=== PATIENT | female | born 1950 | race Caucasian/White ===

== ENCOUNTER → 2023-03-08 | Outpatient (CLI) | payer MEDICARE ==
--- NOTE | 2023-03-12 18:12 | MM ---
Reason for Exam: Screening (asymptomatic). Last mammogram was performed 3 year(s) and 0 month(s) ago. Patient History: Menarche at age 14. Patient has no children. Left ovary removed at age 43. Right ovary removed at age 43. Hysterectomy at age 43. Patient used Hormonal Contraceptives for 10 years. Risk Values: Cathy 5 year model risk: 1.9%. NCI Lifetime model risk: 5.4%. Prior Study Comparison: 08/03/2017 Bilateral Screening Mammogram, [facility]. 10/17/2018 Bilateral Screening Mammogram, [facility]. Tissue Density: There are scattered fibroglandular densities. Findings: Analyzed By CAD. There is no suspicious group of microcalcifications or new suspicious mass in either breast. Overall Assessment: Negative, BI-RAD 1 Management: Screening Mammogram of both breasts in 1 year. . Patient should continue monthly self-breast exams. A clinical breast exam by your physician is recommended on an annual basis. This exam should not preclude additional follow-up of suspicious palpable abnormalities. Note on Cathy scores and lifetime risk: 1. A Cathy score greater than 3% is considered moderate risk. If this is the case, consider specialist referral to assess eligibility for a risk reducing agent. 2. If overall lifetime risk for the development of breast cancer is 20% or higher, the patient may qualify for future screening with alternating mammogram and breast MRI. Electronically signed and approved by: Cindi Mendiola M.D. Radiologist
== END | disposition home or self-care (01) ==
LOC: RADMAMWWP 14:50
PROVIDERS: ATTEND Family Medicine
DX: Z12.31 Encounter for screening mammogram for malignant neoplasm of breast (principal)
CPT/HCPCS: 77063; 77067

== ENCOUNTER 2023-04-11 08:25 | Emergency (ER) | payer MEDICARE ==
[2023-04-11 08:35] VITALS: BP 106/75; PULSE 70; RESP 18; TEMP 97.8
[2023-04-11] MEDS ORDERED: ORPHENADRINE 30 MG/ML 2 ML VIAL IM STA (08:48)
[2023-04-11] MEDS ORDERED: KETOROLAC 15 MG/ML 1 ML VIAL IM STA (08:48)
--- NOTE | 2023-04-11 08:53 | ED ---
Back Pain HPI - General Chief Complaint: Back Pain/Injury Stated Complaint: Back pain Time Seen by Provider: 04/11/23 08:37 Source: patient, RN notes reviewed, old records reviewed Limitations: no limitations - History of Present Illness Initial Comments: 72-year-old obese female presents ambulatory with complaints of low back pain that radiates down her right leg. Has a history of back pain with a L3-L4 fusion in 2009. States that she has been seeing Dr. Perea recently for her recurrent back pain that started again a couple of months ago. States that she just finished a steroid Dosepak on Wednesday. She has been going to physical therapy. Did have an MRI on Wednesday, [facility] in [place]. Denies any bowel or bladder incontinence. No fevers. She did try to take two meloxicam from 2018 with no relief last night. MD Complaint: back pain -: days(s) (3) Similar Symptoms Previously: Yes Place: home Radiation: right leg Severity scale (1-10): 10 Consistency: constant Improves With: none Worsens With: movement, walking Associated Symptoms: denies other symptoms - Related Data Previous Rx's Medication Instructions Recorded Lidocaine 5% Patch [Lidoderm] 1 patch TOPICAL DAILY 14 Days #14 04/11/23 patch Allergies Allergy/AdvReac Type Severity Reaction Status Date / Time cephalexin [From Keflex] Allergy Itching Verified 04/11/23 08:35 Review of Systems ROS Statement: Those systems with pertinent positive or pertinent negative responses have been documented in the HPI. ROS Other: All systems not noted in ROS Statement are negative. Past Medical History Past Medical History: Atrial Fibrillation, Hypertension History of Any Multi-Drug Resistant Organisms: None Reported Past Surgical History: Back Surgery, Cholecystectomy, Hysterectomy, Joint Replacement, Orthopedic Surgery Past Psychological History: No Psychological Hx Reported Smoking Status: Never smoker Past Alcohol Use History: Occasional Past Drug Use History: None Reported General Exam Limitations: no limitations General appearance: alert, in no apparent distress Head exam: Present: atraumatic Eye exam: Present: normal appearance. Absent: scleral icterus, conjunctival injection, periorbital swelling Neck exam: Present: full ROM. Absent: tenderness, meningismus Respiratory exam: Absent: respiratory distress, accessory muscle use Cardiovascular Exam: Present: regular rate GI/Abdominal exam: Present: soft Extremities exam: Present: normal capillary refill. Absent: pedal edema Right Knee exam: Present: tenderness, full knee extension Neurovascular tendon exam: Present: no vascular compromise. Absent: abnormal cap refill, extremity cold to touch Back exam: Present: tenderness (LS spine), vertebral tenderness (LS spine). Absent: CVA tenderness (R), CVA tenderness (L), paraspinal tenderness, rash noted Neurological exam: Present: alert, oriented X3, normal gait Psychiatric exam: Present: normal affect, normal mood Skin exam: Present: warm, dry, normal color. Absent: cyanosis, diaphoretic, petechiae, pallor Course Vital Signs 04/11/23 08:31 Temperature 97.8 F Pulse Rate 70 Respiratory 18 Rate Blood Pressure 106/75 O2 Sat by Pulse 100 Oximetry Medical Decision Making - Medical Decision Making Was pt. sent in by a medical professional or institution ([facility] He, FUEL YARD OPERATOR, urgent care, hospital, or fci...) When possible be specific @ -No Did you speak to anyone other than the patient for history (EMS, parent, family, police, friend...)? What history was obtained from this source @ -No Did you review nursing and triage notes (agree or disagree)? Why? @ -I reviewed and agree with nursing and triage notes Were old charts reviewed (outside hosp., previous admission, EMS record, old EKG, old radiological studies, urgent care reports/EKG's, fci records)? Report findings @ -No old charts were reviewed Differential Diagnosis (chest pain, altered mental status, abdominal pain women, abdominal pain men, vaginal bleeding, weakness, fever, dyspnea, syncope, headache, dizziness, GI bleed, back pain, seizure, CVA, palpatations, mental health, musculoskeletal)? @ -Differential Back Pain: Strain, zoster, cauda equina syndrome, epidural abscess, vertebral osteomyelitis, discitis, fracture, subluxation, disc herniation, DJD, spinal stenosis, dissection, AAA, pancreatitis, peptic ulcer disease, pyelonephritis, kidney stone, this is not meant to be an all-inclusive list. EKG interpreted by me (3pts min.). @ -n/a X-rays interpreted by me (1pt min.). @ -yes X-ray interpreted by me shows evidence of lumbar fusion with hardware. Hardware intact. No acute fractures noted. CT interpreted by me (1pt min.). @ -None done U/S interpreted by me (1pt. min.). @ -None done What testing was considered but not performed or refused? (CT, X-rays, U/S, labs)? Why? @ -None What meds were considered but not given or refused? Why? @ -I did consider steroids however patient finished a Medrol Dosepak yesterday with no relief Did you discuss the management of the patient with other professionals (professionals i.e. DrJess, PA, FUEL YARD OPERATOR, lab, RT, psych nurse, medical social worker, open cut examiner, teacher, title officer, case specialist)? Give summary @ -No Was smoking cessation discussed for >3mins.? @ -No Was critical care preformed (if so, how long)? @ -No Were there social determinants of health that impacted care today? How? (Homel essness, low income, unemployed, alcoholism, drug addiction, transportation, low edu. Level, literacy, decrease access to med. care, fdc, rehab)? @ -No Was there de-escalation of care discussed even if they declined (Discuss DNR or withdrawal of care, Hospice)? DNR status @ -No What co-morbidities impacted this encounter? (DM, HTN, Smoking, COPD, CAD, Cancer, CVA, ARF, Chemo, Hep., AIDS, mental health diagnosis, sleep apnea, morbid obesity)? @ -Obesity, chronic back pain, hypertension Was patient admitted / discharged? Hospital course, mention meds given and route, prescriptions, significant lab abnormalities, going to OR and other pertinent info. @ -Discharged 72-year-old obese female presents ambulatory with complaints of low back pain that radiates down her right leg. Has a history of back pain with a L3-L4 fusion in 2009. States that she has been seeing Dr. Perea recently for her recurrent back pain that started again a couple of months ago. States that she just finished a steroid Dosepak on Wednesday. She has been going to physical therapy. Did have an MRI on Wednesday, at [facility] in [place]. She did take two meloxicam from 2019 prescriptions with no relief last night. Patient was observed ambulating with a steady gait. Denies any history of cancer. Denies any bowel or bladder incontinence, no fevers. No saddle anesthesia. Denies any trauma. No evidence of swelling bruising or abrasions to the lumbar spine. Patient states pain is relieved when leaning forward or sitting, worsened at night having difficulty laying flat and getting comfortable. Patient states in physical therapy last appointment was . Pain started Wednesday while in the shower. We did discuss the possibility that this may be pain exacerbated by physical therapy. Radiologist interpretation no acute fracture. Fixation changes with hardware intact. Mild multilevel disc degeneration. Patient was given Toradol, Norflex and Lidoderm patch with some relief. Patient been given IM morphine. She is agreeable to discharge following up with Dr. Hazel solitario this week. States since she has been in the ER she should be able to get in sooner. She was given a prescription for Lidoderm patches. Also given a take-home pack of Tylenol 3 to use at night to help with pain. Directed to follow up with Dr. Perea this week. Case discussed with Dr. Falcon Undiagnosed new problem with uncertain prognosis? @ -No Drug Therapy requiring intensive monitoring for toxicity (Heparin, Nitro, Insulin, Cardizem)? @ -No Were any procedures done? @ -No Diagnosis/symptom? @ -Chronic low back pain Acute, or Chronic, or Acute on Chronic? @ -Acute on chronic Uncomplicated (without systemic symptoms) or Complicated (systemic symptoms)? @ -Uncomplicated Side effects of treatment? @ -No Exacerbation, Progression, or Severe Exacerbation? @ -No Poses a threat to life or bodily function? How? (Chest pain, [place], [place], pneumonia, PE, COPD, DKA, ARF, appy, cholecystitis, CVA, Diverticulitis, Homicidal, Suicidal, threat to staff... and all critical care pts) @ -No Disposition Clinical Impression: Chronic low back pain Disposition: HOME SELF-CARE Condition: Good Instructions (If sedation given, give patient instructions): Chronic Back Pain (DC), Lower Back Exercises (ED) Additional Instructions: Follow-up with Dr. Perea this week. Use Lidoderm patches in addition to Tylenol and Motrin for pain. You can take the Tylenol 3 as provided at night to help with pain as needed. Return to the emergency room with any new or concerning symptoms including fever, bowel or bladder incontinence or inability to ambulate. Prescriptions: Lidocaine 5% Patch [Lidoderm] 1 patch TOPICAL DAILY 14 Days #14 patch Is patient prescribed a controlled substance at d/c from ED?: No Referrals: Reilly Langston DO [Primary Care Provider] - 1-2 days Time of Disposition: 09:34
[2023-04-11] MEDS ORDERED: LIDOCAINE 5% PATCH TOPICAL SCH (09:00)
--- NOTE | 2023-04-11 09:31 | XR ---
EXAMINATION TYPE: XR lumbosacral spine min 4V DATE OF EXAM: 04/11/2023 9:19 AM INDICATION: Patient age:Female; 72 years old; Reason for study: pain; COMPARISON: None TECHNIQUE: Frontal, lateral and coned in L5-S1 lateral views of the spine. FINDINGS: Fixation hardware in the lumbar spine at L4-L5 and S1 with discectomy at L4-L5 and L5-S1. H ardware appears intact. Multilevel degeneration changes throughout the spine with osteophyte formatio n disc space narrowing and facet joint arthropathy. There is other source of the arterial vasculature . No evidence of any acute osseous pathology. Anterior wedging of the T11 and T10 vertebral bodies pr esent. There is normal alignment of the lumbar vertebral bodies. No significant degeneration changes throughout the spine. IMPRESSION: 1. No acute fracture. 2. Fixation changes with hardware intact. 3. Mild Multilevel disc degeneration.
[2023-04-11] MEDS ORDERED: MORPHINE SULFATE 4 MG/ML SYRINGE IM STA (09:38)
[2023-04-11] MEDS ORDERED: ACET/COD 300 MG/30 MG STARTER PACK 6 TAB BTL PO STA (09:41)
== END 2023-04-11 10:02 | disposition home or self-care (01) ==
LOC: EC 08:25
DX: G89.29 Other chronic pain (principal); M54.50 Low back pain, unspecified; I48.91 Unspecified atrial fibrillation; I10 Essential (primary) hypertension; Z88.1 Allergy status to other antibiotic agents
CPT/HCPCS: 72110; 99283; 96372 ×3; J2270; J2360; J1885

== ENCOUNTER 2023-04-12 08:49 | Emergency (ER) | payer MEDICARE ==
[2023-04-12] MEDS ORDERED: ORPHENADRINE 30 MG/ML 2 ML VIAL IM STA (10:24)
[2023-04-12] MEDS ORDERED: HYDROmorphone 1 MG/ML 1 ML SYRINGE IM STA (10:25)
[2023-04-12] MEDS ORDERED: KETOROLAC 15 MG/ML 1 ML VIAL IM STA (10:26)
[2023-04-12] MEDS ORDERED: CYCLOBENZAPRINE 10 MG TAB PO STA (10:26)
--- NOTE | 2023-04-12 11:16 | ED ---
Back Pain HPI - General Chief Complaint: Back Pain/Injury Stated Complaint: Back and knee pain Time Seen by Provider: 04/12/23 10:11 Source: patient Limitations: no limitations - History of Present Illness Initial Comments: Patient is 72-year-old female who presents to the emergency department with a chief complaint of back pain. Patient has history of chronic back pain which h as been managed well until last week when she started to have increased pain. She denies injury or falls. Pain is in the lower back worse with movement. There is tingling down the right lower extremity. She denies numbness and tingling in the groin and buttock region. Denies loss of bowel and bladder function. Denies leg weakness. She recently finished a course of prednisone. She was evaluated in the emergency department yesterday for this complaint states her pain remains uncontrolled despite discharge medication. Patient has an appointment with her pre certification specialist tomorrow. - Related Data Previous Rx's Medication Instructions Recorded Lidocaine 5% Patch [Lidoderm] 1 patch TOPICAL DAILY 14 Days #14 04/11/23 patch Allergies Allergy/AdvReac Type Severity Reaction Status Date / Time cephalexin [From Keflex] Allergy Itching Verified 04/12/23 09:02 Review of Systems ROS Statement: Those systems with pertinent positive or pertinent negative responses have been documented in the HPI. ROS Other: All systems not noted in ROS Statement are negative. Past Medical History Past Medical History: Atrial Fibrillation, Hypertension History of Any Multi-Drug Resistant Organisms: None Reported Past Surgical History: Back Surgery, Cholecystectomy, Hysterectomy, Joint Replacement, Orthopedic Surgery Past Psychological History: No Psychological Hx Reported Smoking Status: Never smoker Past Alcohol Use History: Occasional Past Drug Use History: None Reported General Exam Limitations: no limitations General appearance: alert, in no apparent distress Eye exam: Present: normal appearance, PERRL, EOMI. Absent: scleral icterus, conjunctival injection, periorbital swelling Respiratory exam: Present: normal lung sounds bilaterally. Absent: respiratory distress, wheezes, rales, rhonchi, stridor Cardiovascular Exam: Present: regular rate, normal rhythm, normal heart sounds. Absent: systolic murmur, diastolic murmur, rubs, gallop, clicks Extremities exam: Present: normal inspection, full ROM, normal capillary refill Back exam: Present: normal inspection, full ROM. Absent: tenderness, CVA tenderness (R), CVA tenderness (L) Expanded Back exam: Absent: saddle anesthesia Neurological exam: Present: alert, oriented X3, CN II-XII intact Expanded Sensory exam: Upper Extremity Light Touch: Normal, Lower Extremity Light Touch: Normal Motor strength exam: RUE: 5, LUE: 5, RLE: 5, LLE: 5 Psychiatric exam: Present: normal affect, normal mood Skin exam: Present: warm, dry, intact, normal color. Absent: rash Course Vital Signs 04/12/23 04/12/23 08:53 11:49 Temperature 97.3 F L 97.5 F L Pulse Rate 65 80 Respiratory 18 16 Rate Blood Pressure 108/77 102/45 O2 Sat by Pulse 98 97 Oximetry Medical Decision Making - Medical Decision Making Was pt. sent in by a medical professional or institution ([facility] He, ASSISTANT TODDLER TEACHER, urgent care, hospital, or alf...) When possible be specific @ -No Did you speak to anyone other than the patient for history (EMS, parent, family, police, friend...)? What history was obtained from this source @ -No Did you review nursing and triage notes (agree or disagree)? Why? @ -I reviewed and agree with nursing and triage notes Were old charts reviewed (outside hosp., previous admission, EMS record, old EKG, old radiological studies, urgent care reports/EKG's, alf records)? Report findings @ -No old charts were reviewed Differential Diagnosis (chest pain, altered mental status, abdominal pain women, abdominal pain men, vaginal bleeding, weakness, fever, dyspnea, syncope, headache, dizziness, GI bleed, back pain, seizure, CVA, palpatations, mental health)? @ -Differential Back Pain: Strain, zoster, cauda equina syndrome, epidural abscess, vertebral osteomyelitis, discitis, fracture, subluxation, disc herniation, DJD, spinal stenosis, dissection, AAA, pancreatitis, peptic ulcer disease, pyelonephritis, kidney stone, this is not meant to be an all-inclusive list. EKG interpreted by me (3pts min.). @ -None X-rays interpreted by me (1pt min.). @ -None done CT interpreted by me (1pt min.). @ -None done U/S interpreted by me (1pt. min.). @ -None done What testing was considered but not performed or refused? (CT, X-rays, U/S, labs)? Why? @Considered imaging however patient does have midline tenderness. No symptoms or signs of cauda equina What meds were considered but not given or refused? Why? @ -None Did you discuss the management of the patient with other professionals (professionals i.e. , PA, ASSISTANT TODDLER TEACHER, lab, RT, psych nurse, child welfare social worker, employment advisor, teacher, chief risk officer, immigration case worker)? Give summary @ -No Was smoking cessation discussed for >3mins.? @ -No Was critical care preformed (if so, how long)? @ -No Were there social determinants of health that impacted care today? How? (Homelessness, low income, unemployed, alcoholism, drug addiction, transportation, low edu. Level, literacy, decrease access to med. care, nursing home, rehab)? @ -No Was there de-escalation of care discussed even if they declined (Discuss DNR or withdrawal of care, Hospice)? DNR status @ -No What co-morbidities impacted this encounter? (DM, HTN, Smoking, COPD, CAD, Cancer, CVA, ARF, Chemo, Hep., AIDS, mental health diagnosis, sleep apnea, morbid obesity)? @ -None Was patient admitted / discharged? Hospital course, mention meds given and route, prescriptions, significant lab abnormalities, going to OR and other pertinent info. @ - Discharged. Pain controlled no symptoms or signs of cauda equina. Patient to follow up with her pre certification specialist tomorrow Undiagnosed new problem with uncertain prognosis? @ -[No] Drug Therapy requiring intensive monitoring for toxicity (Heparin, Nitro, Insulin, Cardizem)? @ -[No] Were any procedures done? @ -[No] Diagnosis/symptom? @ -Lumbar radiculopathy Acute, or Chronic, or Acute on Chronic? @ -Acute on chronic Uncomplicated (without systemic symptoms) or Complicated (systemic symptoms)? @ -Uncomplicated Side effects of treatment? @ -[No] Exacerbation, Progression, or Severe Exacerbation? @ -[No] Poses a threat to life or bodily function? How? (Chest pain, [place], [place], pneumonia, PE, COPD, DKA, ARF, appy, cholecystitis, CVA, Diverticulitis, Homicidal, Suicidal, threat to staff... and all critical care pts) @ -[No] Dr. Denis is my attending Disposition Clinical Impression: Lumbar radiculopathy Disposition: HOME SELF-CARE Condition: Good Instructions (If sedation given, give patient instructions): Acute Low Back Pain (ED) Additional Instructions: Take medication as directed which was prescribed to yesterday. Follow-up with Dr. Perea tomorrow as planned. Return to the emergency department if you experience new, concerning, or worsening symptoms. Is patient prescribed a controlled substance at d/c from ED?: No Referrals: Reilly Langston DO [Primary Care Provider] - 1-2 days
[2023-04-12 11:52] VITALS: BP 102/45; PULSE 80; RESP 16; TEMP 97.5
== END 2023-04-12 11:55 | disposition home or self-care (01) ==
LOC: EC 08:49
DX: M54.16 Radiculopathy, lumbar region (principal); I48.91 Unspecified atrial fibrillation; I10 Essential (primary) hypertension
CPT/HCPCS: 99283; 96372 ×2; J1170; J1885

== ENCOUNTER → 2024-03-09 | Outpatient (CLI) | payer MEDICARE ==
--- NOTE | 2024-03-11 20:17 | MM ---
Reason for Exam: Screening (asymptomatic). Last screening mammogram was performed 12 month(s) ago. Patient History: Menarche at age 14. Patient has no children. Left ovary removed at age 43. Right ovary removed at age 43. Hysterectomy at age 43. Postmenopausal. Patient used Hormonal Contraceptives for 10 years. Risk Values: Cathy 5 year model risk: 2.0%. NCI Lifetime model risk: 5.1%. Prior Study Comparison: 08/03/2017 Bilateral Screening Mammogram, [facility]. 10/17/2018 Bilateral Screening Mammogram, [facility]. 03/08/2023 Bilateral MG 3D screening mammo w/cad, [facility]. Tissue Density: There are scattered areas of fibroglandular density. Findings: Analyzed By CAD. Bilateral oil cyst calcifications redemonstrated. Superior anterior asymmetric density left upper lobe view is unchanged. There is no suspicious group of microcalcifications or new suspicious mass in either breast. Overall Assessment: Benign, BI-RAD 2 Management: Screening Mammogram of both breasts in 1 year. . Patient should continue monthly self-breast exams. A clinical breast exam by your physician is recommended on an annual basis. This exam should not preclude additional follow-up of suspicious palpable abnormalities. Note on Cathy scores and lifetime risk: 1. A Cathy score greater than 3% is considered moderate risk. If this is the case, consider specialist referral to assess eligibility for a risk reducing agent. 2. If overall lifetime risk for the development of breast cancer is 20% or higher, the patient may qualify for future screening with alternating mammogram and breast MRI. Electronically signed and approved by: Cindi Mendiola M.D. Radiologist
== END | disposition home or self-care (01) ==
LOC: RADMAMWWP 09:10
PROVIDERS: ATTEND Family Medicine
DX: Z12.31 Encounter for screening mammogram for malignant neoplasm of breast (principal); Z78.0 Asymptomatic menopausal state
CPT/HCPCS: 77063; 77067

== ENCOUNTER 2024-07-27 10:43 | Emergency (ER) | payer MEDICARE ==
--- NOTE | 2024-07-27 11:09 | ED ---
General Adult HPI - General Chief complaint: Nausea/Vomiting/Diarrhea Stated complaint: NV Time Seen by Provider: 07/27/24 10:55 Source: patient, EMS, RN notes reviewed, old records reviewed Mode of arrival: EMS Limitations: no limitations - History of Present Illness Initial comments: This is a 73-year-old female presents to the emergency department stating that she has been vomiting and nauseous and having diarrhea since Wednesday. Patient states to her family members also had this earlier in the week and she thinks she got it from them and they were all moving together. Patient denies any fever chills. Patient states she has been having some abdominal discomfort for the last few weeks it is unchanged today. Patient states she has an appointment on August 02 with a shipping agent. Patient denies any chest pain difficulty breathing shortness of breath patient is any abdominal pain. Patient has any dysuria hematuria urinary frequency. Patient [place] any back pain. Patient states she just cannot keep any liquids or food down and she is having copious amounts of diarrhea. - Related Data Previous Rx's Medication Instructions Recorded Lidocaine 5% Patch [Lidoderm] 1 patch TOPICAL DAILY 14 Days #14 04/11/23 patch Allergies Allergy/AdvReac Type Severity Reaction Status Date / Time cephalexin [From Keflex] Allergy Itching Verified 07/27/24 10:47 Review of Systems ROS Statement: Those systems with pertinent positive or pertinent negative responses have been documented in the HPI. ROS Other: All systems not noted in ROS Statement are negative. Past Medical History Past Medical History: Atrial Fibrillation, Hypertension History of Any Multi-Drug Resistant Organisms: None Reported Past Surgical History: Back Surgery, Cholecystectomy, Hysterectomy, Joint Replacement, Orthopedic Surgery Past Psychological History: No Psychological Hx Reported Smoking Status: Never smoker Past Alcohol Use History: Occasional Past Drug Use History: None Reported General Exam - General Exam Comments Initial Comments: GENERAL: Patient is well-developed and well-nourished. Patient is nontoxic and well- hydrated and is in mild distress. ENT: Neck is soft and supple. No significant lymphadenopathy is noted. Oropharynx is clear. Moist mucous membranes. Neck has full range of motion without eliciting any pain. EYES: The sclera were anicteric and conjunctiva were pink and moist. Extraocular movements were intact and pupils were equal round and reactive to light. Eyelids were unremarkable. PULMONARY: Unlabored respirations. Good breath sounds bilaterally. No audible rales rhonchi or wheezing was noted. CARDIOVASCULAR: There is a regular rate and rhythm without any murmurs gallops or rubs. ABDOMEN: Soft and nontender with normal bowel sounds. SKIN: Skin is clear with no lesions or rashes and otherwise unremarkable. NEUROLOGIC: Patient is alert and oriented x3. Cranial nerves II through XII are grossly intact. Motor and sensory are also intact. Normal speech, volume and content. Symmetrical smile. MUSCULOSKELETAL: Normal extremities with adequate strength and full range of motion. LYMPHATICS: No significant lymphadenopathy is noted PSYCHIATRIC: Normal psychiatric evaluation. Limitations: no limitations Course Vital Signs 07/27/24 07/27/24 10:44 12:16 Temperature 97.9 F Pulse Rate 73 Respiratory 18 16 Rate Blood Pressure 140/62 157/62 O2 Sat by Pulse 98 Oximetry Medical Decision Making - Medical Decision Making Was pt. sent in by a medical professional or institution ([facility] He, TRANSIT OPERATOR, urgent care, hospital, or intermediate...) When possible be specific @ -No Did you speak to anyone other than the patient for history (EMS, parent, family, police, friend...)? What history was obtained from this source @ -No Did you review nursing and triage notes (agree or disagree)? Why? @ -I reviewed and agree with nursing and triage notes Were old charts reviewed (outside hosp., previous admission, EMS record, old EKG, old radiological studies, urgent care reports/EKG's, intermediate records)? Report findings @ -No old charts were reviewed Differential Diagnosis? @ -Differential Abdominal Pain Women: Appendicitis, Cholecystitis, diverticulosis, ischemic bowel, pancreatitis, hepatitis, UTI, gastroenteritis, AAA, incarcerated hernia, bowel obstruction, constipation, inflammatory bowel, hepatitis, peptic ulcer disease, splenic infa rction, perforated viscus, vulvitis, ovarian torsion, PID, kidney stone, placenta abruption, this is not meant to be an all-inclusive list EKG interpreted by me (3pts min.). @ -As above X-rays interpreted by me (1pt min.). @ -None done CT interpreted by me (1pt min.). @ -None done U/S interpreted by me (1pt. min.). @ -None done What testing was considered but not performed or refused? (CT, X-rays, U/S, labs)? Why? @ -None What meds were considered but not given or refused? Why? @ -None Did you discuss the management of the patient with other professionals (professionals i.e. , PA, TRANSIT OPERATOR, lab, RT, psych nurse, social media coordinator, drafter topographical, teacher, corporate banking officer, watch case polisher)? Give summary @ -No Was smoking cessation discussed for >3mins.? @ -No Was critical care preformed (if so, how long)? @ -No Were there social determinants of health that impacted care today? How? (Homelessness, low income, unemployed, alcoholism, drug addiction, transportation, low edu. Level, literacy, decrease access to med. care, correction, rehab)? @ -No Was there de-escalation of care discussed even if they declined (Discuss DNR or withdrawal of care, Hospice)? DNR status @ -No What co-morbidities impacted this encounter? (DM, HTN, Smoking, COPD, CAD, Cancer, CVA, ARF, Chemo, Hep., AIDS, mental health diagnosis, sleep apnea, morbid obesity)? @ -None Was patient admitted / discharged? Hospital course, mention meds given and route, prescriptions, significant lab abnormalities, going to OR and other pertinent info. @ -Patient received 2 L of IV fluids. Patient received Zofran and Lomotil. Patient also was low on magnesium so 1 g of magnesium sulfate was given to her. Patient was reevaluated by myself after all the lab work came back and she stated that she was feeling considerably better she denied any abdominal pain at this time and states she would have already has an appointment to follow-up with previous abdominal problems with a shipping agent Undiagnosed new problem with uncertain prognosis? @ -No Drug Therapy requiring intensive monitoring for toxicity (Heparin, Nitro, Insulin, Cardizem)? @ -No Were any procedures done? @ -No Diagnosis/symptom? @ -Gastroenteritis Acute, or Chronic, or Acute on Chronic? @ -Acute Uncomplicated (without systemic symptoms) or Complicated (systemic symptoms)? @ -Complicated Side effects of treatment? @ -No Exacerbation, Progression, or Severe Exacerbation? @ -No Poses a threat to life or bodily function? How? (Chest pain, [place], [place], pneumonia, PE, COPD, DKA, ARF, appy, cholecystitis, CVA, Diverticulitis, Homicidal, Suicidal, threat to staff... and all critical care pts) @ -No Diagnosis/symptom? @ -Hypomagnesemia Acute, or Chronic, or Acute on Chronic? @ -Acute Uncomplicated (without systemic symptoms) or Complicated (systemic symptoms)? @ -Uncomplicated Side effects of treatment? @ -No Exacerbation, Progression, or Severe Exacerbation? @ -No Poses a threat to life or bodily function? How? (Chest pain, [place], [place], pneumonia, PE, COPD, DKA, ARF, appy, cholecystitis, CVA, Diverticulitis, Homicidal, Suicidal, threat to staff... and all critical care pts) @ -No - Lab Data Result diagrams: 07/27/24 11:14 07/27/24 11:14 Lab Results 07/27/24 07/27/24 07/27/24 Range/Units 11:14 11:14 13:23 WBC 16.3 H (3.8-10.6) k/uL RBC 3.96 (3.80-5.40) m/uL Hgb 10.4 L (11.4-16.0) gm/dL Hct 32.6 L (34.0-46.0) % MCV 82.3 (80.0-100.0) fL MCH 26.3 (25.0-35.0) pg MCHC 31.9 (31.0-37.0) g/dL RDW 15.5 (11.5-15.5) % Plt Count 440 (150-450) k/uL MPV 8.0 Neutrophils % 85 % Lymphocytes % 9 % Monocytes % 5 % Eosinophils % 1 % Basophils % 0 % Neutrophils # 13.8 H (1.3-7.7) k/uL Lymphocytes # 1.5 (1.0-4.8) k/uL Monocytes # 0.7 (0-1.0) k/uL Eosinophils # 0.2 (0-0.7) k/uL Basophils # 0.0 (0-0.2) k/uL Hypochromasia Slight Sodium 136 L (137-145) mmol/L Potassium 3.6 (3.5-5.1) mmol/L Chloride 103 (98-107) mmol/L Carbon Dioxide 25 (22-30) mmol/L Anion Gap 8 mmol/L BUN 17 (7-17) mg/dL Creatinine 1.53 H (0.52-1.04) mg/dL Est GFR (CKD-EPI)AfAm 39 (>60 ml/min/1.73 sqM) Est GFR (CKD-EPI)NonAf 34 (>60 ml/min/1.73 sqM) Glucose 232 H (74-99) mg/dL Calcium 8.7 (8.4-10.2) mg/dL Magnesium 1.3 L (1.6-2.3) mg/dL Total Bilirubin 0.7 (0.2-1.3) mg/dL AST 44 H (14-36) U/L ALT 32 (4-34) U/L Alkaline Phosphatase 135 H (38-126) U/L Total Protein 6.3 (6.3-8.2) g/dL Albumin 3.3 L (3.5-5.0) g/dL Urine Color Colorless Urine Appearance Clear (Clear) Urine pH 5.5 (5.0-8.0) Ur Specific [place] 1.006 (1.001-1.035) Urine Protein Negative (Negative) Urine Glucose (UA) Negative (Negative) Urine Ketones Negative (Negative) Urine Blood Negative (Negative) Urine Nitrite Negative (Negative) Urine Bilirubin Negative (Negative) Urine Urobilinogen <2.0 (<2.0) mg/dL Ur Leukocyte Esterase Negative (Negative) Disposition Clinical Impression: Gastroenteritis, Hypomagnesemia Disposition: HOME SELF-CARE Condition: Good Instructions (If sedation given, give patient instructions): Gastroenteritis (ED) Additional Instructions: Patient should take Zofran and Lomotil as prescribed Is patient prescribed a controlled substance at d/c from ED?: No Referrals: Reilly Langston DO [Primary Care Provider] - 1-2 days Time of Disposition: 13:55
[2024-07-27 11:19] LABS: Basophils % (A) 0 %; Eosinophils # (A) 0.2 k/uL (0-0.7); Eosinophils % (A) 1 %; HCT 32.6 % (34.0-46.0); HGB 10.4 gm/dL (11.4-16.0); Hypochromasia Slight; Lymphocytes # (A) 1.5 k/uL (1.0-4.8); Lymphocytes % (A) 9 %; MCH 26.3 pg (25.0-35.0); MCHC 31.9 g/dL (31.0-37.0); MCV 82.3 fL (80.0-100.0); Monocytes # (A) 0.7 k/uL (0-1.0); Monocytes % (A) 5 %; Neutrophils # (A) 13.8 k/uL (1.3-7.7); Neutrophils % (A) 85 %; Platelet Count 440 k/uL (150-450); RBC 3.96 m/uL (3.80-5.40); RDW 15.5 % (11.5-15.5); WBC 16.3 k/uL (3.8-10.6)
[2024-07-27] MEDS: SODIUM CHLORIDE 0.9% 2,000 ML IV ONE (11:23)
[2024-07-27] MEDS: DIPHENOX-ATROP 2.5-0.025 MG 1 EACH TAB PO STA (11:23)
[2024-07-27 11:40] LABS: ALT 32 U/L (4-34); African American GFR (CKD) 39 (>60 ml/min/1.73 sqM); Albumin 3.3 g/dL (3.5-5.0); Anion Gap 8 mmol/L; Blood Urea Nitrogen 17 mg/dL (7-17); Calcium 8.7 mg/dL (8.4-10.2); Carbon Dioxide 25 mmol/L (22-30); Chloride 103 mmol/L (98-107); Glucose 232 mg/dL (74-99); Non-African American GFR(CKD) 34 (>60 ml/min/1.73 sqM); Sodium 136 mmol/L (137-145); Total Bilirubin 0.7 mg/dL (0.2-1.3); Total Protein 6.3 g/dL (6.3-8.2)
[2024-07-27 11:41] LABS: AST 44 U/L (14-36); Alkaline Phosphatase 135 U/L (38-126); Magnesium 1.3 mg/dL (1.6-2.3); Potassium 3.6 mmol/L (3.5-5.1)
[2024-07-27 12:17] VITALS: RESP 16
[2024-07-27 13:38] LABS: Appearance,Urine Clear (Clear); Bilirubin,Urine Negative (Negative); Blood,Urine Negative (Negative); Color,Urine Colorless; Glucose,Urine (UA) Negative (Negative); Ketones,Urine Negative (Negative); Leukocyte Esterase,Urine Negative (Negative); Nitrite,Urine Negative (Negative); PH, Urine 5.5 (5.0-8.0); Protein,Urine Negative (Negative); Specific Gravity,Urine 1.006 (1.001-1.035); Urobilinogen,Urine <2.0 mg/dL (<2.0)
[2024-07-27] MEDS: MAGNESIUM SULFATE-D5W PMX 1 GM in DEXTROSE/WATER 1 100ML.BAG IVPB ONE (13:50)
[2024-07-27] MEDS: ONDANSETRON 4 MG/2 ML VIAL IVP STA (13:55)
[2024-07-27] MEDS: DIPHENOX-ATROP STARTER PACK 8 TAB BTL PO STA (15:17)
[2024-07-27] MEDS: ONDANSETRON 4 MG ODT STARTER PACK 2 TAB BTL PO STA (15:17)
[2024-07-27 15:20] VITALS: BP 114/42; PULSE 84; TEMP 98.4
--- NOTE | 2024-08-05 16:55 | US ---
EXAMINATION TYPE: US abdomen limited DATE OF EXAM: 08/05/2024 COMPARISON: NONE CLINICAL INDICATION: Female, 73 years old with history of Pain of the abdomen; Follow up to ct scan. Limited due to body habitus. TECHNIQUE: FINDINGS: Scanned left upper and lower abdominal no definite area of fluid visualized. IMPRESSION: 1. No significant fluid accumulation evident within the abdomen [facility], Workstation: [facility], 08/05/2024 4:53 PM
== END 2024-07-27 15:23 | disposition home or self-care (01) ==
LOC: EC 10:43
CPT/HCPCS: 36415; 80053; 81003; 83735; 85025; 96361; 96365; 96375; 99285

== ENCOUNTER 2024-07-30 02:50 | Inpatient (IN) | payer MEDICARE ==
--- NOTE | 2024-07-30 03:38 | ED ---
Nausea/Vomiting/Diarrhea HPI - General Chief complaint: Nausea/Vomiting/Diarrhea Stated complaint: N/V Time Seen by Provider: 07/30/24 02:55 Source: EMS Mode of arrival: EMS - History of Present Illness Initial comments: 73-year-old female with past medical history of A-fib, hypertension presents emergency department with nausea, vomiting and left sided abdominal pain. Patient was seen 3 days ago for same complaint. She was evaluated in the emergency department and discharged home with a Zofran starter pack. States that the Zofran did not assist her. She continues to have several episodes of nausea and vomiting per day. She cannot hold down any food. She is also had upwards of 6 episodes of loose watery diarrhea per day. No sick contacts with similar symptoms. Has left-sided abdominal pain. Continues to make urine. Black or bloody stools. No other alleviating, precipitating or modifying factors - Related Data Home Medications Medication Instructions Recorded Confirmed Atorvastatin [Lipitor] 20 mg PO DAILY 07/30/24 07/30/24 Calcium Carbonate/Vitamin D3 1 tab PO DAILY 07/30/24 07/30/24 [Calcium 600 mg-Vit D3 5 mcg (200 unit)] Cetirizine HCl [Zyrtec] 10 mg PO DAILY 07/30/24 07/30/24 Dofetilide [Tikosyn] 500 mcg PO BID 07/30/24 07/30/24 Multivitamins, Thera [Multivitamin 1 tab PO DAILY 07/30/24 07/30/24 (formulary)] Potassium Chloride ER [K-Dur 20] 20 meq PO BID 07/30/24 07/30/24 Rivaroxaban [Xarelto] 20 mg PO DAILY 07/30/24 07/30/24 Sucralfate [Carafate] 1 gm PO QID 07/30/24 07/30/24 dilTIAZem HCL [Tiazac] 360 mg PO DAILY 07/30/24 07/30/24 metFORMIN HCL [Glucophage] 500 mg PO BID 07/30/24 07/30/24 Previous Rx's Medication Instructions Recorded Cholestyramine (with Sugar) 4 gm PO BID@1000,1800 3 Days #6 08/07/24 [Questran Packet] packet Hydrocortisone Pr Cream 1 applic RECTAL BID 3 Days #1 each 08/07/24 [Proctosol-Hc 2.5%] Losartan [Cozaar] 100 mg PO DAILY #60 tab 08/07/24 Magnesium Oxide [Mag-Ox] 400 mg PO BID 7 Days #14 tablet 08/07/24 Pantoprazole Sodium [Protonix] 40 mg PO BID #60 tab 08/07/24 Potassium Chloride ER [K-Dur 20] 20 meq PO BID 7 Days #14 tab 08/07/24 Sodium Bicarbonate Tab 650 mg PO BID #60 tab 08/07/24 carvediloL [Coreg] 25 mg PO BID #60 tablet 08/07/24 hydrALAZINE HCL [Apresoline] 100 mg PO TID #180 tab 08/07/24 Allergies Allergy/AdvReac Type Severity Reaction Status Date / Time cephalexin [From Keflex] Allergy Itching Verified 07/30/24 10:15 Review of Systems ROS Statement: Those systems with pertinent positive or pertinent negative responses have been documented in the HPI. ROS Other: All systems not noted in ROS Statement are negative. Past Medical History Past Medical History: Atrial Fibrillation, Hypertension History of Any Multi-Drug Resistant Organisms: None Reported Past Surgical History: Ablation, Back Surgery, Cholecystectomy, Hysterectomy, Joint Replacement, Orthopedic Surgery Past Psychological History: No Psychological Hx Reported Smoking Status: Never smoker Past Alcohol Use History: Occasional Past Drug Use History: None Reported General Exam General appearance: alert, in no apparent distress Head exam: Present: atraumatic, normocephalic, normal inspection Eye exam: Present: normal appearance, PERRL, EOMI. Absent: scleral icterus, conjunctival injection, periorbital swelling ENT exam: Present: normal exam, mucous membranes moist Neck exam: Present: normal inspection. Absent: tenderness, meningismus, lymphadenopathy Respiratory exam: Present: normal lung sounds bilaterally. Absent: respiratory distress, wheezes, rales, rhonchi, stridor Cardiovascular Exam: Present: regular rate, normal rhythm, normal heart sounds. Absent: systolic murmur, diastolic murmur, rubs, gallop, clicks GI/Abdominal exam: Present: tenderness, normal bowel sounds. Absent: distended, guarding, rebound, rigid Extremities exam: Present: normal inspection, full ROM, normal capillary refill. Absent: tenderness, pedal edema, joint swelling, calf tenderness Back exam: Present: normal inspection Neurological exam: Present: alert, oriented X3, CN II-XII intact Psychiatric exam: Present: normal affect, normal mood Skin exam: Present: warm, dry, intact, normal color. Absent: rash Course Vital Signs 07/30/24 07/30/24 07/30/24 02:52 04:22 05:08 Temperature 98.1 F Pulse Rate 71 66 64 Respiratory 18 18 16 Rate Blood Pressure 137/68 122/63 127/60 O2 Sat by Pulse 98 95 95 Oximetry 07/30/24 07/30/24 07/30/24 06:47 12:54 16:41 Temperature Pulse Rate 62 78 80 Respiratory 18 18 18 Rate Blood Pressure 123/62 133/61 128/68 O2 Sat by Pulse 96 98 98 Oximetry Medical Decision Making - Medical Decision Making Was pt. sent in by a medical professional or institution ([facility], COMBUSTION ENGINEER, urgent care, hospital, or jail...) When possible be specific @ -No Did you speak to anyone other than the patient for history (EMS, parent, family, police, friend...)? What history was obtained from this source @ -Spoke with for history Did you review nursing and triage notes (agree or disagree)? Why? @ -I reviewed and agree with nursing and triage notes Were old charts reviewed (outside hosp., previous admission, EMS record, old EKG, old radiological studies, urgent care reports/EKG's, jail records)? Report findings @ -I reviewed the ED visit report from 3 days ago where patient was seen for same complaint Differential Diagnosis (chest pain, altered mental status, abdominal pain women, abdominal pain men, vaginal bleeding, weakness, fever, dyspnea, syncope, headache, dizziness, GI bleed, back pain, seizure, CVA, palpatations, mental health, musculoskeletal)? @ -Differential Abdominal Pain Women: Appendicitis, Cholecystitis, diverticulosis, ischemic bowel, pancreatitis, hepatitis, UTI, gastroenteritis, AAA, incarcerated hernia, bowel obstruction, constipation, inflammatory bowel, hepatitis, peptic ulcer disease, splenic infarction, perforated viscus, vulvitis, ovarian torsion, PID, kidney stone, placenta abruption, this is not meant to be an all-inclusive list EKG interpreted by me (3pts min.). @ -Yes and demonstrates sinus rhythm with rate of 67. ME interval 193. QRS 87. QTc of 288. No acute ST segment elevations or depressions X-rays interpreted by me (1pt min.). @ -None done CT interpreted by me (1pt min.). @ -Yes and demonstrates a flank hematoma U/S interpreted by me (1pt. min.). @ -None done What testing was considered but not performed or refused? (CT, X-rays, U/S, labs)? Why? @ -CT with contrast was considered however patient has poor kidney function What meds were considered but not given or refused? Why? @ -None Did you discuss the management of the patient with other professionals (professionals i.e. , PA, COMBUSTION ENGINEER, lab, RT, psych nurse, social worker school, sterilization technician, teacher, credit risk review officer, foster care case manager)? Give summary @ -Spoke with dr weeks for admission Was smoking cessation discussed for >3mins.? @ -No Was critical care preformed (if so, how long)? @ -No Were there social determinants of health that impacted care today? How? (Homelessness, low income, unemployed, alcoholism, drug addiction, trans portation, low edu. Level, literacy, decrease access to med. care, correction, rehab)? @ -No Was there de-escalation of care discussed even if they declined (Discuss DNR or withdrawal of care, Hospice)? DNR status @ -No What co-morbidities impacted this encounter? (DM, HTN, Smoking, COPD, CAD, Cancer, CVA, ARF, Chemo, Hep., AIDS, mental health diagnosis, sleep apnea, morbid obesity)? @ -None Was patient admitted / discharged? Hospital course, mention meds given and route, prescriptions, significant lab abnormalities, going to OR and other pertinent info. @ -Upon arrival patient seen and evaluated in room 24. Thorough history and physical exam was performed. IV access was established. Laboratory studies were conducted. Patient is given IV fluids and replacement potassium. CT was performed as patient was here with same complaints and is getting worse. CT does not demonstrate any intra-abdominal process however this is done without contrast as patient has kidney failure at this time. Due to the kidney failure I did recommend admission. Patient was agreeable. Spoke with Dr. Weeks for the admission Undiagnosed new problem with uncertain prognosis? @ -No Drug Therapy requiring intensive monitoring for toxicity (Heparin, Nitro, Insulin, Cardizem)? @ -No Were any procedures done? @ -No Diagnosis/symptom? @ -Acute abdominal pain, acute nausea vomiting, acute kidney injury, acute hypokalemia Acute, or Chronic, or Acute on Chronic? @ -acute Uncomplicated (without systemic symptoms) or Complicated (systemic symptoms)? @ -Complicated Side effects of treatment? @ -No Exacerbation, Progression, or Severe Exacerbation? @ -No Poses a threat to life or bodily function? How? (Chest pain, [place], [place], pneumonia, PE, COPD, DKA, ARF, appy, cholecystitis, CVA, Diverticulitis, Homicidal, Suicidal, threat to staff... and all critical care pts) @ -No - Lab Data Result diagrams: 08/06/24 06:45 08/07/24 10:26 Lab Results 07/30/24 07/30/24 07/30/24 Range/Units 04:00 04:00 04:00 WBC (3.8-10.6) k/uL RBC (3.80-5.40) m/uL Hgb (11.4-16.0) gm/dL Hct (34.0-46.0) % MCV (80.0-100.0) fL MCH (25.0-35.0) pg MCHC (31.0-37.0) g/dL RDW (11.5-15.5) % Plt Count (150-450) k/uL MPV Neutrophils % % Lymphocytes % % Monocytes % % Eosinophils % % Basophils % % Neutrophils # (1.3-7.7) k/uL Lymphocytes # (1.0-4.8) k/uL Monocytes # (0-1.0) k/uL Eosinophils # (0-0.7) k/uL Basophils # (0-0.2) k/uL Hypochromasia Sodium 136 L (137-145) mmol/L Potassium 2.9 L (3.5-5.1) mmol/L Chloride 104 (98-107) mmol/L Carbon Dioxide 25 (22-30) mmol/L Anion Gap 7 mmol/L BUN 28 H (7-17) mg/dL Creatinine 2.63 H (0.52-1.04) mg/dL Est GFR (CKD-EPI)AfAm 20 (>60 ml/min/1.73 sqM) Est GFR (CKD-EPI)NonAf 18 (>60 ml/min/1.73 sqM) Glucose 185 H (74-99) mg/dL Plasma Lactic Acid Emiliano 1.2 (0.7-2.0) mmol/L Calcium 8.3 L (8.4-10.2) mg/dL Magnesium 1.6 (1.6-2.3) mg/dL Total Bilirubin 0.4 (0.2-1.3) mg/dL AST 26 (14-36) U/L ALT 25 (4-34) U/L Alkaline Phosphatase 136 H (38-126) U/L Total Protein 5.5 L (6.3-8.2) g/dL Albumin 2.9 L (3.5-5.0) g/dL Lipase 100 (23-300) U/L Urine Color Urine Appearance (Clear) Urine pH (5.0-8.0) Ur Specific [place] (1.001-1.035) Urine Protein (Negative) Urine Glucose (UA) (Negative) Urine Ketones (Negative) Urine Blood (Negative) Urine Nitrite (Negative) Urine Bilirubin (Negative) Urine Urobilinogen (<2.0) mg/dL Ur Leukocyte Esterase (Negative) Urine RBC (0-5) /hpf Urine WBC (0-5) /hpf Ur Squamous Epith Cells (0-4) /hpf Urine Bacteria (None) /hpf Urine Mucus (None) /hpf SARS-CoV-2 (PCR) (Not Detectd) 07/30/24 07/30/24 07/30/24 Range/Units 04:22 04:29 06:59 WBC 12.2 H (3.8-10.6) k/uL RBC 3.60 L (3.80-5.40) m/uL Hgb 9.4 L (11.4-16.0) gm/dL Hct 29.6 L (34.0-46.0) % MCV 82.4 (80.0-100.0) fL MCH 26.1 (25.0-35.0) pg MCHC 31.7 (31.0-37.0) g/dL RDW 15.7 H (11.5-15.5) % Plt Count 434 (150-450) k/uL MPV 8.0 Neutrophils % 79 % Lymphocytes % 14 % Monocytes % 6 % Eosinophils % 0 % Basophils % 0 % Neutrophils # 9.6 H (1.3-7.7) k/uL Lymphocytes # 1.6 (1.0-4.8) k/uL Monocytes # 0.7 (0-1.0) k/uL Eosinophils # 0.0 (0-0.7) k/uL Basophils # 0.0 (0-0.2) k/uL Hypochromasia Slight Sodium (137-145) mmol/L Potassium (3.5-5.1) mmol/L Chloride (98-107) mmol/L Carbon Dioxide (22-30) mmol/L Anion Gap mmol/L BUN (7-17) mg/dL Creatinine (0.52-1.04) mg/dL Est GFR (CKD-EPI)AfAm (>60 ml/min/1.73 sqM) Est GFR (CKD-EPI)NonAf (>60 ml/min/1.73 sqM) Glucose (74-99) mg/dL Plasma Lactic Acid Emiliano (0.7-2.0) mmol/L Calcium (8.4-10.2) mg/dL Magnesium (1.6-2.3) mg/dL Total Bilirubin (0.2-1.3) mg/dL AST (14-36) U/L ALT (4-34) U/L Alkaline Phosphatase (38-126) U/L Total Protein (6.3-8.2) g/dL Albumin (3.5-5.0) g/dL Lipase (23-300) U/L Urine Color Light Yellow Urine Appearance Cloudy H (Clear) Urine pH 5.5 (5.0-8.0) Ur Specific [place] 1.014 (1.001-1.035) Urine Protein Trace H (Negative) Urine Glucose (UA) Negative (Negative) Urine Ketones Negative (Negative) Urine Blood Negative (Negative) Urine Nitrite Negative (Negative) Urine Bilirubin Negative (Negative) Urine Urobilinogen <2.0 (<2.0) mg/dL Ur Leukocyte Esterase Negative (Negative) Urine RBC 1 (0-5) /hpf Urine WBC 5 (0-5) /hpf Ur Squamous Epith Cells 5 H (0-4) /hpf Urine Bacteria Rare H (None) /hpf Urine Mucus Rare H (None) /hpf SARS-CoV-2 (PCR) Not Detected (Not Detectd) Disposition Clinical Impression: Nausea and vomiting, SABIHA (acute kidney injury), Hypokalemia, Abdominal pain Disposition: ADMITTED IP TO THIS HOSP Condition: Stable Is patient prescribed a controlled substance at d/c from ED?: No Time of Disposition: 08:18 Decision to Admit Reason: Admit from EC Decision Date: 07/30/24 Decision Time: 08:18
[2024-07-30] MEDS: METOCLOPRAMIDE 5 MG/ML 2 ML VIAL IVP STA (04:03)
[2024-07-30] MEDS: diphenhydrAMINE 50 MG/ML 1 ML VIAL IVP STA (04:05)
[2024-07-30] MEDS: MORPHINE SULFATE 4 MG/ML SYRINGE IVP STA ×2 (04:05→08:44)
[2024-07-30] MEDS: PANTOPRAZOLE 40 MG/10 ML VIAL IVP STA (04:06)
[2024-07-30] MEDS: SODIUM CHLORIDE 0.9% 1,000 ML IV STA (04:13)
[2024-07-30 04:44] LABS: Basophils % (A) 0 %; Eosinophils % (A) 0 %; HCT 29.6 % (34.0-46.0); HGB 9.4 gm/dL (11.4-16.0); Hypochromasia Slight; Lymphocytes # (A) 1.6 k/uL (1.0-4.8); Lymphocytes % (A) 14 %; MCH 26.1 pg (25.0-35.0); MCHC 31.7 g/dL (31.0-37.0); MCV 82.4 fL (80.0-100.0); Monocytes # (A) 0.7 k/uL (0-1.0); Monocytes % (A) 6 %; Neutrophils # (A) 9.6 k/uL (1.3-7.7); Neutrophils % (A) 79 %; Platelet Count 434 k/uL (150-450); RDW 15.7 % (11.5-15.5); WBC 12.2 k/uL (3.8-10.6)
[2024-07-30 05:10] LABS: ALT 25 U/L (4-34); AST 26 U/L (14-36); African American GFR (CKD) 20 (>60 ml/min/1.73 sqM); Albumin 2.9 g/dL (3.5-5.0); Alkaline Phosphatase 136 U/L (38-126); Anion Gap 7 mmol/L; Blood Urea Nitrogen 28 mg/dL (7-17); Calcium 8.3 mg/dL (8.4-10.2); Carbon Dioxide 25 mmol/L (22-30); Chloride 104 mmol/L (98-107); Glucose 185 mg/dL (74-99); Lipase 100 U/L (23-300); Non-African American GFR(CKD) 18 (>60 ml/min/1.73 sqM); Potassium 2.9 mmol/L (3.5-5.1); Sodium 136 mmol/L (137-145); Total Bilirubin 0.4 mg/dL (0.2-1.3); Total Protein 5.5 g/dL (6.3-8.2)
[2024-07-30 07:45] LABS: Appearance,Urine Cloudy (Clear); Bacteria,Urine Rare /hpf; Bilirubin,Urine Negative (Negative); Blood,Urine Negative (Negative); Color,Urine Light Yellow; Glucose,Urine (UA) Negative (Negative); Ketones,Urine Negative (Negative); Leukocyte Esterase,Urine Negative (Negative); Mucus,Urine Rare /hpf; Nitrite,Urine Negative (Negative); PH, Urine 5.5 (5.0-8.0); Protein,Urine Trace (Negative); RBC,Urine 1 /hpf (0-5); Specific Gravity,Urine 1.014 (1.001-1.035); Squamous Epithelial Cell,Urine 5 /hpf (0-4); Urobilinogen,Urine <2.0 mg/dL (<2.0); WBC,Urine 5 /hpf (0-5)
--- NOTE | 2024-07-30 07:55 | CT ---
EXAMINATION TYPE: CT abdomen pelvis wo con DATE OF EXAM: 07/30/2024 COMPARISON: None INDICATION: Abdominal pain, nausea and vomiting DLP: 1461.4 mGycm, Automated exposure control for dose reduction was used. CONTRAST: 0 mL of Isovue 300. Study performed without Oral Contrast TECHNIQUE: Axial images were obtained from above the diaphragm to the pubic rami in the axial plane a t 5 mm thick sections. Reconstructed images are reviewed on the computer in the coronal plane. FINDINGS: Limited CT sections are obtained the lung bases. The lung bases are clear. CT ABDOMEN: Beam hardening artifact artifact from lumbar spine fixation is present in some limitation . Liver: There is moderately intense fatty infiltration of the liver. Some mild peripheral scarring may be present near the inferior borders. Hepatomegaly is present measuring 21.9 cm in craniocaudal dim ension. Spleen: Normal Pancreas: Normal Adrenal glands: The adrenal glands are normal. Gallbladder: Normal Kidneys: No masses are evident. No hydronephrosis is present. No cysts are present. Delayed images were obtained through the kidneys, which remain unremarkable. Aorta: Vascular calcification is within the aorta. Inferior vena cava: Normal. CT PELVIS: Subcutaneous collection in the left flank is present measuring 2.2 x 4.5 cm. Series 201 an d 48. Consider hematoma among other etiologies. Loops of bowel within the abdomen and pelvis are normal. This study is without oral contrast limi ting evaluation. Postsurgical changes are within the sigmoid colon. Appendix: Normal as visualized. Urinary bladder: Normal. Genitourinary structures: Uterus and ovaries are not identified. Osseous structures: No suspicious lytic or sclerotic lesions. IMPRESSION: 1. Marked fatty infiltration through the enlarged liver. 2. No suspicious changes suggest bowel abnormality. 3. Left flank subcutaneous collection. Consider hematoma within the differential. [facility], Workstation: [facility], 07/30/2024 7:53 AM
[2024-07-30] MEDS ORDERED: NALOXONE 0.4 MG/ML 1 ML VIAL IV PRN (08:18)
[2024-07-30] MEDS ORDERED: ONDANSETRON 4 MG/2 ML VIAL IVP PRN (08:18)
[2024-07-30] MEDS ORDERED: MORPHINE SULFATE 4 MG/ML SYRINGE IV PRN (08:18)
[2024-07-30] MEDS: SODIUM CHLORIDE 0.9% 1,000 ML IV SCH (08:38)
[2024-07-30] MEDS: PANTOPRAZOLE 40 MG/10 ML VIAL IV SCH (08:39)
[2024-07-30] MEDS: ONDANSETRON 4 MG/2 ML VIAL IVP STA (08:41)
[2024-07-30] MEDS: MAGNESIUM SULFATE-D5W PMX 1 GM in DEXTROSE/WATER 1 100ML.BAG IVPB ONE (08:46)
[2024-07-30] MEDS: POTASSIUM CHLORIDE ER 20 MEQ TAB.ER PO STA (08:46)
[2024-07-30] MEDS: POTASSIUM CHLORIDE 20 MEQ in WATER FOR INJECTION 1 100ML.BAG IVPB STA (09:40)
[2024-07-30] MEDS ORDERED: HYDROmorphone 0.5 MG/0.5 ML SYRINGE IVP PRN (14:52)
--- NOTE | 2024-07-30 15:45 | XR ---
EXAMINATION TYPE: XR chest 1V portable DATE OF EXAM: 07/30/2024 3:33 PM CLINICAL INDICATION: Female, 73 years old with history of chf; COMPARISON: Chest radiographs from none TECHNIQUE: XR chest 1V portable Frontal view of the chest. FINDINGS: Lungs/Pleura: There is no evidence of pleural effusion, focal consolidation, or pneumothorax. Pulmonary vascularity: Unremarkable. Heart/mediastinum: Cardiomediastinal silhouette is enlarged. Musculoskeletal: No acute osseous pathology. Right rotator cuff anchor noted. IMPRESSION: Low lung volumes with a generalized hazy appearance which could represent atelectasis versus pulmonar y edema correlate with serum BNP. [facility], , 07/30/2024 3:43 PM
[2024-07-30 16:17] LABS: C Reactive Protein 5.5 mg/dL (<1.0); Digoxin 2.1 ng/mL
[2024-07-30] MEDS: SUCRALFATE 1 GM TAB PO SCH (18:01)
[2024-07-30] MEDS: hydrALAZINE HCL 50 MG TAB PO SCH (20:48)
[2024-07-30] MEDS: carvediloL 12.5 MG TAB PO SCH (20:48)
[2024-07-30] MEDS: metFORMIN 500 MG TAB PO SCH (20:49)
[2024-07-30] MEDS: POTASSIUM CHLORIDE ER 20 MEQ TAB.ER PO SCH (20:50)
[2024-07-30] MEDS: PANTOPRAZOLE 40 MG/10 ML VIAL IVP SCH (20:50)
[2024-07-30] MEDS: DOFETILIDE 500 MCG CAP PO SCH (20:55)
[2024-07-30] MEDS: METOPROLOL TARTRATE 50 MG TAB PO SCH (22:01)
--- NOTE | 2024-07-31 02:10 | HP ---
HISTORY AND PHYSICAL CHIEF COMPLAINT: Nausea, vomiting, diarrhea, and abdominal pain. HISTORY OF PRESENT ILLNESS: This 73-year-old woman with a past medical history of multiple medical problems including atrial fibrillation, was complaining of nausea, vomiting, diarrhea, and some left-sided abdominal pain. The patient apparently came to the ER previously with workup with Zofran. With lack of improvement, the patient came back again. The patient also reports multiple members of family also becoming sick with multiple symptomatology. The CT scan showed no acute abnormality, but left flank subcutaneous collection of hematoma suspected. There is no history of fever, rigors, or chills. PAST MEDICAL HISTORY: History of atrial fibrillation with ablation, cholecystectomy. Rest of the history and chart were also reviewed. HOME MEDICATIONS: Reviewed include Nexium. Dose and rest of medications reviewed. ALLERGIES: Cephalexin. FAMILY HISTORY: No history of heart disease or strokes in the family. SOCIAL HISTORY: No history of smoking. REVIEW OF SYSTEMS: Fourteen-point review of systems negative except as mentioned earlier. PHYSICAL EXAMINATION: VITAL SIGNS: Pulse is 78, blood pressure ntd, respirations 18. HEENT: Conjunctivae normal. NECK: No jugular venous distention. CARDIOVASCULAR: S1, S2. RESPIRATIONS: Breath sounds diminished at the bases. ABDOMEN: Soft, obese, nontender. No mass palpable. EXTREMITIES: Legs, no edema, no swelling. NERVOUS SYSTEM: No focal deficits. SKIN: n. LABORATORY DATA: Reviewed. WBC 12.2, hemoglobin 9.4. Potassium 2.9. ASSESSMENT: 1. Nausea, vomiting, diarrhea, possible acute gastroenteritis. 2. Acute on chronic renal failure. 3. Severe hypokalemia. 4. Atrial fibrillation. 5. Hypertension. 6. Multiple complex medical issues. RECOMMENDATIONS AND DISCUSSION: This 73-year-old woman presented with multiple complex medical issues, we will monitor the patient closely. I recommend baseline chest x-ray. Cautious IV hydration. Avoid nephrotoxic medications and Cardiology, Nephrology consultations. Evaluation of the stool including C diff, symptomatic treatment. Prognosis extremely guarded because of multiple complex medical issues. Further recommendations to follow. I would recommend a stool for C diff also. See orders for details. MMODL / IJN: [id number] / MTDD
[2024-07-31] MEDS: RIVAROXABAN 15 MG TAB PO SCH (07:58)
[2024-07-31] MEDS: LOSARTAN 50 MG TAB PO SCH ×2 (07:58→10:18)
[2024-07-31] MEDS: ATORVASTATIN 20 MG TAB PO SCH (07:58)
[2024-07-31] MEDS: DIGOXIN 125 MCG TAB PO SCH (07:58)
[2024-07-31] MEDS: MULTIVITAMINS, THERA 1 EACH TAB PO SCH (07:58)
[2024-07-31] MEDS: DILTIAZEM CD 180 MG CAP.ER.24H PO SCH (07:58)
[2024-07-31 08:41] LABS: Basophils # (A) 0.05 X 10*3/uL (0.00-0.10); Basophils % (A) 0.4 %; Eosinophils # (A) 0.12 X 10*3/uL (0.04-0.35); Eosinophils % (A) 0.9 %; HCT 32.7 % (37.2-46.3); HGB 9.9 g/dL (12.0-15.0); Lymphocytes # (A) 3.22 X 10*3/uL (0.90-5.00); Lymphocytes % (A) 23.8 %; MCH 25.8 pg (27.0-32.0); MCHC 30.3 g/dL (32.0-37.0); MCV 85.2 FL (80.0-97.0); Mean Platelet Volume 10.3 FL (9.5-12.2); Monocytes # (A) 0.93 X 10*3/uL (0.20-1.00); Monocytes % (A) 6.9 %; NRBC Per 100 WBC 0 X 10*3/uL (0.00-0.01); Neutrophils # (A) 9.12 X 10*3/uL (1.80-7.70); Neutrophils % (A) 67.4 %; Platelet Count 474 X 10*3/uL (140-440); RBC 3.84 X 10*6/uL (4.10-5.20); RDW 15.7 % (11.5-14.5); WBC 13.52 X 10*3/uL (4.50-10.00)
[2024-07-31 08:56] LABS: BUN/Creat Ratio 9.18 Ratio (12.00-20.00); Blood Urea Nitrogen 20.2 mg/dL (9.0-27.0); Calcium 8.2 mg/dL (8.7-10.3); Chloride 107 mmol/L (96-109); Glucose 155 mg/dL (70-110); Potassium 4.1 mmol/L (3.5-5.5); Sodium 141 mmol/L (135-145)
[2024-07-31] MEDS: HYDROcodone/APAP 5-325MG 1 EACH TAB PO PRN (09:40)
[2024-07-31] MEDS: carvediloL 12.5 MG TAB PO SCH (10:19)
[2024-07-31] MEDS: carvediloL 12.5 MG TAB PO STA (10:37)
--- NOTE | 2024-07-31 10:38 | P.CRDCN ---
History of Present Illness History of present illness: HISTORY OF PRESENT ILLNESS: This is a 73-year-old female with a past medical history significant for paroxysmal atrial fibrillation, recent A-fib ablation, hypertension, and bowel obstruction with previous bowel resection. Patient follows with a skip pit worker and dairy department manager at [facility]. We have been asked to see the patient in consultation for atrial fibrillation. Patient examined at the bedside. Patient states she initially came to the ER on 07/27/2024 due to generalized weakness, and diarrhea. She states she was given IV fluids and discharged home. She states that over the next couple days her symptoms worsened. She reports continued nausea, vomiting, and diarrhea. This prompted her to come back to the hospital for further evaluation. The patient currently denies any chest pain or pressure. She denies any shortness of breath. She is maintaining sinus m echanism at the time of examination. She reports that she underwent A-fib ablation on July 20, 2024 at [facility]. She states that she was initially diagnosed with A-fib about 5 or 6 years ago. She states that sometimes she does not have palpitations and is unsure when she is actually in atrial fibrillation. She denies having a recent stress test or echocardiogram. 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 Patient states that she was scheduled to see a GI physician tomorrow secondary to her ongoing symptoms. She does report having a colonoscopy a few months ago and an endoscopy last year. Patient was found to have acute kidney injury on admission with creatinine of 2.63. Repeat today is 2.2. DIAGNOSTICS: - EKG reveals sinus mechanism with nonspecific ST-T wave changes. No signs of acute ischemia. - Chest xray low lung volumes with generalized hazy appearance which could represent atelectasis versus pulmonary edema - Laboratory data: WBC 13.52. Hemoglobin 9.9. Platelet count 474. Sodium 141. Potassium 4.1. BUN 20. Creatinine 2.2. - Current home cardiac medications include digoxin 125 mcg daily, losartan 150 mg daily, metoprolol tartrate 100 mg twice a day, Xarelto 20 mg daily REVIEW OF SYSTEMS: At the time of my exam: CONSTITUTIONAL: Denies fever or chills. HEENT: Denies blurred vision, vision changes, or eye pain. Denies hemoptysis CARDIOVASCULAR: Denies chest pain. Denies orthopnea. Denies PND. Denies palpitations RESPIRATORY: Denies shortness of breath. GASTROINTESTINAL: Denies abdominal pain. Denies nausea or vomiting. HEMATOLOGIC: Denies bleeding disorders. GENITOURINARY: Denies any blood in urine. SKIN: Denies pruitis. Denies rash. PHYSICAL EXAM: VITAL SIGNS: Reviewed. GENERAL: Well-developed in no acute distress. HEENT: Head is normocephalic. Pupils are equal, round. Sclerae anicteric. Mucous membranes of the mouth are moist. Neck supple. No JVD or thyromegaly LUNGS: Respirations even and unlabored. Lungs essentially clear to auscultation bilaterally. HEART: Regular rate and rhythm. S1 and S2 heard. ABDOMEN: Soft. Nondistended. Nontender. EXTREMITIES: Normal range of motion. No clubbing or cyanosis. Peripheral pulses intact. No lower extremity edema NEUROLOGIC: Awake and alert. Oriented x 3. ASSESSMENT: Nausea, Vomiting, diarrhea, x 2 weeks, etiology unclear Paroxysmal atrial fibrillation Recent A-fib ablation, 07/20/2024 at [facility] Acute kidney injury Hypertension History of bowel obstruction with previous bowel resection Obesity: BMI 41.8 PLAN: Patient states she has not had a recent echocardiogram performed. We will obtain 2D echo to assess cardiac structure and function Discontinue metoprolol. Continue carvedilol. Increase dosage to 25 mg twice a day Decrease losartan to 100 mg daily Discontinue digoxin Continue to monitor kidney function. Patient's kidney function is improving this morning. However if patient's kidney function remains abnormal, will need to decrease dose of dofetilide. Continue anticoagulation with Xarelto Obtain records from [facility] Further recommendations pending patient course Nurse practitioner note has been reviewed by physician. Signing provider agrees with the documented findings, assessment, and plan of care documented by CABLE TOWER OPERATOR as a scribe. Past Medical History Past Medical History: Atrial Fibrillation, Hypertension History of Any Multi-Drug Resistant Organisms: None Reported Past Surgical History: Ablation, Back Surgery, Cholecystectomy, Hysterectomy, Joint Replacement, Orthopedic Surgery Past Psychological History: No Psychological Hx Reported Smoking Status: Never smoker Past Alcohol Use History: Occasional Past Drug Use History: None Reported Medications and Allergies Home Medications Medication Instructions Recorded Confirmed Type Atorvastatin [Lipitor] 20 mg PO DAILY 07/30/24 07/30/24 History Calcium Carbonate/Vitamin D3 1 tab PO DAILY 07/30/24 07/30/24 History [Calcium 600 mg-Vit D3 5 mcg (200 unit)] Cetirizine HCl [Zyrtec] 10 mg PO DAILY 07/30/24 07/30/24 History Digoxin [Digitek] 125 mcg PO DAILY 07/30/24 07/30/24 History Dofetilide [Tikosyn] 500 mcg PO BID 07/30/24 07/30/24 History Esomeprazole Magnesium [NexIUM] 40 mg PO BID 07/30/24 07/30/24 History Furosemide [Lasix] 40 mg PO DAILY 07/30/24 07/30/24 History Losartan Potassium [Cozaar] 150 mg PO DAILY 07/30/24 07/30/24 History Metoprolol Tartrate [Lopressor] 100 mg PO BID 07/30/24 07/30/24 History Multivitamins, Thera [Multivitamin 1 tab PO DAILY 07/30/24 07/30/24 History (formulary)] Potassium Chloride ER [K-Dur 20] 20 meq PO BID 07/30/24 07/30/24 History Rivaroxaban [Xarelto] 20 mg PO DAILY 07/30/24 07/30/24 History Sucralfate [Carafate] 1 gm PO QID 07/30/24 07/30/24 History carvediloL [Coreg] 12.5 mg PO BID 07/30/24 07/30/24 History dilTIAZem HCL [Tiazac] 360 mg PO DAILY 07/30/24 07/30/24 History hydrALAZINE HCL [Apresoline] 50 mg PO BID 07/30/24 07/30/24 History metFORMIN HCL [Glucophage] 500 mg PO BID 07/30/24 07/30/24 History Allergies Allergy/AdvReac Type Severity Reaction Status Date / Time cephalexin [From Keflex] Allergy Itching Verified 07/30/24 10:15 citric acid Allergy Rash/Hives Verified 07/31/24 08:09 Physical Exam Vitals: Vital Signs Temp Pulse Pulse Resp BP BP Pulse Ox 07/31/24 00:20 98.4 F 75 17 150/72 94 L 07/30/24 19:01 97.9 F 77 18 155/70 97 07/30/24 17:30 98 F 73 18 158/81 97 07/30/24 16:41 80 18 128/68 98 07/30/24 12:54 78 18 133/61 98 Intake and Output 07/30/24 07/31/24 07/31/24 22:59 06:59 14:59 Intake Total 1680 Balance 1680 Intake: Intake, IV Titration 1560 Amount Sodium Chloride 0.9% 1, 1560 000 ml @ 130 mls/hr IV . Q7H42M MARIE Rx#:[id number] Oral 120 Other: # Voids 3 # Bowel Movements 1 Results 07/31/24 05:44 07/31/24 05:44 Current Medications Generic Name Dose Route Start Last Admin Trade Name Freq PRN Reason Stop Dose Admin Hydrocodone Bitart/Acetaminophen 1 each 07/30/24 14:52 Hydrocodone/Apap 5-325mg 1 Each Tab PO Q6HR PRN Pain Atorvastatin Calcium 20 mg 07/31/24 09:00 07/31/24 07:58 Atorvastatin 20 Mg Tab PO 20 mg DAILY MARIE Administration Carvedilol 12.5 mg 07/30/24 21:00 07/31/24 07:57 Carvedilol 12.5 Mg Tab PO 12.5 mg BID MARIE Administration Digoxin 125 mcg 07/31/24 09:00 07/31/24 07:58 Digoxin 125 Mcg Tab PO 125 mcg DAILY MARIE Administration Diltiazem HCl 360 mg 07/31/24 09:00 07/31/24 07:58 Diltiazem Cd 180 Mg Cap.Er.24h PO 360 mg DAILY MARIE Administration Dofetilide 500 mcg 07/30/24 21:00 07/31/24 07:57 Dofetilide 500 Mcg Cap PO 500 mcg BID MARIE Administration Hydralazine HCl 50 mg 07/30/24 21:00 07/31/24 07:57 Hydralazine Hcl 50 Mg Tab PO 50 mg BID MARIE Administration Hydromorphone HCl 0.5 mg 07/30/24 14:52 Hydromorphone 0.5 Mg/0.5 Ml Syringe IVP Q4HR PRN Severe Pain (Scale 7 to 10) Sodium Chloride 1,000 mls @ 130 mls/hr 07/30/24 08:30 07/31/24 07:57 Saline 0.9% IV 130 mls/hr .Q7H42M MARIE Administration Losartan Potassium 150 mg 10/07/24 09:00 07/31/24 07:58 Losartan 50 Mg Tab PO 150 mg DAILY MARIE Administration Metformin HCl 500 mg 07/30/24 21:00 07/31/24 07:57 Metformin 500 Mg Tab PO 500 mg BID MARIE Administration Metoprolol Tartrate 100 mg 07/30/24 21:00 07/30/24 22:01 Metoprolol Tartrate 50 Mg Tab PO Not Given BID MARIE Multivitamins 1 each 07/31/24 09:00 07/31/24 07:58 Multivitamins, Thera 1 Each Tab PO 1 each DAILY MARIE Administration Naloxone HCl 0.2 mg 07/30/24 08:18 Naloxone 0.4 Mg/Ml 1 Ml Vial IV Q2M PRN Opioid Reversal Ondansetron HCl 4 mg 07/30/24 08:18 Ondansetron 4 Mg/2 Ml Vial IVP Q8HR PRN Nausea And Vomiting Pantoprazole Sodium 40 mg 07/30/24 21:00 07/31/24 07:57 Pantoprazole 40 Mg/10 Ml Vial IVP 40 mg BID MARIE Administration Potassium Chloride 20 meq 07/30/24 21:00 07/31/24 07:58 Potassium Chloride Er 20 Meq Tab.Er PO 20 meq BID MARIE Administration Rivaroxaban 15 mg 07/31/24 09:00 07/31/24 07:58 Rivaroxaban 15 Mg Tab PO 15 mg DAILY MARIE Administration Protocol Sucralfate 1 gm 07/30/24 18:00 07/31/24 07:57 Sucralfate 1 Gm Tab PO 1 gm QID MARIE Administration Intake and Output 07/30/24 07/31/24 07/31/24 22:59 06:59 14:59 Intake Total 1680 Balance 1680 Intake: Intake, IV Titration 1560 Amount Sodium Chloride 0.9% 1, 1560 000 ml @ 130 mls/hr IV . Q7H42M [facility] Rx#:[id number] Oral 120 Other: # Voids 3 # Bowel Movements 1 07/30/24 04:29 07/30/24 04:00
[2024-07-31 12:47] LABS: Cryptosporidium Antigen Negative (Negative)
[2024-07-31 13:29] VITALS: BMI 41.8
[2024-07-31] MEDS: CHOLESTYRAMINE (WITH SUGAR) 4 GM PACKET PO SCH (14:03)
[2024-07-31] MEDS: HYDROCORTISONE 2.5% RECTAL CREAM 30 GM TUBE RECTAL SCH (14:44)
[2024-07-31] MEDS: LEVOFLOXACIN 500MG-D5W PMX 500 MG in DEXTROSE/WATER 1 100ML.BAG IVPB SCH (15:04)
[2024-07-31] MEDS: LOPERAMIDE 2 MG CAP PO STA (15:18)
[2024-07-31] MEDS: metroNIDAZOLE-NS PMX 500 MG in SALINE 1 100ML.BAG IVPB SCH (16:58)
--- NOTE | 2024-07-31 17:50 | CA ---
Transthoracic Echo Report Name: Zayra Casiano Age: 73 Gender: F : 1950 Exam Date: 07/31/2024 14:08 Exam Location: [place] [facility] Ht (in): 68 Wt (lb): 275 Ordering Physician: Savita Domínguez Attending/Referring Phys: [id number], Catrachita Order Checker Packer Processer Krissy Steinberg RDCS Procedure CPT: Indications: LV function, hx of AF, recent ablation Cardiac Hx: Technical Quality: Good Contrast 1: Total Dose (mL): Contrast 2: Total Dose (mL): MEASUREMENTS (Male / Female) Normal Values 2D ECHO LV Diastolic Diameter PLAX 4.3 cm 4.2 - 5.9 / 3.9 - 5.3 cm LV Systolic Diameter PLAX 2.9 cm IVS Diastolic Thickness 1.4 cm 0.6 - 1.0 / 0.6 - 0.9 cm LVPW Diastolic Thickness 1.3 cm 0.6 - 1.0 / 0.6 - 0.9 cm LV Relative Wall Thickness 0.6 RV Internal Dim ED PLAX 3.6 cm LA Systolic Diameter LX 4.5 cm 3.0 - 4.0 / 2.7 - 3.8 cm LV Diastolic Volume MOD 4C 157.6 cm??? LV Systolic Volume MOD 4C 62.8 cm??? LV Ejection Fraction MOD 4C 60.2 % LV Cardiac Index MOD 4C 2610.7 cm???/min???m??? LV Diastolic Length 4C 8.1 cm LV Systolic Length 4C 6.4 cm LV Diastolic Volume MOD 2C 74.3 cm??? LV Systolic Volume MOD 2C 28.6 cm??? LV Ejection Fraction MOD 2C 61.5 % LV Cardiac Index MOD 2C 1256.7 cm???/min???m??? LV Diastolic Length 2C 7.5 cm LV Systolic Length 2C 6.0 cm LA Volume 105.2 cm??? 18 - 58 / 22 - 52 cm??? LA Volume Index 42.0 cm???/m??? 16 - 28 cm???/m??? M-MODE Aortic Root Diameter MM 3.4 cm AV Cusp Separation MM 2.3 cm DOPPLER AV Peak Velocity 205.2 cm/s AV Peak Gradient 16.8 mmHg MV Area PHT 2.8 cm??? Mitral E Point Velocity 123.0 cm/s Mitral A Point Velocity 96.0 cm/s Mitral E to A Ratio 1.3 MV Deceleration Time 266.6 ms TR Peak Velocity 283.3 cm/s TR Peak Gradient 32.1 mmHg Right Ventricular Systolic Press 36.0 mmHg FINDINGS Left Ventricle Left ventricular ejection fraction is estimated at 55-60 %. Left ventricular cavity size normal. Normal left ventricular systolic function with no obvious regional wall motion abnormalities. Mildly increased left ventricular wall thickness. Right Ventricle Mild right ventricular dilatation. Mild pulmonary hypertension. Right Atrium Normal right atrial size. No right atrial thrombus or mass seen. Left Atrium Moderately increased left atrial diameter. Severely increased left atrial volume. Moderately increased left atrial area. No left atrial thrombus or mass present. Mitral Valve Structurally normal mitral valve. No mitral stenosis, regurgitation or prolapse.mitral annular calcification. Aortic Valve Trileaflet aortic valve. No aortic valve stenosis or regurgitation. Tricuspid Valve Structurally normal tricuspid valve. Mild tricuspid regurgitation. Pulmonic Valve Structurally normal pulmonic valve. Trace pulmonic regurgitation. Pericardium No pericardial or pleural effusion. Aorta Normal size aortic root and proximal ascending aorta. CONCLUSIONS 1. Normal left ventricular size and systolic function 2. Mild tricuspid regurgitation with mild pulmonary hypertension Previewed by: Dr. Tamara Krause MD (Electronically Signed) Final Date: 31 July 2024 17:49
--- NOTE | 2024-07-31 23:34 | PN ---
PROGRESS NOTE DATE OF SERVICE: 07/31/2024 SUBJECTIVE: This is a 73-year-old woman who was admitted with abdominal symptoms and complaining of continuous diarrhea, abdominal distention, and the patient is continuously dehydrated. The patient also had a suspicious lesion in the CT scan for possible hematoma. Multiple consultants are following the patient closely. PAST MEDICAL HISTORY: Reviewed. REVIEW OF SYSTEMS: Fourteen-point review is negative except as mentioned earlier. CURRENT MEDICATIONS: Reviewed. PHYSICAL EXAMINATION: VITAL SIGNS: Pulse is 82, blood pressure 152/89, respirations 16. HEENT: Conjunctivae normal. CARDIOVASCULAR: S1, S2. RESPIRATIONS: Breath sounds diminished at the bases. A few scattered rhonchi. ABDOMEN: Soft. Mild diffuse discomfort. LEGS: No edema. NERVOUS SYSTEM: Nonfocal. LABORATORY DATA: WBC 13.5, hemoglobin 9.9, ESR is 59, creatinine is 2.2. CRP is 5.5. Stool lactoferrin is positive. C diff is negative. EKG showed atrial fibrillation with controlled ventricular rate. ASSESSMENT: 1. Nausea, vomiting, diarrhea, possible infectious gastroenteritis. 2. Acute on chronic renal failure. 3. Severe hypokalemia, present on admission. 4. Atrial fibrillation, status post ablation. 5. Hypertension. 6. Multiple complex medical issues. RECOMMENDATIONS: Recommend to continue current management and continue symptomatic treatment. Continue with symptomatic treatment for the diarrhea. Obtain stool cultures. Infectious Disease evaluation. The white count is elevated. I would also recommend empiric antibiotics at this time. Guarded prognosis. Further recommendations to follow. See orders for further details. MMODL / IJN: [id number] /
--- NOTE | 2024-08-01 08:32 | P.CONS ---
History of Present Illness - Reason for Consult Consult date: 07/31/24 Acute gastroenteritis Requesting physician: Maryam Leon - Chief Complaint Nausea vomiting and diarrhea x 1 week - History of Present Illness Patient is a 73-year-old female with a past medical history significant for hypertension atrial fibrillation, presenting to the hospital for evaluation of nausea vomiting left abdominal pain and diarrhea in this patient s ymptom has been going on for more than a week previously evaluated in this ER last week and has been started home on Zofran without any improvement patient has been complaining of multiple episodes of vomiting throughout the day denies any hematemesis patient also complaining of lower abdominal pain describing it to be sharp to colicky moderate intensity without radiation and did have about 6-7 episodes of loose stools per day with some mucus in the stool but no blood denies having any high-grade fever or any chills and did not recall any recent antibiotic exposure patient on presentation to the hospital was afebrile and no fever have been called subsequently patient was not tachycardic hypotensive or hypoxic patient did have elevated white count of 12.2 which is up to 13.52 with a left shift BUN and creatinine has been mildly elevated liver enzymes are normal CRP was elevated urine has been negative stool lactoferrin was positive stool for C. difficile negative COVID testing was negative patient did have a abdominal pelvis CT fat infiltration throughout the enlarged liver no suspicious changes suggestive of an abnormality patient has been treated with Levaquin and Flagyl infectious disease was consulted for further management Review of Systems Positive point and negatives has been mentioned in the HPI, complete review of systems was performed and all other systems are negative Past Medical History Past Medical History: Atrial Fibrillation, Hypertension History of Any Multi-Drug Resistant Organisms: None Reported Past Surgical History: Ablation, Back Surgery, Cholecystectomy, Hysterectomy, Joint Replacement, Orthopedic Surgery Past Psychological History: No Psychological Hx Reported Smoking Status: Never smoker Past Alcohol Use History: Occasional Past Drug Use History: None Reported Medications and Allergies Home Medications Medication Instructions Recorded Confirmed Type Atorvastatin [Lipitor] 20 mg PO DAILY 07/30/24 07/30/24 History Calcium Carbonate/Vitamin D3 1 tab PO DAILY 07/30/24 07/30/24 History [Calcium 600 mg-Vit D3 5 mcg (200 unit)] Cetirizine HCl [Zyrtec] 10 mg PO DAILY 07/30/24 07/30/24 History Digoxin [Digitek] 125 mcg PO DAILY 07/30/24 07/30/24 History Dofetilide [Tikosyn] 500 mcg PO BID 07/30/24 07/30/24 History Esomeprazole Magnesium [NexIUM] 40 mg PO BID 07/30/24 07/30/24 History Furosemide [Lasix] 40 mg PO DAILY 07/30/24 07/30/24 History Losartan Potassium [Cozaar] 150 mg PO DAILY 07/30/24 07/30/24 History Metoprolol Tartrate [Lopressor] 100 mg PO BID 07/30/24 07/30/24 History Multivitamins, Thera [Multivitamin 1 tab PO DAILY 07/30/24 07/30/24 History (formulary)] Potassium Chloride ER [K-Dur 20] 20 meq PO BID 07/30/24 07/30/24 History Rivaroxaban [Xarelto] 20 mg PO DAILY 07/30/24 07/30/24 History Sucralfate [Carafate] 1 gm PO QID 07/30/24 07/30/24 History carvediloL [Coreg] 12.5 mg PO BID 07/30/24 07/30/24 History dilTIAZem HCL [Tiazac] 360 mg PO DAILY 07/30/24 07/30/24 History hydrALAZINE HCL [Apresoline] 50 mg PO BID 07/30/24 07/30/24 History metFORMIN HCL [Glucophage] 500 mg PO BID 07/30/24 07/30/24 History Allergies Allergy/AdvReac Type Severity Reaction Status Date / Time cephalexin [From Keflex] Allergy Itching Verified 07/30/24 10:15 Physical Exam Vitals: Vital Signs Temp Pulse Pulse Resp BP BP Pulse Ox 07/31/24 13:08 97.9 F 76 16 123/67 95 07/31/24 08:00 97.6 F 82 16 155/89 97 07/31/24 00:20 98.4 F 75 17 150/72 94 L 07/30/24 19:01 97.9 F 77 18 155/70 97 07/30/24 17:30 98 F 73 18 158/81 97 07/30/24 16:41 80 18 128/68 98 Intake and Output 07/31/24 07/31/24 07/31/24 06:59 14:59 22:59 Intake Total 1680 1120 240 Balance 1680 1120 240 Intake: Intake, IV Titration 1560 Amount Sodium Chloride 0.9% 1, 1560 000 ml @ 130 mls/hr IV . Q7H42M [facility] Rx#:[id number] Oral 120 1120 240 Other: # Voids 3 Weight 124.738 kg GENERAL DESCRIPTION: Elderly female lying in bed, no distress. No tachypnea or accessory muscle of respiration use. HEENT: Shows Pallor , no scleral icterus. Oral mucous membrane is dry. No pharyngeal erythema or thrush NECK: Trachea central, no thyromegaly. LUNGS: Unlabored breathing. Clear to auscultation anteriorly. No wheeze or crac kle. HEART: S1, S2, regular rate and rhythm. No loud murmur ABDOMEN: Soft, mild lower abdominal tenderness EXTREMITIES: No edema of feet. SKIN: No rash, no masses palpable. NEUROLOGICAL: The patient is awake, alert, oriented x3, mood and affect normal. Results CBC & Chem 7: 07/31/24 05:44 07/31/24 05:44 Labs: Abnormal Lab Results - Last 24 Hours (Table) 07/30/24 07/30/24 07/30/24 Range/Units 15:32 15:32 18:30 WBC (4.50-10.00) X 10*3/uL RBC (4.10-5.20) X 10*6/uL Hgb (12.0-15.0) g/dL Hct (37.2-46.3) % MCH (27.0-32.0) pg MCHC (32.0-37.0) g/dL RDW (11.5-14.5) % Plt Count (140-440) X 10*3/uL Immature Gran # (0.00-0.04) X 10*3/uL Neutrophils # (1.80-7.70) X 10*3/uL ESR 59 H (0-30) mm/Hr Carbon Dioxide (21.6-31.8) mmol/L Anion Gap (4.00-12.00) mmol/L Creatinine (0.6-1.5) mg/dL Est GFR (CKD-EPI) (>=60) BUN/Creatinine Ratio (12.00-20.00) Ratio Glucose (70-110) mg/dL Calcium (8.7-10.3) mg/dL C-Reactive Protein 5.5 H (<1.0) mg/dL Stool Lactoferrin Positive A (Negative) 07/31/24 07/31/24 Range/Units 05:44 05:44 WBC 13.52 H (4.50-10.00) X 10*3/uL RBC 3.84 L (4.10-5.20) X 10*6/uL Hgb 9.9 L (12.0-15.0) g/dL Hct 32.7 L (37.2-46.3) % MCH 25.8 L (27.0-32.0) pg MCHC 30.3 L (32.0-37.0) g/dL RDW 15.7 H (11.5-14.5) % Plt Count 474 H (140-440) X 10*3/uL Immature Gran # 0.08 H (0.00-0.04) X 10*3/uL Neutrophils # 9.12 H (1.80-7.70) X 10*3/uL ESR (0-30) mm/Hr Carbon Dioxide 21.0 L (21.6-31.8) mmol/L Anion Gap 13.00 H (4.00-12.00) mmol/L Creatinine 2.2 H (0.6-1.5) mg/dL Est GFR (CKD-EPI) 23 L (>=60) BUN/Creatinine Ratio 9.18 L (12.00-20.00) Ratio Glucose 155 H (70-110) mg/dL Calcium 8.2 L (8.7-10.3) mg/dL C-Reactive Protein (<1.0) mg/dL Stool Lactoferrin (Negative) Assessment and Plan (1) Leukocytosis Current Visit: Yes Status: Acute Code(s): D72.829 - ELEVATED WHITE BLOOD CELL COUNT, UNSPECIFIED SNOMED Code(s): 634352486 (2) Allergy to cephalosporin Current Visit: Yes Status: Acute Code(s): Z88.1 - ALLERGY STATUS TO OTHER ANTIBIOTIC AGENTS SNOMED Code(s): 252756012 (3) Gastroenteritis Current Visit: No Status: Acute Code(s): K52.9 - NONINFECTIVE GASTROENTERITIS AND COLITIS, UNSPECIFIED SNOMED Code(s): 53424619 Plan: 1patient presented to hospital with nausea vomiting and diarrhea that has been going on for almost a week and this patient did have elevated white count but no fever with a question of infectious versus noninfectious etiology patient did not have any antibiotic exposure and stool for C. difficile negative however stool lactoferrin came back positive. 2we will wait for the stool culture to be finalized. 3-cephalexin allergy that will limit the number of antibiotic safe to use 4continue with the Levaquin and Flagyl while waiting for the workup to be completed We will follow on clinical condition and cultures to further adjust medication if needed Thank you for this consultation we will follow the patient along with you Dictation was produced using [employer] dictation software. please excuse any grammatical, word or spelling errors. Time with Patient: Greater than 30
[2024-08-01 08:41] LABS: BUN/Creat Ratio 9.76 Ratio (12.00-20.00); Blood Urea Nitrogen 16.6 mg/dL (9.0-27.0); Carbon Dioxide 20.4 mmol/L (21.6-31.8); Chloride 111 mmol/L (96-109); Glucose 158 mg/dL (70-110); Potassium 3.6 mmol/L (3.5-5.5); Sodium 141 mmol/L (135-145)
--- NOTE | 2024-08-01 09:38 | P.NPCON ---
History of Present Illness - Reason for Consult acute renal failure - History of Present Illness Reason for consultation: Acute kidney injury History of present illness: Patient is a 73-year-old female seen in renal consultation for acute kidney injury. Patient came to the hospital due to abdominal pain as well as nausea vomiting and diarrhea going on for over a week. Patient states she initially came to the hospital and was discharged and was told to hydrate herself. Symptoms worsened and she came back to the hospital. Patient states she was having multiple episodes of vomiting as well as loose bowel movements. Diarrhea is now improved and so has vomiting. Creatinine was 2.63 on admission and is 1.7 today. Unknown baseline renal function. She denies personal history of kidney disease. She denies chest pain or shortness of breath. No gross hematuria or dysuria. She was on Lasix outpatient which is currently held. She denies use of nonsteroidals. Patient states she has prediabetes. Denies history of coronary artery disease. Denies family history of renal disease. No fever or chills. Vital signs are stable. General: No acute distress. HEENT: Head exam is unremarkable. LUNGS: No audible rhonchi or wheezes. HEART: Rate and Rhythm are regular. ABDOMEN: Nontender. EXTREMITITES: No edema. Past Medical History Past Medical History: Atrial Fibrillation, Hypertension History of Any Multi-Drug Resistant Organisms: None Reported Past Surgical History: Ablation, Back Surgery, Cholecystectomy, Hysterectomy, Joint Replacement, Orthopedic Surgery Past Psychological History: No Psychological Hx Reported Smoking Status: Never smoker Past Alcohol Use History: Occasional Past Drug Use History: None Reported Medications and Allergies Home Medications Medication Instructions Recorded Confirmed Type Atorvastatin [Lipitor] 20 mg PO DAILY 07/30/24 07/30/24 History Calcium Carbonate/Vitamin D3 1 tab PO DAILY 07/30/24 07/30/24 History [Calcium 600 mg-Vit D3 5 mcg (200 unit)] Cetirizine HCl [Zyrtec] 10 mg PO DAILY 07/30/24 07/30/24 History Digoxin [Digitek] 125 mcg PO DAILY 07/30/24 07/30/24 History Dofetilide [Tikosyn] 500 mcg PO BID 07/30/24 07/30/24 History Esomeprazole Magnesium [NexIUM] 40 mg PO BID 07/30/24 07/30/24 History Furosemide [Lasix] 40 mg PO DAILY 07/30/24 07/30/24 History Losartan Potassium [Cozaar] 150 mg PO DAILY 07/30/24 07/30/24 History Metoprolol Tartrate [Lopressor] 100 mg PO BID 07/30/24 07/30/24 History Multivitamins, Thera [Multivitamin 1 tab PO DAILY 07/30/24 07/30/24 History (formulary)] Potassium Chloride ER [K-Dur 20] 20 meq PO BID 07/30/24 07/30/24 History Rivaroxaban [Xarelto] 20 mg PO DAILY 07/30/24 07/30/24 History Sucralfate [Carafate] 1 gm PO QID 07/30/24 07/30/24 History carvediloL [Coreg] 12.5 mg PO BID 07/30/24 07/30/24 History dilTIAZem HCL [Tiazac] 360 mg PO DAILY 07/30/24 07/30/24 History hydrALAZINE HCL [Apresoline] 50 mg PO BID 07/30/24 07/30/24 History metFORMIN HCL [Glucophage] 500 mg PO BID 07/30/24 07/30/24 History Allergies Allergy/AdvReac Type Severity Reaction Status Date / Time cephalexin [From Keflex] Allergy Itching Verified 07/30/24 10:15 Physical Exam Vitals: Vital Signs Temp Pulse Resp BP Pulse Ox 08/01/24 07:56 97.9 F 77 18 181/77 98 08/01/24 01:10 98.3 F 65 18 145/77 99 07/31/24 22:00 147/69 07/31/24 19:18 98.2 F 66 18 125/67 98 07/31/24 13:08 97.9 F 76 16 123/67 95 Intake and Output 07/31/24 08/01/24 08/01/24 22:59 06:59 14:59 Intake Total 1879 Balance 1879 Intake: Oral 1879 Other: Voiding Method Toilet # Voids 2 # Bowel Movements 3 Results - Lab Results Most recent lab results Calcium 8.0 mg/dL (8.7-10.3) L 08/01/24 05:26 Magnesium 1.6 mg/dL (1.6-2.3) 07/30/24 04:00 07/31/24 05:44 08/01/24 05:26 Assessment and Plan Plan: Assessment: 1. Acute kidney injury secondary to ATN secondary to hypovolemia and further worsen with the use of Lasix. Creatinine 2.63 on admission and is 1.7 today. Unknown baseline renal function. Creatinine noted to be 1.53 dated July 27, 2024. No hydronephrosis noted on kidney ultrasound. UA fairly benign. 2. Metabolic acidosis secondary to acute kidney injury and IV fluids. 3. Benign hypertension. 4. History of A-fib status post ablation. 5. Nausea vomiting and diarrhea. Possibly gastroenteritis. Symptoms seem to have improved. Plan: Maintain IV fluids. Continue to hold diuretics. Avoid nephrotoxins. Add oral bicarb. Continue to monitor renal function and urine output. Thank you for the consultation. I will continue to follow the patient with you during her hospital stay.
[2024-08-01] MEDS: hydrALAZINE HCL 50 MG TAB PO SCH (09:43)
[2024-08-01] MEDS: POTASSIUM CHLORIDE ER 20 MEQ TAB.ER PO STA (09:56)
[2024-08-01] MEDS: SODIUM BICARBONATE TAB 650 MG TAB PO SCH (09:56)
--- NOTE | 2024-08-01 10:08 | P.PN ---
Subjective HISTORY OF PRESENT ILLNESS: This is a 73-year-old female with a past medical history significant for paroxysmal atrial fibrillation, recent A-fib ablation, hypertension, and bowel obstruction with previous bowel resection. Patient follows with a sinter machine operator and director of neurology at [facility]. We have been asked to see the patient in consultation for atrial fibrillation. Patient examined at the bedside. Patient states she initially came to the ER on 07/27/2024 due to generalized weakness, and diarrhea. She states she was given IV fluids and discharged home. She states that over the next couple days her symptoms worsened. She reports continued nausea, vomiting, and diarrhea. This prompted her to come back to the hospital for further evaluation. The patient currently denies any chest pain or pressure. She denies any shortness of breath. She is maintaining sinus mechanism at the time of examination. She reports that she underwent A-fib ablation on July 20, 2024 at [facility]. She states that she was initially diagnosed with A-fib about 5 or 6 years ago. She states that sometimes she does not have palpitations and is unsure when she is actually in atrial fibrillation. She denies having a recent stress test or echocardiogram. 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 Patient states that she was scheduled to see a GI physician tomorrow secondary to her ongoing symptoms. She does report having a colonoscopy a few months ago and an endoscopy last year. Patient was found to have acute kidney injury on admission with creatinine of 2.63. Repeat today is 2.2. DIAGNOSTICS: - EKG reveals sinus mechanism with nonspecific ST-T wave changes. No signs of acute ischemia. - Chest xray low lung volumes with generalized hazy appearance which could represent atelectasis versus pulmonary edema - Laboratory data: WBC 13.52. Hemoglobin 9.9. Platelet count 474. Sodium 141. Potassium 4.1. BUN 20. Creatinine 2.2. - Current home cardiac medications include digoxin 125 mcg daily, losartan 150 mg daily, metoprolol tartrate 100 mg twice a day, Xarelto 20 mg daily 08/01/2024 Patient examined this morning at the bedside. Patient denies chest pain or pressure. Denies SOB. She reports improvement in her diarrhea. Patient states all of her symptoms have been present for about 1 month and denies having any new symptoms after her ablation. General surgery has been consulted due to CT findings revealing subcutaneous collection in the left flank measuring 2.2 x 4.5 cm. General surgery discontinued patient's Xarelto. Patient's blood pressures elevated this morning at 181/77. Echocardiogram completed revealing ejection fraction 55 to 60%, mild pulmonary hypertension, and mild tricuspid regurgitation. PHYSICAL EXAM: VITAL SIGNS: Reviewed. GENERAL: Well-developed in no acute distress. HEENT: Head is normocephalic. Pupils are equal, round. Sclerae anicteric. Mucous membranes of the mouth are moist. Neck supple. No JVD or thyromegaly LUNGS: Respirations even and unlabored. Lungs essentially clear to auscultation bilaterally. HEART: Regular rate and rhythm. S1 and S2 heard. ABDOMEN: Soft. Nondistended. Nontender. EXTREMITIES: Normal range of motion. No clubbing or cyanosis. Peripheral pulses intact. No lower extremity edema NEUROLOGIC: Awake and alert. Oriented x 3. ASSESSMENT: Nausea, Vomiting, diarrhea, x 2 weeks, etiology unclear Paroxysmal atrial fibrillation Recent A-fib ablation, 07/20/2024 at [facility] Acute kidney injury Hypertension History of bowel obstruction with previous bowel resection Obesity: BMI 41.8 Possible left flank hematoma measuring 2.2 x 4[address], Xarelto discontinued per general surgery PLAN: Losartan decreased yesterday to 100 mg daily Digoxin discontinued yesterday Increase hydralazine to 75 mg twice a day for optimal blood pressure control General Surgery has been consulted. Patient's Xarelto has been placed on hold. Case discussed with general surgery this morning. Recommend resuming anticoagulation when cleared by general surgery Continue to monitor kidney function. Patient's kidney function continues to improve this morning. However if patient's kidney function remains abnormal, will need to decrease dose of dofetilide. Continue with 500 mcg at this time. Awaiting records from [facility] of discharge summary with final med list after her ablation Further recommendations pending patient course Nurse practitioner note has been reviewed by physician. Signing provider agrees with the documented findings, assessment, and plan of care documented by LEATHER PATCHER as a scribe. Objective - Vital Signs Vital signs: Vital Signs Temp 97.9 F 08/01/24 07:56 Pulse 77 08/01/24 07:56 Resp 18 08/01/24 07:56 BP 181/77 08/01/24 07:56 Pulse Ox 98 08/01/24 07:56 FiO2 Intake & Output 07/31/24 08/01/24 08/01/24 18:59 06:59 18:59 Intake Total 3000 Balance 3000 Weight 124.738 kg Intake: Oral 3000 Other: Voiding Method Toilet Toilet # Voids 2 # Bowel Movements 3 - Labs CBC & Chem 7: 07/31/24 05:44 08/01/24 05:26 Labs: Abnormal Lab Results - Last 24 Hours (Table) 07/30/24 08/01/24 Range/Units 18:30 05:26 Chloride 111 H (96-109) mmol/L Carbon Dioxide 20.4 L (21.6-31.8) mmol/L Creatinine 1.7 H (0.6-1.5) mg/dL Est GFR (CKD-EPI) 32 L (>=60) BUN/Creatinine Ratio 9.76 L (12.00-20.00) Ratio Glucose 158 H (70-110) mg/dL Calcium 8.0 L (8.7-10.3) mg/dL Stool Lactoferrin Positive A (Negative)
--- NOTE | 2024-08-01 12:58 | P.GSCN ---
History of Present Illness Consult date: 08/01/24 History of present illness: CHIEF COMPLAINT: Abdominal pain with nausea and vomiting HISTORY OF PRESENT ILLNESS: This is a 73-year-old female who presented the hospital with complaints of abdominal pain on the left side of the abdomen as well as across the upper abdomen. She did have nausea and vomiting over the last 2 weeks. The vomiting has stopped. She also was having diarrhea again this has improved. Patient did report a flu few specks of blood in the stool from her hemorrhoids not resolved. Patient did have a CT scan abdomen and pelvis which reported a left flank subcutaneous collection. Consider hematoma within the differential. Patient does take Xarelto at home for atrial fibrillation. Prior surgical history does include lap band, cholecystectomy and hysterectomy. Patient denies any injury to the abdomen. She does have some mild bruising noted on the left side. Patient had a recent cardiac ablation on 07/20. PAST MEDICAL HISTORY: Atrial fibrillation, hypertension PAST SURGICAL HISTORY: See below MEDICATIONS: See below ALLERGIES: See below SOCIAL HISTORY: No illicit drug use. REVIEW OF SYSTEMS: CONSTITUTIONAL: Denies fever or chills. HEENT: Denies blurred vision, vision changes, or eye pain. Denies hemoptysis CARDIOVASCULAR: Denies chest pain or pressure. RESPIRATORY: No shortness of breath. GASTROINTESTINAL: See HPI for pertinent findings HEMATOLOGIC: Denies bleeding disorders. GENITOURINARY: Denies any blood in urine or increased urinary frequency. SKIN: Denies pruitis. Denies rash. PHYSICAL EXAM: VITAL SIGNS: Reviewed GENERAL: Well-developed in no acute distress. ABDOMEN: Soft. Obese. Nondistended. Tenderness with palpation across the upper abdomen and left flank. There are 2 areas of small bruising noted on the left side of the abdomen. NEUROLOGIC: Alert and oriented. Cranial nerves II through XII grossly intact. LABORATORY DATA: wbc 12.2 to 13.52 hgb 9.9 plt 474 Sodium 141 potassium 3.6 creatinine 1.7 Stool for lactoferrin positive. C. difficile negative. IMAGING: CT scan abdomen pelvis reports marked fatty infiltration through the enlarged liver. No suspicious changes to suggest bowel abnormality. Left flank subcutaneous collection consider hematoma. 2.2 x 4.5 cm ASSESSMENT: 1. Left flank subcutaneous collection. Consider hematoma noted on CT scan 2. Nausea, vomiting and diarrhea x 2 weeks. Possible gastroenteritis. Now improved. 3. Abdominal pain 3. Recent A-fib ablation at [facility] on 07/20/2024 PLAN: -No surgical intervention planned -Continue to monitor -Continue to monitor hemoglobin -Okay to resume Xarelto -Case discussed with cardiology nurse practitioner Physician Press Reader note has been reviewed by physician. Signing provider agrees with the documented findings, assessment, and plan of care. I have personally seen and examined the patient, reviewed the COMMERCIAL RELATIONSHIP MANAGER /PAs history, exam and MDM and agree with the assessment and plan as written. Based on total visit time, I have performed more than 50% of the visit. As above: Patient with various GI complaints. Abdominal pain location varies she says. Mainly came in because of the intermittent vomiting and diarrhea. Apparently follows with GI outside of town. Had a colonoscopy a few months ago and an EGD a year ago. No recent changes in medications she states. White blood cell count mildly elevated. Patient denies any localized pain to the left side of her flank. No recent trauma. CAT scan shows a subcutaneous area of inflammatory change. There is some mild bruising on the left flank on exam. Could be related to some mild trauma that she was unaware of. No plans for end oscopy at this time. Resume regular diet. Follow stool cultures. If symptoms persist could consider GI consult here. Otherwise hopefully can resume regular diet plan for discharge with follow-up by her own parker. Will reassess tomorrow. Past Medical History Past Medical History: Atrial Fibrillation, Hypertension History of Any Multi-Drug Resistant Organisms: None Reported Past Surgical History: Ablation, Back Surgery, Cholecystectomy, Hysterectomy, Joint Replacement, Orthopedic Surgery Past Psychological History: No Psychological Hx Reported Smoking Status: Never smoker Past Alcohol Use History: Occasional Past Drug Use History: None Reported Medications and Allergies Home Medications Medication Instructions Recorded Confirmed Type Atorvastatin [Lipitor] 20 mg PO DAILY 07/30/24 07/30/24 History Calcium Carbonate/Vitamin D3 1 tab PO DAILY 07/30/24 07/30/24 History [Calcium 600 mg-Vit D3 5 mcg (200 unit)] Cetirizine HCl [Zyrtec] 10 mg PO DAILY 07/30/24 07/30/24 History Digoxin [Digitek] 125 mcg PO DAILY 07/30/24 07/30/24 History Dofetilide [Tikosyn] 500 mcg PO BID 07/30/24 07/30/24 History Esomeprazole Magnesium [NexIUM] 40 mg PO BID 07/30/24 07/30/24 History Furosemide [Lasix] 40 mg PO DAILY 07/30/24 07/30/24 History Losartan Potassium [Cozaar] 150 mg PO DAILY 07/30/24 07/30/24 History Metoprolol Tartrate [Lopressor] 100 mg PO BID 07/30/24 07/30/24 History Multivitamins, Thera [Multivitamin 1 tab PO DAILY 07/30/24 07/30/24 History (formulary)] Potassium Chloride ER [K-Dur 20] 20 meq PO BID 07/30/24 07/30/24 History Rivaroxaban [Xarelto] 20 mg PO DAILY 07/30/24 07/30/24 History Sucralfate [Carafate] 1 gm PO QID 07/30/24 07/30/24 History carvediloL [Coreg] 12.5 mg PO BID 07/30/24 07/30/24 History dilTIAZem HCL [Tiazac] 360 mg PO DAILY 07/30/24 07/30/24 History hydrALAZINE HCL [Apresoline] 50 mg PO BID 07/30/24 07/30/24 History metFORMIN HCL [Glucophage] 500 mg PO BID 07/30/24 07/30/24 History Allergies Allergy/AdvReac Type Severity Reaction Status Date / Time cephalexin [From Keflex] Allergy Itching Verified 07/30/24 10:15 Surgical - Exam Vital Signs Temp Pulse Resp BP Pulse Ox 98.1 F 71 18 137/68 98 07/30/24 02:52 07/30/24 02:52 07/30/24 02:52 07/30/24 02:52 07/30/24 02:52 Results - Labs 07/31/24 05:44 08/01/24 05:26 Abnormal Lab Results - Last 24 Hours (Table) 07/30/24 08/01/24 Range/Units 18:30 05:26 Chloride 111 H (96-109) mmol/L Carbon Dioxide 20.4 L (21.6-31.8) mmol/L Creatinine 1.7 H (0.6-1.5) mg/dL Est GFR (CKD-EPI) 32 L (>=60) BUN/Creatinine Ratio 9.76 L (12.00-20.00) Ratio Glucose 158 H (70-110) mg/dL Calcium 8.0 L (8.7-10.3) mg/dL Stool Lactoferrin Positive A (Negative) Diabetes panel 08/01/24 Range/Units 05:26 Sodium 141 (135-145) mmol/L Potassium 3.6 (3.5-5.5) mmol/L Chloride 111 H (96-109) mmol/L Carbon Dioxide 20.4 L (21.6-31.8) mmol/L BUN 16.6 (9.0-27.0) mg/dL Creatinine 1.7 H (0.6-1.5) mg/dL Glucose 158 H (70-110) mg/dL Calcium 8.0 L (8.7-10.3) mg/dL Calcium panel 08/01/24 Range/Units 05:26 Calcium 8.0 L (8.7-10.3) mg/dL Pituitary panel 08/01/24 Range/Units 05:26 Sodium 141 (135-145) mmol/L Potassium 3.6 (3.5-5.5) mmol/L Chloride 111 H (96-109) mmol/L Carbon Dioxide 20.4 L (21.6-31.8) mmol/L BUN 16.6 (9.0-27.0) mg/dL Creatinine 1.7 H (0.6-1.5) mg/dL Glucose 158 H (70-110) mg/dL Calcium 8.0 L (8.7-10.3) mg/dL Adrenal panel 08/01/24 Range/Units 05:26 Sodium 141 (135-145) mmol/L Potassium 3.6 (3.5-5.5) mmol/L Chloride 111 H (96-109) mmol/L Carbon Dioxide 20.4 L (21.6-31.8) mmol/L BUN 16.6 (9.0-27.0) mg/dL Creatinine 1.7 H (0.6-1.5) mg/dL Glucose 158 H (70-110) mg/dL Calcium 8.0 L (8.7-10.3) mg/dL
--- NOTE | 2024-08-01 14:20 | P.PN ---
Subjective Progress Note Date: 08/01/24 Principal diagnosis: Reason for follow-up is acute gastroenteritis/infection Patient is a 73-year-old female with a past medical history significant for hypertension atrial fibrillation, presenting to the hospital for evaluation of nausea vomiting left abdominal pain and diarrhea patient did have a CT head did not show any colitis concerning for left flank subcutaneous collection possible hematoma seen by surgery no drainage. On today's evaluation that is 08/01/2024, the patient continues to be afebrile, the patient is on room air and breathing comfortably, the Pt denies having any chest pain or cough, the patient still complaining of nausea vomiting and diarrhea though frequency is slightly decreased. No CBC was done today creatinine is 1.7 stool cultures are pending Objective - Vital Signs Vital signs: Vital Signs Temp 98.1 F 08/01/24 13:39 Pulse 68 08/01/24 13:39 Resp 16 08/01/24 13:39 BP 158/69 08/01/24 13:39 Pulse Ox 97 08/01/24 13:39 FiO2 Intake & Output 07/31/24 08/01/24 08/01/24 18:59 06:59 18:59 Intake Total 3000 Balance 3000 Weight 124.738 kg Intake: Oral 3000 Other: Voiding Method Toilet Toilet Toilet # Voids 2 # Bowel Movements 3 - Exam GENERAL DESCRIPTION: An elderly female lying in bed in no distress RESPIRATORY SYSTEM: Unlabored breathing , decreased breath sounds at bases HEART: S1 S2 regular rate and rhythm , ABDOMEN: Soft , no tenderness EXTREMITIES: No edema feet - Labs CBC & Chem 7: 07/31/24 05:44 08/01/24 05:26 Labs: Abnormal Lab Results - Last 24 Hours (Table) 08/01/24 Range/Units 05:26 Chloride 111 H (96-109) mmol/L Carbon Dioxide 20.4 L (21.6-31.8) mmol/L Creatinine 1.7 H (0.6-1.5) mg/dL Est GFR (CKD-EPI) 32 L (>=60) BUN/Creatinine Ratio 9.76 L (12.00-20.00) Ratio Glucose 158 H (70-110) mg/dL Calcium 8.0 L (8.7-10.3) mg/dL Microbiology - Last 24 Hours (Table) 10/06/24 08:30 Stool Culture - Preliminary Stool Assessment and Plan (1) Leukocytosis Current Visit: Yes Status: Acute Code(s): D72.829 - ELEVATED WHITE BLOOD CELL COUNT, UNSPECIFIED SNOMED Code(s): 095821440 (2) Allergy to cephalosporin Current Visit: Yes Status: Acute Code(s): Z88.1 - ALLERGY STATUS TO OTHER ANTIBIOTIC AGENTS SNOMED Code(s): 527049206 (3) Gastroenteritis Current Visit: No Status: Acute Code(s): K52.9 - NONINFECTIVE GASTROENTERITIS AND COLITIS, UNSPECIFIED SNOMED Code(s): 36343323 Plan: 1patient presented to hospital with nausea vomiting and diarrhea that has been going on for almost a week and this patient did have elevated white count but no fever with a question of infectious versus noninfectious etiology patient did not have any antibiotic exposure and stool for C. difficile negative however stool lactoferrin came back positive. 2we will wait for the stool culture to be finalized. 3-cephalexin allergy that will limit the number of antibiotic safe to use 4continue with the Levaquin and Flagyl while waiting for the culture to finalize we will add Questran for symptomatic relief Dictation was produced using Sequence dictation software. please excuse any grammatical, word or spelling errors. Time with Patient: Less than 30
[2024-08-01] MEDS: RIVAROXABAN 15 MG TAB PO SCH (17:42)
--- NOTE | 2024-08-01 23:53 | PN ---
PROGRESS NOTE DATE OF SERVICE: 08/01/2024 SUBJECTIVE: This is a 73-year-old woman, who was admitted with nausea, vomiting, possibly infectious gastroenteritis, is being closely monitored. No chest pain. No palpitation. C difficile is negative. OBJECTIVE: VITAL SIGNS: Pulse is 68, blood pressure 158/69, respirations 16. CHEST: Clear. CARDIOVASCULAR: S1, S2. ABDOMEN: Soft. No guarding. No rigidity. Bowel sounds present. LABORATORY DATA: Noted. ASSESSMENT: 1. Severe nausea, vomiting, diarrhea, possibly acute infectious gastroenteritis. 2. Acute on chronic renal failure. 3. Severe hypokalemia, present on admission, improved. 4. Atrial fibrillation, status post ablation. 5. Hypertension. 6. Multiple complex medical issues. RECOMMENDATIONS: Recommend to continue current management and continue symptomatic treatment. Otherwise, at this time, I would recommend empiric antibiotics. Closely follow with Gastroenterology. Guarded prognosis. Further recommendations to follow. MMODL / IJN: [id number] /
[2024-08-02 07:27] LABS: Cryptosporidium Antigen Negative (Negative)
[2024-08-02] MEDS: hydrALAZINE HCL 50 MG TAB PO SCH (09:26)
--- NOTE | 2024-08-02 10:10 | P.PN ---
Subjective HISTORY OF PRESENT ILLNESS: This is a 73-year-old female with a past medical history significant for paroxysmal atrial fibrillation, recent A-fib ablation, hypertension, and bowel obstruction with previous bowel resection. Patient follows with a information analyst and forms builder at [facility]. We have been asked to see the patient in consultation for atrial fibrillation. Patient examined at the bedside. Patient states she initially came to the ER on 07/27/2024 due to generalized weakness, and diarrhea. She states she was given IV fluids and discharged home. She states that over the next couple days her symptoms worsened. She reports continued nausea, vomiting, and diarrhea. This prompted her to come back to the hospital for further evaluation. The patient currently denies any chest pain or pressure. She denies any shortness of breath. She is maintaining sinus mechanism at the time of examination. She reports that she underwent A-fib ablation on July 20, 2024 at [facility]. She states that she was initially diagnosed with A-fib about 5 or 6 years ago. She states that sometimes she does not have palpitations and is unsure when she is actually in atrial fibrillation. She denies having a recent stress test or echocardiogram. 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 Patient states that she was scheduled to see a GI physician tomorrow secondary to her ongoing symptoms. She does report having a colonoscopy a few months ago and an endoscopy last year. Patient was found to have acute kidney injury on admission with creatinine of 2.63. Repeat today is 2.2. DIAGNOSTICS: - EKG reveals sinus mechanism with nonspecific ST-T wave changes. No signs of acute ischemia. - Chest xray low lung volumes with generalized hazy appearance which could represent atelectasis versus pulmonary edema - Laboratory data: WBC 13.52. Hemoglobin 9.9. Platelet count 474. Sodium 141. Potassium 4.1. BUN 20. Creatinine 2.2. - Current home cardiac medications include digoxin 125 mcg daily, losartan 150 mg daily, metoprolol tartrate 100 mg twice a day, Xarelto 20 mg daily 08/01/2024 Patient examined this morning at the bedside. Patient denies chest pain or pressure. Denies SOB. She reports improvement in her diarrhea. Patient states all of her symptoms have been present for about 1 month and denies having any new symptoms after her ablation. General surgery has been consulted due to CT findings revealing subcutaneous collection in the left flank measuring 2.2 x 4.5 cm. General surgery discontinued patient's Xarelto. Patient's blood pressures elevated this morning at 181/77. Echocardiogram completed revealing ejection fraction 55 to 60%, mild pulmonary hypertension, and mild tricuspid regurgitation. 08/02/2024 Patient examined this morning at the bedside. Patient currently denies chest pain or pressure. She denies shortness of breath. She continues to report some abdominal discomfort with diarrhea although overall improved. She is also reporting sinus congestion this morning. Blood pressure remains elevated with a systolic in the 160s. PHYSICAL EXAM: VITAL SIGNS: Reviewed. GENERAL: Well-developed in no acute distress. HEENT: Head is normocephalic. Pupils are equal, round. Sclerae anicteric. Mucous membranes of the mouth are moist. Neck supple. No JVD or thyromegaly LUNGS: Respirations even and unlabored. Lungs essentially clear to auscultation bilaterally. HEART: Regular rate and rhythm. S1 and S2 heard. ABDOMEN: Soft. Nondistended. Nontender. EXTREMITIES: Normal range of motion. No clubbing or cyanosis. Peripheral pulses intact. No lower extremity edema NEUROLOGIC: Awake and alert. Oriented x 3. ASSESSMENT: Nausea, Vomiting, diarrhea, x 2 weeks, etiology unclear Paroxysmal atrial fibrillation Recent A-fib ablation, 07/20/2024 at [facility] Acute kidney injury Hypertension History of bowel obstruction with previous bowel resection Obesity: BMI 41.8 Possible left flank hematoma measuring 2.2 x 4.[address], Xarelto discontinued per general surgery PLAN: Increase hydralazine to 75 mg TID for optimal blood pressure control Patient has been resumed on Xarelto per general surgery Patient's kidney function continues to improve. Awaiting labs from this cuca ramos Will continue on current cardiac medications at this time Typically, Tikosyn is discontinued after cardiac ablation. However patient believes she is still taking this. Awaiting updated medication list from patient's primary information analyst. Patient to discuss this medication with her primary information analyst at her follow-up appointment. Patient is stable from a cardiac perspective Further recommendations pending patient course Nurse practitioner note has been reviewed by physician. Signing provider agrees with the documented findings, assessment, and plan of care documented by HEALTH PROMOTER as a scribe. Objective - Vital Signs Vital signs: Vital Signs Temp 97.8 F 08/02/24 07:40 Pulse 72 08/02/24 07:40 Resp 16 08/02/24 07:40 BP 163/72 08/02/24 07:40 Pulse Ox 96 08/02/24 07:40 FiO2 Intake & Output 08/01/24 08/02/24 08/02/24 18:59 06:59 18:59 Intake Total 1860 240 Balance 1860 240 Intake: Oral 1860 240 Other: Voiding Method Toilet # Voids 3 # Bowel Movements 3 - Labs CBC & Chem 7: 07/31/24 05:44 08/01/24 05:26 Labs: Microbiology - Last 24 Hours (Table) 07/30/24 08:30 Stool Culture - Preliminary Stool 07/31/24 15:25 Blood Culture - Preliminary Blood
[2024-08-02 10:47] LABS: Basophils # (A) 0.03 X 10*3/uL (0.00-0.10); Basophils % (A) 0.3 %; Eosinophils # (A) 0.19 X 10*3/uL (0.04-0.35); Eosinophils % (A) 1.7 %; HCT 27.3 % (37.2-46.3); HGB 8.3 g/dL (12.0-15.0); Lymphocytes # (A) 2.27 X 10*3/uL (0.90-5.00); Lymphocytes % (A) 20.7 %; MCH 25.9 pg (27.0-32.0); MCHC 30.4 g/dL (32.0-37.0); MCV 85.3 FL (80.0-97.0); Mean Platelet Volume 10.5 FL (9.5-12.2); Monocytes # (A) 0.79 X 10*3/uL (0.20-1.00); Monocytes % (A) 7.2 %; NRBC Per 100 WBC 0 X 10*3/uL (0.00-0.01); Neutrophils # (A) 7.64 X 10*3/uL (1.80-7.70); Neutrophils % (A) 69.6 %; Platelet Count 353 X 10*3/uL (140-440); RDW 15.9 % (11.5-14.5); WBC 10.97 X 10*3/uL (4.50-10.00)
--- NOTE | 2024-08-02 10:48 | P.PN ---
Subjective Patient is seen in follow-up for acute kidney injury. Creatinine 1.7 yesterday. Denies chest pain or shortness of breath. On IV fluids. Has been voiding. Tolerating regular diet. Vital signs are stable. General: No acute distress. HEENT: Head exam is unremarkable. LUNGS: No audible rhonchi or wheezes. HEART: Rate and Rhythm are regular. ABDOMEN: Nontender, obese. EXTREMITITES: No edema. Objective - Vital Signs Vital signs: Vital Signs Temp 97.8 F 08/02/24 07:40 Pulse 72 08/02/24 07:40 Resp 16 08/02/24 07:40 BP 163/72 08/02/24 07:40 Pulse Ox 96 08/02/24 07:40 FiO2 Intake & Output 08/01/24 08/02/24 08/02/24 18:59 06:59 18:59 Intake Total 1860 240 Balance 1860 240 Intake: Oral 1860 240 Other: Voiding Method Toilet # Voids 3 # Bowel Movements 3 - Labs CBC & Chem 7: 07/31/24 05:44 08/01/24 05:26 Labs: Microbiology - Last 24 Hours (Table) 07/30/24 08:30 Stool Culture - Preliminary Stool 07/31/24 15:25 Blood Culture - Preliminary Blood Assessment and Plan Plan: Assessment: 1. Acute kidney injury secondary to ATN secondary to hypovolemia and further worsen with the use of Lasix. Creatinine 2.63 on admission and improved to 1.7 yesterday. Unknown baseline renal function. Creatinine noted to be 1.53 dated July 27, 2024. No hydronephrosis noted on kidney ultrasound. UA fairly benign. 2. Metabolic acidosis secondary to acute kidney injury and IV fluids. On oral bicarb. 3. Benign hypertension. 4. History of A-fib status post ablation. 5. Nausea vomiting and diarrhea. Possibly gastroenteritis. Symptoms seem to have improved. Plan: Maintain IV fluids - will decrease rate. Encouraged oral intake. Continue to hold diuretics. Avoid nephrotoxins. Continue to monitor renal function and urine output. Hydralazine frequency increased to 3 times daily by cardiology today. Morning labs pending.
[2024-08-02 11:01] LABS: BUN/Creat Ratio 7.82 Ratio (12.00-20.00); Blood Urea Nitrogen 13.3 mg/dL (9.0-27.0); Calcium 8.1 mg/dL (8.7-10.3); Carbon Dioxide 19.2 mmol/L (21.6-31.8); Chloride 112 mmol/L (96-109); Glucose 185 mg/dL (70-110); Magnesium 1.5 mg/dL (1.5-2.4); Potassium 3.5 mmol/L (3.5-5.5); Sodium 143 mmol/L (135-145)
--- NOTE | 2024-08-02 11:40 | XR ---
EXAMINATION TYPE: XR chest 1V portable DATE OF EXAM: 08/02/2024 COMPARISON: NONE HISTORY: Shortness of breath TECHNIQUE: Frontal and lateral views of the chest are obtained. FINDINGS: Scattered senescent parenchymal changes noted. Hyperinflation compatible with COPD. No evidence for infiltrate. No evidence for atelectasis. Heart size is stable. Mediastinal structures are stable and grossly unremarkable. No evidence for hilar prominence. Degenerative changes dorsal spine. IMPRESSION: 1. No evidence for acute pulmonary disease. [facility], , 08/02/2024 11:38 AM
--- NOTE | 2024-08-02 13:16 | P.PN ---
Subjective Progress Note Date: 08/02/24 CHIEF COMPLAINT: Nausea, vomiting and diarrhea HISTORY OF PRESENT ILLNESS: Patient did have episode of emesis this morning. She reports her bowel movements have been loose. Patient reports pain across th e upper abdomen. Initially she told me she had no left flank pain. During Dr. Dahl's exam patient did note left flank pain. Afebrile. WBC 10.97 down from 13 hemoglobin down from 9.9-8.3 platelets 353 stool studies negative so far. PHYSICAL EXAM: VITAL SIGNS: Reviewed. GENERAL: Well-developed in no acute distress. ABDOMEN: Soft. Nondistended. Mild tenderness across upper abdomen. Mild b ruising left flank NEUROLOGIC: Alert and oriented. Cranial nerves II through XII grossly intact. ASSESSMENT: 1. Left flank subcutaneous collection, possible hematoma 2. Nausea, vomiting and diarrhea 3. Abdominal pain 4. Recent A-fib ablation at [facility] on 07/20/2024 PLAN: -No surgical intervention planned -Agree with GI consult -Okay to continue Xarelto -Surgical service will sign off. Please call with any questions or concerns Physician Dean Of Education note has been reviewed by physician. Signing provider agrees with the documented findings, assessment, and plan of care. Objective - Vital Signs Vital signs: Vital Signs Temp 97.8 F 08/02/24 07:40 Pulse 72 08/02/24 07:40 Resp 16 08/02/24 07:40 BP 163/72 08/02/24 07:40 Pulse Ox 96 08/02/24 07:40 FiO2 Intake & Output 08/01/24 08/02/24 08/02/24 18:59 06:59 18:59 Intake Total 1860 240 Balance 1860 240 Intake: Oral 1860 240 Other: Voiding Method Toilet # Voids 3 # Bowel Movements 3 - Labs CBC & Chem 7: 08/02/24 05:21 08/02/24 05:21 Labs: Abnormal Lab Results - Last 24 Hours (Table) 08/02/24 08/02/24 Range/Units 05:21 05:21 WBC 10.97 H (4.50-10.00) X 10*3/uL RBC 3.20 L (4.10-5.20) X 10*6/uL Hgb 8.3 L (12.0-15.0) g/dL Hct 27.3 L (37.2-46.3) % MCH 25.9 L (27.0-32.0) pg MCHC 30.4 L (32.0-37.0) g/dL RDW 15.9 H (11.5-14.5) % Immature Gran # 0.05 H (0.00-0.04) X 10*3/uL Chloride 112 H (96-109) mmol/L Carbon Dioxide 19.2 L (21.6-31.8) mmol/L Creatinine 1.7 H (0.6-1.5) mg/dL Est GFR (CKD-EPI) 32 L (>=60) BUN/Creatinine Ratio 7.82 L (12.00-20.00) Ratio Glucose 185 H (70-110) mg/dL Calcium 8.1 L (8.7-10.3) mg/dL Microbiology - Last 24 Hours (Table) 07/30/24 08:30 Stool Culture - Preliminary Stool 07/31/24 15:25 Blood Culture - Preliminary Blood
[2024-08-02] MEDS ORDERED: HYDROmorphone 0.5 MG/0.5 ML SYRINGE IVP PRN (14:18)
--- NOTE | 2024-08-02 15:03 | P.CONS ---
History of Present Illness - Reason for Consult Consult date: 08/02/24 Abdominal pain, diarrhea Requesting physician: Maryam Leon - Chief Complaint Nausea, vomiting, abdominal pain - History of Present Illness This is a pleasant 73-year-old female with past medical history including atrial fibrillation who recently underwent cardiac ablation, hypertension, and morbid obesity who presented 3 days ago with complaints of nausea vomiting and left- sided abdominal pain. States she has had nausea vomiting and some diarrhea for about a week now. She denied any blood in her stool. No hematemesis. States diarrhea has improved nausea and vomiting is improving although she did have a emesis after breakfast this morning. Ate a small amount of lunch and states she has been able to hold it down. Abdominal pain is improved. She had a CT of the abdomen pelvis that reported a left flank subcutaneous collection consider possible hematoma. Patient is on Xarelto for atrial fibrillation. General surgery was consulted with no plans for surgical intervention believe could possibly be related to mild trauma. Patient does follow with a [facility] oenterologist out of [place] Dr. Gracia which she states she had a colonoscopy 2 months ago and an EGD within the last year. She does not recall any abnormal findings. Patient has been afebrile. Today's labs WBC 10.9 hemoglobin 8.3 platelet count 353,000 sodium 143 potassium 3.5 BUN 13 creatinine 1.7 magnesium 1.5 stool Cryptosporidium and Giardia negative C. difficile negative and stool cultures negative. Review of Systems REVIEW OF SYSTEMS: CARDIOPULMONARY: No chest pain or shortness of breath. Gastrointestinal: Abdominal pain, mostly on the left and reported as improved. Nausea and vomiting, improving. Diarrhea improved. No hematemesis, coffee-g round emesis. No rectal bleeding, or melena. GENITOURINARY: No dysuria or hematuria. MUSCULOSKELETAL: Reports normal range of motion. SKIN: No rashes. No jaundice. ENDOCRINE: No chills, fevers. No excessive weight gain or loss. No polydipsia or polyuria. PSYCHIATRIC: Unremarkable. NEUROLOGY: No change in mental status. Denies dizziness, headache. ENT: Vision unremarkable. CONSTITUTIONAL: No recent weight loss. No fever, chills, night sweats. Past Medical History Past Medical History: Atrial Fibrillation, Hypertension History of Any Multi-Drug Resistant Organisms: None Reported Past Surgical History: Ablation, Back Surgery, Cholecystectomy, Hysterectomy, Joint Replacement, Orthopedic Surgery Past Psychological History: No Psychological Hx Reported Smoking Status: Never smoker Past Alcohol Use History: Occasional Past Drug Use History: None Reported Medications and Allergies Home Medications Medication Instructions Recorded Confirmed Type Atorvastatin [Lipitor] 20 mg PO DAILY 07/30/24 07/30/24 History Calcium Carbonate/Vitamin D3 1 tab PO DAILY 07/30/24 07/30/24 History [Calcium 600 mg-Vit D3 5 mcg (200 unit)] Cetirizine HCl [Zyrtec] 10 mg PO DAILY 07/30/24 07/30/24 History Digoxin [Digitek] 125 mcg PO DAILY 07/30/24 07/30/24 History Dofetilide [Tikosyn] 500 mcg PO BID 07/30/24 07/30/24 History Esomeprazole Magnesium [NexIUM] 40 mg PO BID 07/30/24 07/30/24 History Furosemide [Lasix] 40 mg PO DAILY 07/30/24 07/30/24 History Losartan Potassium [Cozaar] 150 mg PO DAILY 07/30/24 07/30/24 History Metoprolol Tartrate [Lopressor] 100 mg PO BID 07/30/24 07/30/24 History Multivitamins, Thera [Multivitamin 1 tab PO DAILY 07/30/24 07/30/24 History (formulary)] Potassium Chloride ER [K-Dur 20] 20 meq PO BID 07/30/24 07/30/24 History Rivaroxaban [Xarelto] 20 mg PO DAILY 07/30/24 07/30/24 History Sucralfate [Carafate] 1 gm PO QID 07/30/24 07/30/24 History carvediloL [Coreg] 12.5 mg PO BID 07/30/24 07/30/24 History dilTIAZem HCL [Tiazac] 360 mg PO DAILY 07/30/24 07/30/24 History hydrALAZINE HCL [Apresoline] 50 mg PO BID 07/30/24 07/30/24 History metFORMIN HCL [Glucophage] 500 mg PO BID 07/30/24 07/30/24 History Allergies Allergy/AdvReac Type Severity Reaction Status Date / Time cephalexin [From Keflex] Allergy Itching Verified 07/30/24 10:15 Physical Exam Vitals: Vital Signs Temp Pulse Resp BP BP Pulse Ox 08/02/24 13:09 97.6 F 65 20 136/71 08/02/24 07:40 97.8 F 72 16 163/72 96 08/02/24 02:00 98.3 F 70 14 169/89 97 08/01/24 20:00 97.5 F L 70 16 163/90 98 08/01/24 13:39 98.1 F 68 16 158/69 97 Intake and Output 08/01/24 08/02/24 08/02/24 22:59 06:59 14:59 Intake Total 1080 240 Balance 1080 240 Intake: Oral 1080 240 Other: # Voids 3 # Bowel Movements 3 General appearance: The patient is alert, oriented, appears in no acute distress. HET: Head is normocephalic and atraumatic. Conjunctiva pink. Sclera anicteric. Neck: Supple without lymphadenopathy. Trachea midline. Heart: Regular. Lungs: Equal expansion, normal respiratory effort. Abdomen: Soft, left flank tenderness, otherwise nontender, nondistended. Skin: No rashes. No jaundice. Extremities: Normal skin color and turgor. No pedal edema. Neurological: No focal deficits. Alert and oriented x3. Results CBC & Chem 7: 08/02/24 05:21 08/02/24 05:21 Labs: Abnormal Lab Results - Last 24 Hours (Table) 08/02/24 08/02/24 Range/Units 05:21 05:21 WBC 10.97 H (4.50-10.00) X 10*3/uL RBC 3.20 L (4.10-5.20) X 10*6/uL Hgb 8.3 L (12.0-15.0) g/dL Hct 27.3 L (37.2-46.3) % MCH 25.9 L (27.0-32.0) pg MCHC 30.4 L (32.0-37.0) g/dL RDW 15.9 H (11.5-14.5) % Immature Gran # 0.05 H (0.00-0.04) X 10*3/uL Chloride 112 H (96-109) mmol/L Carbon Dioxide 19.2 L (21.6-31.8) mmol/L Creatinine 1.7 H (0.6-1.5) mg/dL Est GFR (CKD-EPI) 32 L (>=60) BUN/Creatinine Ratio 7.82 L (12.00-20.00) Ratio Glucose 185 H (70-110) mg/dL Calcium 8.1 L (8.7-10.3) mg/dL Microbiology - Last 24 Hours (Table) 07/30/24 08:30 Stool Culture - Preliminary Stool 07/31/24 15:25 Blood Culture - Preliminary Blood Comments: CT abdomen pelvis without contrast reports marked fatty infiltration through the enlarged liver. No suspicious changes suggest bowel abnormality. Left flank subcutaneous collection. Consider hematoma within the differential Assessment and Plan (1) Nausea and vomiting Narrative/Plan: 73-year-old female with 1 week duration nausea vomiting and diarrhea which is improving presented to the hospital. She also had left flank pain with CT e vidence of fluid collection possible hematoma/trauma which is being followed by general surgery with no plans for surgical intervention. Patient does follow with a staff analyst in [facility] and he had recent colonoscopy and EGD. She was admitted with evidence of leukocytosis, no fevers and likely dealing with viral gastroenteritis. Stool cultures all negative, C. difficile negative. No plans on endoscopic evaluation. Continue to treat symptomatically. Current Visit: Yes Status: Acute Code(s): R11.2 - NAUSEA WITH VOMITING, UNSPECIFIED SNOMED Code(s): 57335080 (2) Diarrhea Current Visit: Yes Status: Acute Code(s): R19.7 - DIARRHEA, UNSPECIFIED SNOMED Code(s): 61871117 (3) Gastroenteritis Current Visit: No Status: Acute Code(s): K52.9 - NONINFECTIVE GASTROENTERITIS AND COLITIS, UNSPECIFIED SNOMED Code(s): 29322522 (4) Hypomagnesemia Current Visit: No Status: Acute Code(s): E83.42 - HYPOMAGNESEMIA SNOMED Code(s): 675961848 Plan: 1. Continue symptomatic and supportive care 2. Diet as tolerated 3. Stool cultures, C. difficile all ordered and reviewed 4. Patient with recent upper and lower endoscopy. No plans on repeat endoscopy at this time 5. Continue supportive treatment, symptoms are improved. Likely viral enteritis. Thank you for this consultation, we will continue to follow. Dr. Damian Roger I agree with the dictator's note, documented as a scribe by Shyla Sprague.
[2024-08-02] MEDS: LEVOFLOXACIN 500MG-D5W PMX 500 MG in DEXTROSE/WATER 1 100ML.BAG IVPB SCH (17:44)
[2024-08-02] MEDS: RIVAROXABAN 20 MG TAB PO SCH (17:47)
--- NOTE | 2024-08-03 01:08 | PN ---
PROGRESS NOTE DATE OF SERVICE: 08/02/2024 SUBJECTIVE: This is a 73-year-old woman, who was admitted with nausea, vomiting, diarrhea, persistent abdominal discomfort. The most recent chest x-ray which I reviewed personally did not show acute abnormality. No chest pain. No palpitation. OBJECTIVE: VITAL SIGNS: Pulse is 70, blood pressure 169/80, respirations 14. CHEST: A few scattered rhonchi. ABDOMEN: Soft, mild diffuse discomfort. LEGS: No edema. NERVOUS SYSTEM: Nonfocal. LABORATORY DATA: WBC 10.97. Cryptosporidium and giardia are negative. ASSESSMENT: 1. Severe nausea, vomiting, diarrhea, possibly acute infectious gastroenteritis. 2. Acute on chronic renal failure. 3. Severe hypokalemia, present on admission, improved. 4. Atrial fibrillation, status post ablation. 5. Hypertension. 6. Multiple complex medical issues. RECOMMENDATIONS: Recommend to continue current management and continue symptomatic treatment. Repeat labs. Otherwise, closely follow with GI and as well as Surgery. Further recommendations to follow. MMODL / IJN: [id number] /
[2024-08-03 04:11] LABS: Basophils % (A) 0 %; Eosinophils # (A) 0.2 k/uL (0-0.7); Eosinophils % (A) 2 %; HCT 26.6 % (34.0-46.0); HGB 8.4 gm/dL (11.4-16.0); Hypochromasia Marked; Lymphocytes # (A) 1.9 k/uL (1.0-4.8); Lymphocytes % (A) 18 %; MCH 26.2 pg (25.0-35.0); MCHC 31.7 g/dL (31.0-37.0); MCV 82.7 fL (80.0-100.0); Mean Platelet Volume 7.1; Monocytes # (A) 0.6 k/uL (0-1.0); Monocytes % (A) 6 %; Neutrophils # (A) 7.6 k/uL (1.3-7.7); Neutrophils % (A) 72 %; Platelet Count 326 k/uL (150-450); RBC 3.21 m/uL (3.80-5.40); RDW 15.6 % (11.5-15.5); WBC 10.6 k/uL (3.8-10.6)
[2024-08-03 04:24] LABS: ALT 19 U/L (4-34); AST 21 U/L (14-36); African American GFR (CKD) 42 (>60 ml/min/1.73 sqM); Albumin 2.5 g/dL (3.5-5.0); Alkaline Phosphatase 113 U/L (38-126); Anion Gap 3 mmol/L; Blood Urea Nitrogen 12 mg/dL (7-17); Calcium 8.3 mg/dL (8.4-10.2); Carbon Dioxide 21 mmol/L (22-30); Chloride 116 mmol/L (98-107); Globulin 2.6 g/dL; Glucose 179 mg/dL (74-99); Magnesium 1.3 mg/dL (1.6-2.3); Non-African American GFR(CKD) 36 (>60 ml/min/1.73 sqM); Potassium 3.1 mmol/L (3.5-5.1); Sodium 140 mmol/L (137-145); Total Bilirubin 0.4 mg/dL (0.2-1.3); Total Protein 5.1 g/dL (6.3-8.2)
[2024-08-03] MEDS ORDERED: Potassium Replacement Protocol 1 EACH MISC MISCELLANE PRN (05:39)
[2024-08-03] MEDS: POTASSIUM CHLORIDE ER 20 MEQ TAB.ER PO SCH (06:16)
[2024-08-03] MEDS: MAGNESIUM OXIDE 400 MG TAB PO SCH (08:47)
--- NOTE | 2024-08-03 09:05 | P.PN ---
Subjective Progress Note Date: 08/02/24 Principal diagnosis: Reason for follow-up is acute gastroenteritis/infection Patient is a 73-year-old female with a past medical history significant for hypertension atrial fibrillation, presenting to the hospital for evaluation of nausea vomiting left abdominal pain and diarrhea patient did have a CT head did not show any colitis concerning for left flank subcutaneous collection possible hematoma seen by surgery no drainage. On today's evaluation that is 08/02/2024, Patient is afebrile patient is currently on room air and denies having any shortness of breath, the patient denies any chest pain or cough, the patient still complaining of episode of vomiting this morning after she took her pills and diarrhea however nursing staff were not able to confirm the same. Patient white count is 10.97, creatinine is 1.7 stool cultures pending blood cultures so far pending Objective - Vital Signs Vital signs: Vital Signs Temp 97.6 F 08/02/24 13:09 Pulse 65 08/02/24 13:09 Resp 20 08/02/24 13:09 BP 136/71 08/02/24 13:09 Pulse Ox 96 08/02/24 07:40 FiO2 Intake & Output 08/01/24 08/02/24 08/02/24 18:59 06:59 18:59 Intake Total 1860 240 Balance 1860 240 Intake: Oral 1860 240 Other: Voiding Method Toilet # Voids 3 # Bowel Movements 3 - Exam GENERAL DESCRIPTION: An elderly female lying in bed in no distress RESPIRATORY SYSTEM: Unlabored breathing , decreased breath sounds at bases HEART: S1 S2 regular rate and rhythm , ABDOMEN: Soft , no tenderness EXTREMITIES: No edema feet - Labs CBC & Chem 7: 08/03/24 03:46 08/03/24 03:46 Labs: Abnormal Lab Results - Last 24 Hours (Table) 08/02/24 08/02/24 Range/Units 05:21 05:21 WBC 10.97 H (4.50-10.00) X 10*3/uL RBC 3.20 L (4.10-5.20) X 10*6/uL Hgb 8.3 L (12.0-15.0) g/dL Hct 27.3 L (37.2-46.3) % MCH 25.9 L (27.0-32.0) pg MCHC 30.4 L (32.0-37.0) g/dL RDW 15.9 H (11.5-14.5) % Immature Gran # 0.05 H (0.00-0.04) X 10*3/uL Chloride 112 H (96-109) mmol/L Carbon Dioxide 19.2 L (21.6-31.8) mmol/L Creatinine 1.7 H (0.6-1.5) mg/dL Est GFR (CKD-EPI) 32 L (>=60) BUN/Creatinine Ratio 7.82 L (12.00-20.00) Ratio Glucose 185 H (70-110) mg/dL Calcium 8.1 L (8.7-10.3) mg/dL Microbiology - Last 24 Hours (Table) 07/30/24 08:30 Stool Culture - Preliminary Stool 07/31/24 15:25 Blood Culture - Preliminary Blood Assessment and Plan (1) Leukocytosis Current Visit: Yes Status: Acute Code(s): D72.829 - ELEVATED WHITE BLOOD CELL COUNT, UNSPECIFIED SNOMED Code(s): 394227081 (2) Allergy to cephalosporin Current Visit: Yes Status: Acute Code(s): Z88.1 - ALLERGY STATUS TO OTHER ANTIBIOTIC AGENTS SNOMED Code(s): 374154102 (3) Gastroenteritis Current Visit: No Status: Acute Code(s): K52.9 - NONINFECTIVE GASTROENTERITIS AND COLITIS, UNSPECIFIED SNOMED Code(s): 68355804 Plan: 1patient presented to hospital with nausea vomiting and diarrhea that has been going on for almost a week and this patient did have elevated white count but no fever with a question of infectious versus noninfectious etiology patient did not have any antibiotic exposure and stool for C. difficile negative however stool lactoferrin came back positive. 2cephalexin allergy that will limit the number of antibiotic safe to use 3Pt to continue with the Levaquin and Flagyl while waiting for the culture to finalize yesenia with Questran for symptomatic relief Dictation was produced using [employer] dictation software. please excuse any grammatical, word or spelling errors.
--- NOTE | 2024-08-03 09:52 | P.PN ---
Subjective HISTORY OF PRESENT ILLNESS: This is a 73-year-old female with a past medical history significant for paroxysmal atrial fibrillation, recent A-fib ablation, hypertension, and bowel obstruction with previous bowel resection. Patient follows with a internet site designer and scrap picker at [facility]. We have been asked to see the patient in consultation for atrial fibrillation. Patient examined at the bedside. Patient states she initially came to the ER on 07/27/2024 due to generalized weakness, and diarrhea. She states she was given IV fluids and discharged home. She states that over the next couple days her symptoms worsened. She reports continued nausea, vomiting, and diarrhea. This prompted her to come back to the hospital for further evaluation. The patient currently denies any chest pain or pressure. She denies any shortness of breath. She is maintaining sinus mechanism at the time of examination. She reports that she underwent A-fib ablation on July 20, 2024 at [facility]. She states that she was initially diagnosed with A-fib about 5 or 6 years ago. She states that sometimes she does not have palpitations and is unsure when she is actually in atrial fibrillation. She denies having a recent stress test or echocardiogram. 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 Patient states that she was scheduled to see a GI physician tomorrow secondary to her ongoing symptoms. She does report having a colonoscopy a few months ago and an endoscopy last year. Patient was found to have acute kidney injury on admission with creatinine of 2.63. Repeat today is 2.2. DIAGNOSTICS: - EKG reveals sinus mechanism with nonspecific ST-T wave changes. No signs of acute ischemia. - Chest xray low lung volumes with generalized hazy appearance which could represent atelectasis versus pulmonary edema - Laboratory data: WBC 13.52. Hemoglobin 9.9. Platelet count 474. Sodium 141. Potassium 4.1. BUN 20. Creatinine 2.2. - Current home cardiac medications include digoxin 125 mcg daily, losartan 150 mg daily, metoprolol tartrate 100 mg twice a day, Xarelto 20 mg daily 08/01/2024 Patient examined this morning at the bedside. Patient denies chest pain or pressure. Denies SOB. She reports improvement in her diarrhea. Patient states all of her symptoms have been present for about 1 month and denies having any new symptoms after her ablation. General surgery has been consulted due to CT findings revealing subcutaneous collection in the left flank measuring 2.2 x 4.5 cm. General surgery discontinued patient's Xarelto. Patient's blood pressures elevated this morning at 181/77. Echocardiogram completed revealing ejection fraction 55 to 60%, mild pulmonary hypertension, and mild tricuspid regurgitation. 08/02/2024 Patient examined this morning at the bedside. Patient currently denies chest pain or pressure. She denies shortness of breath. She continues to report some abdominal discomfort with diarrhea although overall improved. She is also reporting sinus congestion this morning. Blood pressure remains elevated with a systolic in the 160s. 08/03/2024 Patient examined this morning at the bedside. Patient continues to report an upset stomach and states that she has been throwing up a lot overnight. She denies any chest pain or pressure. She denies any shortness of breath. Telemetry reveals sinus mechanism. Blood pressure slightly elevated this morning at 163/82 which may be secondary to nausea and vomiting. Previous blood pressure readings in the 130s. Kidney function continues to improve. Creatinine today 1.45. PHYSICAL EXAM: VITAL SIGNS: Reviewed. GENERAL: Well-developed in no acute distress. HEENT: Head is normocephalic. Pupils are equal, round. Sclerae anicteric. Mucous membranes of the mouth are moist. Neck supple. No JVD or thyromegaly LUNGS: Respirations even and unlabored. Lungs essentially clear to auscultation bilaterally. HEART: Regular rate and rhythm. S1 and S2 heard. ABDOMEN: Soft. Nondistended. Nontender. EXTREMITIES: Normal range of motion. No clubbing or cyanosis. Peripheral pulses intact. No lower extremity edema NEUROLOGIC: Awake and alert. Oriented x 3. ASSESSMENT: Nausea, Vomiting, diarrhea, x 2 weeks, etiology unclear Paroxysmal atrial fibrillation Recent A-fib ablation, 07/20/2024 at [facility] Acute kidney injury, improving Hypertension History of bowel obstruction with previous bowel resection Obesity: BMI 41.8 Possible left flank hematoma measuring 2.2 x 4.[address], Xarelto discontinued per general surgery PLAN: Continue current cardiac medications Typically, Tikosyn is discontinued after cardiac ablation. However patient believes she is still taking this. Awaiting discharge records from her ablation at [facility]. Patient to discuss this medication with her primary internet site designer at her follow-up appointment. Patient is stable from a cardiac perspective Further recommendations pending patient course Nurse practitioner note has been reviewed by physician. Signing provider agrees with the documented findings, assessment, and plan of care documented by DISMANTLER as a scribe. Objective - Vital Signs Vital signs: Vital Signs Temp 98.3 F 08/03/24 07:00 Pulse 66 08/03/24 07:00 Resp 16 08/03/24 07:00 BP 163/82 08/03/24 07:00 Pulse Ox 96 08/03/24 07:00 FiO2 Intake & Output 08/02/24 08/03/24 08/03/24 18:59 06:59 18:59 Intake Total 480 118 Balance 480 118 Intake: Intake, IV Titration 480 Amount Sodium Chloride 0.9% 1, 480 000 ml @ 40 mls/hr IV . Q24H [facility] Rx#:[id number] Oral 118 Other: # Voids 3 - Labs CBC & Chem 7: 08/03/24 03:46 08/03/24 03:46 Labs: Abnormal Lab Results - Last 24 Hours (Table) 08/02/24 08/02/24 08/02/24 Range/Units 05:21 05:21 05:21 WBC 10.97 H (4.50-10.00) X 10*3/uL RBC 3.20 L (4.10-5.20) X 10*6/uL Hgb 8.3 L (12.0-15.0) g/dL Hct 27.3 L (37.2-46.3) % MCH 25.9 L (27.0-32.0) pg MCHC 30.4 L (32.0-37.0) g/dL RDW 15.9 H (11.5-14.5) % Immature Gran # 0.05 H (0.00-0.04) X 10*3/uL ESR 57 H (0-30) mm/Hr Potassium (3.5-5.1) mmol/L Chloride 112 H (96-109) mmol/L Carbon Dioxide 19.2 L (21.6-31.8) mmol/L Creatinine 1.7 H (0.6-1.5) mg/dL Est GFR (CKD-EPI) 32 L (>=60) BUN/Creatinine Ratio 7.82 L (12.00-20.00) Ratio Glucose 185 H (70-110) mg/dL Calcium 8.1 L (8.7-10.3) mg/dL Magnesium (1.6-2.3) mg/dL C-Reactive Protein (0.00-0.80) mg/dL Total Protein (6.3-8.2) g/dL Albumin (3.5-5.0) g/dL 08/02/24 08/03/24 08/03/24 Range/Units 05:21 03:46 03:46 WBC (4.50-10.00) X 10*3/uL RBC 3.21 L (4.10-5.20) X 10*6/uL Hgb 8.4 L (12.0-15.0) g/dL Hct 26.6 L (37.2-46.3) % MCH (27.0-32.0) pg MCHC (32.0-37.0) g/dL RDW 15.6 H (11.5-14.5) % Immature Gran # (0.00-0.04) X 10*3/uL ESR (0-30) mm/Hr Potassium 3.1 L (3.5-5.1) mmol/L Chloride 116 H (96-109) mmol/L Carbon Dioxide 21 L (21.6-31.8) mmol/L Creatinine 1.45 H (0.6-1.5) mg/dL Est GFR (CKD-EPI) (>=60) BUN/Creatinine Ratio (12.00-20.00) Ratio Glucose 179 H (70-110) mg/dL Calcium 8.3 L (8.7-10.3) mg/dL Magnesium 1.3 L (1.6-2.3) mg/dL C-Reactive Protein 5.70 H (0.00-0.80) mg/dL Total Protein 5.1 L (6.3-8.2) g/dL Albumin 2.5 L (3.5-5.0) g/dL Microbiology - Last 24 Hours (Table) 07/30/24 08:30 Stool Culture - Final Stool 07/31/24 15:25 Blood Culture - Preliminary Blood
--- NOTE | 2024-08-03 10:46 | P.PN ---
Subjective Patient is seen in follow-up for acute kidney injury. Renal function improving. Denies chest pain or shortness of breath. On IV fluids. Has been voiding. Tolerating regular diet. Did have an episode of vomiting this morning. Vital signs are stable. General: No acute distress. HEENT: Head exam is unremarkable. LUNGS: No audible rhonchi or wheezes. HEART: Rate and Rhythm are regular. ABDOMEN: Nontender, obese. EXTREMITITES: 1+ edema. Objective - Vital Signs Vital signs: Vital Signs Temp 98.3 F 08/03/24 07:00 Pulse 66 08/03/24 07:00 Resp 16 08/03/24 07:00 BP 163/82 08/03/24 07:00 Pulse Ox 96 08/03/24 07:00 FiO2 Intake & Output 08/02/24 08/03/24 08/03/24 18:59 06:59 18:59 Intake Total 480 118 Balance 480 118 Intake: Intake, IV Titration 480 Amount Sodium Chloride 0.9% 1, 480 000 ml @ 40 mls/hr IV . Q24H [facility] Rx#:[id number] Oral 118 Other: # Voids 3 - Labs CBC & Chem 7: 08/03/24 03:46 08/03/24 09:49 Labs: Abnormal Lab Results - Last 24 Hours (Table) 08/02/24 08/02/24 08/02/24 Range/Units 05:21 05:21 05:21 WBC 10.97 H (4.50-10.00) X 10*3/uL RBC 3.20 L (4.10-5.20) X 10*6/uL Hgb 8.3 L (12.0-15.0) g/dL Hct 27.3 L (37.2-46.3) % MCH 25.9 L (27.0-32.0) pg MCHC 30.4 L (32.0-37.0) g/dL RDW 15.9 H (11.5-14.5) % Immature Gran # 0.05 H (0.00-0.04) X 10*3/uL ESR 57 H (0-30) mm/Hr Potassium (3.5-5.1) mmol/L Chloride 112 H (96-109) mmol/L Carbon Dioxide 19.2 L (21.6-31.8) mmol/L Creatinine 1.7 H (0.6-1.5) mg/dL Est GFR (CKD-EPI) 32 L (>=60) BUN/Creatinine Ratio 7.82 L (12.00-20.00) Ratio Glucose 185 H (70-110) mg/dL Calcium 8.1 L (8.7-10.3) mg/dL Magnesium (1.6-2.3) mg/dL C-Reactive Protein (0.00-0.80) mg/dL Total Protein (6.3-8.2) g/dL Albumin (3.5-5.0) g/dL 08/02/24 08/03/24 08/03/24 Range/Units 05:21 03:46 03:46 WBC (4.50-10.00) X 10*3/uL RBC 3.21 L (4.10-5.20) X 10*6/uL Hgb 8.4 L (12.0-15.0) g/dL Hct 26.6 L (37.2-46.3) % MCH (27.0-32.0) pg MCHC (32.0-37.0) g/dL RDW 15.6 H (11.5-14.5) % Immature Gran # (0.00-0.04) X 10*3/uL ESR (0-30) mm/Hr Potassium 3.1 L (3.5-5.1) mmol/L Chloride 116 H (96-109) mmol/L Carbon Dioxide 21 L (21.6-31.8) mmol/L Creatinine 1.45 H (0.6-1.5) mg/dL Est GFR (CKD-EPI) (>=60) BUN/Creatinine Ratio (12.00-20.00) Ratio Glucose 179 H (70-110) mg/dL Calcium 8.3 L (8.7-10.3) mg/dL Magnesium 1.3 L (1.6-2.3) mg/dL C-Reactive Protein 5.70 H (0.00-0.80) mg/dL Total Protein 5.1 L (6.3-8.2) g/dL Albumin 2.5 L (3.5-5.0) g/dL Microbiology - Last 24 Hours (Table) 07/30/24 08:30 Stool Culture - Final Stool 07/31/24 15:25 Blood Culture - Preliminary Blood Assessment and Plan Plan: Assessment: 1. Acute kidney injury secondary to ATN secondary to hypovolemia and further worsen with the use of Lasix. Creatinine 2.63 on admission and improved to 1.45 today. Unknown baseline renal function. Creatinine noted to be 1.53 dated July 27, 2024. No hydronephrosis noted on kidney ultrasound. UA fairly benign. 2. Metabolic acidosis secondary to acute kidney injury and IV fluids. On oral bicarb. Better. 3. Benign hypertension. 4. History of A-fib status post ablation. 5. Nausea vomiting and diarrhea. Possibly gastroenteritis. Symptoms seem to have improved. 6. Lower extremity edema. Plan: Hep-Lock IV fluids. Lasix 40 mg IV once today. Encouraged oral intake. Avoid nephrotoxins. Continue to monitor renal function and urine output.
[2024-08-03 11:13] LABS: % Iron Saturation 6.27 (12.00-45.00); Ferritin 49.7 ng/mL (10.0-291.0)
[2024-08-03] MEDS: FUROSEMIDE 10 MG/ML 4 ML VIAL IV STA (11:15)
[2024-08-03] MEDS: POTASSIUM CHLORIDE ER 20 MEQ TAB.ER PO STA (11:15)
[2024-08-03 13:12] LABS: C Reactive Protein 4.6 mg/dL (<1.0)
--- NOTE | 2024-08-03 13:56 | P.PN ---
Subjective Progress Note Date: 08/03/24 Principal diagnosis: This is a pleasant 73-year-old female with past medical history including atrial fibrillation who recently underwent cardiac ablation, hypertension, and morbid obesity who presented 3 days ago with complaints of nausea vomiting and left- sided abdominal pain. States she has had nausea vomiting and some diarrhea for about a week now. She denied any blood in her stool. No hematemesis. States diarrhea has improved nausea and vomiting is improving although she did have a emesis after breakfast this morning. Ate a small amount of lunch and states she has been able to hold it down. Abdominal pain is improved. She had a CT of the abdomen pelvis that reported a left flank subcutaneous collection consider possible hematoma. Patient is on Xarelto for atrial fibrillation. General surgery was consulted with no plans for surgical intervention believe could possibly be related to mild trauma. Patient does follow with a outside upholsterer out of [place] Dr. Gracia which she states she had a colonoscopy 2 months ago and an EGD within the last year. She does not recall any abnormal findings. Patient has been afebrile. Today's labs WBC 10.9 hemoglobin 8.3 platelet count 353,000 sodium 143 potassium 3.5 BUN 13 creatinine 1.7 magnesium 1.5 stool Cryptosporidium and Giardia negative C. difficile negative and stool cultures negative. 08/03/2024 Patient seen and examined today as a follow-up. She states abdominal pain improved. Diarrhea improved. Still having some nausea and vomiting however she states it is mostly phlegm and sputum. States that she has seen ENT in the past and they said that she has a lot of thick mucus. Also reviewed notes from her GI doctors office Dr. Griffin which she had a recent visit on 07/06/2024 which r eported chronic epigastric pain for years, nausea with dysphagia. She underwent EGD in May 2023 with irregular Z-line's, fundal gland polyp and presbyesophagus. And reportedly in 2020 EGD with findings of SIBO. Currently symptomatically treating. Also underwent colonoscopy on 03/22/2024 with findings of moderate diverticulosis and polyps status post polypectomy. Objective - Vital Signs Vital signs: Vital Signs Temp 98.3 F 08/03/24 07:00 Pulse 66 08/03/24 07:00 Resp 16 08/03/24 07:00 BP 163/82 08/03/24 07:00 Pulse Ox 96 10/10/24 07:00 FiO2 Intake & Output 08/02/24 08/03/24 08/03/24 18:59 06:59 18:59 Intake Total 480 118 Balance 480 118 Intake: Intake, IV Titration 480 Amount Sodium Chloride 0.9% 1, 480 000 ml @ 40 mls/hr IV . Q24H [facility] Rx#:[id number] Oral 118 Other: # Voids 3 - Exam General appearance: The patient is alert, oriented, appears in no acute distress. Morbidly obese. HET: Head is normocephalic and atraumatic. Conjunctiva pink. Sclera anicteric. Neck: Supple without lymphadenopathy. Abdomen: Soft, nontender, nondistended. Extremities: Normal skin color and turgor. No pedal edema Skin: No rashes, no jaundice Neurological: No focal deficits. Alert and oriented. - Labs CBC & Chem 7: 08/03/24 03:46 08/03/24 09:49 Labs: Abnormal Lab Results - Last 24 Hours (Table) 08/02/24 08/02/24 08/02/24 Range/Units 05:21 05:21 05:21 WBC 10.97 H (4.50-10.00) X 10*3/uL RBC 3.20 L (4.10-5.20) X 10*6/uL Hgb 8.3 L (12.0-15.0) g/dL Hct 27.3 L (37.2-46.3) % MCH 25.9 L (27.0-32.0) pg MCHC 30.4 L (32.0-37.0) g/dL RDW 15.9 H (11.5-14.5) % Immature Gran # 0.05 H (0.00-0.04) X 10*3/uL ESR 57 H (0-30) mm/Hr Potassium (3.5-5.1) mmol/L Chloride 112 H (96-109) mmol/L Carbon Dioxide 19.2 L (21.6-31.8) mmol/L Creatinine 1.7 H (0.6-1.5) mg/dL Est GFR (CKD-EPI) 32 L (>=60) BUN/Creatinine Ratio 7.82 L (12.00-20.00) Ratio Glucose 185 H (70-110) mg/dL Calcium 8.1 L (8.7-10.3) mg/dL Magnesium (1.6-2.3) mg/dL C-Reactive Protein (0.00-0.80) mg/dL Total Protein (6.3-8.2) g/dL Albumin (3.5-5.0) g/dL 08/02/24 08/03/24 08/03/24 Range/Units 05:21 03:46 03:46 WBC (4.50-10.00) X 10*3/uL RBC 3.21 L (4.10-5.20) X 10*6/uL Hgb 8.4 L (12.0-15.0) g/dL Hct 26.6 L (37.2-46.3) % MCH (27.0-32.0) pg MCHC (32.0-37.0) g/dL RDW 15.6 H (11.5-14.5) % Immature Gran # (0.00-0.04) X 10*3/uL ESR (0-30) mm/Hr Potassium 3.1 L (3.5-5.1) mmol/L Chloride 116 H (96-109) mmol/L Carbon Dioxide 21 L (21.6-31.8) mmol/L Creatinine 1.45 H (0.6-1.5) mg/dL Est GFR (CKD-EPI) (>=60) BUN/Creatinine Ratio (12.00-20.00) Ratio Glucose 179 H (70-110) mg/dL Calcium 8.3 L (8.7-10.3) mg/dL Magnesium 1.3 L (1.6-2.3) mg/dL C-Reactive Protein 5.70 H (0.00-0.80) mg/dL Total Protein 5.1 L (6.3-8.2) g/dL Albumin 2.5 L (3.5-5.0) g/dL Microbiology - Last 24 Hours (Table) 07/30/24 08:30 Stool Culture - Final Stool 07/31/24 15:25 Blood Culture - Preliminary Blood Assessment and Plan (1) Nausea and vomiting Narrative/Plan: 73-year-old female with 1 week duration nausea vomiting and diarrhea which is improving presented to the hospital. She also had left flank pain with CT evidence of fluid collection possible hematoma/trauma which is being followed by general surgery with no plans for surgical intervention. Patient does follow with a outside upholsterer in [facility] and he had recent colonoscopy and EGD. She was admitted with evidence of leukocytosis, no fevers and likely dealing with viral gastroenteritis. Stool cultures all negative, C. difficile negative. After further discussion with patient sounds like most of her vomiting is actually more like sputum. This has been an ongoing chronic condition for her that she has been seeing her outside upholsterer for. However due to continued complaints of symptoms patient and primary medical team would like endoscopic evaluation. Will plan for upper endoscopy tomorrow. Hold anticoagulation. Current Visit: Yes Status: Acute Code(s): R11.2 - NAUSEA WITH VOMITING, UNSPECIFIED SNOMED Code(s): 08880825 (2) Diarrhea Current Visit: Yes Status: Acute Code(s): R19.7 - DIARRHEA, UNSPECIFIED SNOMED Code(s): 23130093 (3) Gastroenteritis Current Visit: No Status: Acute Code(s): K52.9 - NONINFECTIVE GASTROENTERITIS AND COLITIS, UNSPECIFIED SNOMED Code(s): 58014527 (4) Hypomagnesemia Current Visit: No Status: Acute Code(s): E83.42 - HYPOMAGNESEMIA SNOMED Code(s): 077566633 Plan: 1. Continue symptomatic and supportive care 2. N.p.o. after midnight 3. Stool cultures, C. difficile all ordered and reviewed 4. Hold anticoagulation 5. Will plan for upper endoscopy tomorrow afternoon 6. Continue antiemetics as needed, continue Protonix for GI prophylaxis Thank you for this consultation, we will continue to follow. Dr. Damian Roger I agree with the dictator's note, documented as a scribe by Shyla Sprague.
--- NOTE | 2024-08-03 14:53 | P.PN ---
Subjective Progress Note Date: 08/03/24 Principal diagnosis: Reason for follow-up is acute gastroenteritis/infection Patient is a 73-year-old female with a past medical history significant for hypertension atrial fibrillation, presenting to the hospital for evaluation of nausea vomiting left abdominal pain and diarrhea patient did have a CT head did not show any colitis concerning for left flank subcutaneous collection possible hematoma seen by surgery no drainage. On today's evaluation that is 08/03/2024, patient has been afebrile, patient is breathing comfortably and is currently on room air, patient denies having any significant cough no chest pain, patient still complaining of nausea did have an episode of vomiting last night abdominal pain has decreased and resolution of diarrhea. Patient white count is 10.6 creatinine is 1.45 stool for C. difficile came back negative Objective - Vital Signs Vital signs: Vital Signs Temp 98.1 F 08/03/24 12:50 Pulse 63 08/03/24 12:50 Resp 16 08/03/24 12:50 BP 141/69 08/03/24 12:50 Pulse Ox 96 08/03/24 12:50 FiO2 Intake & Output 08/02/24 08/03/24 08/03/24 18:59 06:59 18:59 Intake Total 480 358 Balance 480 358 Weight 124.738 kg Intake: Intake, IV Titration 480 Amount Sodium Chloride 0.9% 1, 480 000 ml @ 40 mls/hr IV . Q24H [facility] Rx#:[id number] Oral 358 Other: # Voids 3 - Exam GENERAL DESCRIPTION: An elderly female lying in bed in no distress RESPIRATORY SYSTEM: Unlabored breathing , decreased breath sounds at bases HEART: S1 S2 regular rate and rhythm , ABDOMEN: Soft , no tenderness EXTREMITIES: No edema feet - Labs CBC & Chem 7: 08/03/24 03:46 08/03/24 09:49 Labs: Abnormal Lab Results - Last 24 Hours (Table) 08/02/24 08/02/24 08/02/24 Range/Units 05:21 05:21 05:21 RBC (3.80-5.40) m/uL Hgb (11.4-16.0) gm/dL Hct (34.0-46.0) % RDW (11.5-15.5) % ESR 57 H (0-30) mm/Hr D-Dimer (<0.60) mg/L FEU Potassium (3.5-5.1) mmol/L Chloride (98-107) mmol/L Carbon Dioxide (22-30) mmol/L Creatinine (0.52-1.04) mg/dL Glucose (74-99) mg/dL Calcium (8.4-10.2) mg/dL Magnesium (1.6-2.3) mg/dL Iron 16 L (50-170) UG/DL % Saturation 6.27 L (12.00-45.00) Transferrin 182.0 L (204.0-354.0) mg/dL C-Reactive Protein 5.70 H (0.00-0.80) mg/dL Total Protein (6.3-8.2) g/dL Albumin (3.5-5.0) g/dL 08/03/24 08/03/24 08/03/24 Range/Units 03:46 03:46 12:42 RBC 3.21 L (3.80-5.40) m/uL Hgb 8.4 L (11.4-16.0) gm/dL Hct 26.6 L (34.0-46.0) % RDW 15.6 H (11.5-15.5) % ESR (0-30) mm/Hr D-Dimer 1.00 H (<0.60) mg/L FEU Potassium 3.1 L (3.5-5.1) mmol/L Chloride 116 H (98-107) mmol/L Carbon Dioxide 21 L (22-30) mmol/L Creatinine 1.45 H (0.52-1.04) mg/dL Glucose 179 H (74-99) mg/dL Calcium 8.3 L (8.4-10.2) mg/dL Magnesium 1.3 L (1.6-2.3) mg/dL Iron (50-170) UG/DL % Saturation (12.00-45.00) Transferrin (204.0-354.0) mg/dL C-Reactive Protein (0.00-0.80) mg/dL Total Protein 5.1 L (6.3-8.2) g/dL Albumin 2.5 L (3.5-5.0) g/dL 08/03/24 Range/Units 12:42 RBC (3.80-5.40) m/uL Hgb (11.4-16.0) gm/dL Hct (34.0-46.0) % RDW (11.5-15.5) % ESR (0-30) mm/Hr D-Dimer (<0.60) mg/L FEU Potassium (3.5-5.1) mmol/L Chloride (98-107) mmol/L Carbon Dioxide (22-30) mmol/L Creatinine (0.52-1.04) mg/dL Glucose (74-99) mg/dL Calcium (8.4-10.2) mg/dL Magnesium (1.6-2.3) mg/dL Iron (50-170) UG/DL % Saturation (12.00-45.00) Transferrin (204.0-354.0) mg/dL C-Reactive Protein 4.6 H (0.00-0.80) mg/dL Total Protein (6.3-8.2) g/dL Albumin (3.5-5.0) g/dL Microbiology - Last 24 Hours (Table) 07/30/24 08:30 Stool Culture - Final Stool 07/31/24 15:25 Blood Culture - Preliminary Blood Assessment and Plan (1) Leukocytosis Current Visit: Yes Status: Acute Code(s): D72.829 - ELEVATED WHITE BLOOD CELL COUNT, UNSPECIFIED SNOMED Code(s): 031353937 (2) Allergy to cephalosporin Current Visit: Yes Status: Acute Code(s): Z88.1 - ALLERGY STATUS TO OTHER ANTIBIOTIC AGENTS SNOMED Code(s): 836913509 (3) Gastroenteritis Current Visit: No Status: Acute Code(s): K52.9 - NONINFECTIVE GASTROENTERITIS AND COLITIS, UNSPECIFIED SNOMED Code(s): 41986393 Plan: 1patient presented to hospital with nausea vomiting and diarrhea that has been going on for almost a week and this patient did have elevated white count but no fever with a question of infectious versus noninfectious etiology patient did not have any antibiotic exposure and stool for C. difficile negative however stool lactoferrin came back positive. 2cephalexin allergy that will limit the number of antibiotic safe to use 3patient did have resolution of her diarrhea and white count has normalized still complaining of nausea did episode of vomiting may benefit from EGD discussed with admitting team and the short course of oral Levaquin and Flagyl on discharge Dictation was produced using [employer] software. please excuse any grammatical, word or spelling errors.
[2024-08-03 20:46] LABS: Rheumatoid Factor, Qnt <15 IU/mL (0-15)
[2024-08-03] MEDS: metFORMIN 500 MG TAB PO SCH (20:54)
--- NOTE | 2024-08-03 22:41 | PN ---
PROGRESS NOTE DATE OF SERVICE: 08/03/2024 SUBJECTIVE: This is a 73-year-old woman, who was admitted with multiple complex medical issues, still complaining of abdominal discomfort. The patient had a colonoscopy recently. No chest pain. No palpitation. OBJECTIVE: VITAL SIGNS: Pulse is 66, blood pressure 163/84, respirations 16. CHEST: Clear to auscultation. CARDIOVASCULAR: S1, S2. ABDOMEN: Soft, mild diffuse discomfort. LABORATORY DATA: WBC 10.6, potassium 3.5. CRP is 5.70. Rest of the labs are noted. ASSESSMENT: 1. Severe nausea, vomiting, diarrhea, possibly acute infectious gastroenteritis. 2. Elevated CRP. 3. Acute on chronic renal failure. 4. Severe hypokalemia, present on admission, improved. 5. Acute fibrillation, status post ablation. 6. Hypertension. 7. Multiple complex medical issues. RECOMMENDATIONS: Recommend to continue current medications, continue symptomatic treatment. Otherwise, the patient had elevated CRP and ESR. Recommend Infectious Disease evaluation also. Guarded prognosis. Further recommendations to follow. MMODL / IJN: [id number] /
[2024-08-04] MEDS: hydrALAZINE HCL 50 MG TAB PO SCH (08:28)
[2024-08-04] MEDS: hydrALAZINE HCL 25 MG TAB PO STA (09:02)
[2024-08-04 09:06] LABS: Blood Urea Nitrogen 12.3 mg/dL (9.0-27.0); Calcium 8.2 mg/dL (8.7-10.3); Carbon Dioxide 21.3 mmol/L (21.6-31.8); Chloride 110 mmol/L (96-109); Glucose 180 mg/dL (70-110); Magnesium 1.3 mg/dL (1.5-2.4); Potassium 3.5 mmol/L (3.5-5.5); Sodium 144 mmol/L (135-145)
--- NOTE | 2024-08-04 09:56 | P.PN ---
Subjective HISTORY OF PRESENT ILLNESS: This is a 73-year-old female with a past medical history significant for paroxysmal atrial fibrillation, recent A-fib ablation, hypertension, and bowel obstruction with previous bowel resection. Patient follows with a justice professor and court worker at [facility]. We have been asked to see the patient in consultation for atrial fibrillation. Patient examined at the bedside. Patient states she initially came to the ER on 07/27/2024 due to generalized weakness, and diarrhea. She states she was given IV fluids and discharged home. She states that over the next couple days her symptoms worsened. She reports continued nausea, vomiting, and diarrhea. This prompted her to come back to the hospital for further evaluation. The patient currently denies any chest pain or pressure. She denies any shortness of breath. She is maintaining sinus mechanism at the time of examination. She reports that she underwent A-fib ablation on July 20, 2024 at [facility]. She states that she was initially diagnosed with A-fib about 5 or 6 years ago. She states that sometimes she does not have palpitations and is unsure when she is actually in atrial fibrillation. She denies having a recent stress test or echocardiogram. 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 Patient states that she was scheduled to see a GI physician tomorrow secondary to her ongoing symptoms. She does report having a colonoscopy a few months ago and an endoscopy last year. Patient was found to have acute kidney injury on admission with creatinine of 2.63. Repeat today is 2.2. DIAGNOSTICS: - EKG reveals sinus mechanism with nonspecific ST-T wave changes. No signs of acute ischemia. - Chest xray low lung volumes with generalized hazy appearance which could represent atelectasis versus pulmonary edema - Laboratory data: WBC 13.52. Hemoglobin 9.9. Platelet count 474. Sodium 141. Potassium 4.1. BUN 20. Creatinine 2.2. - Current home cardiac medications include digoxin 125 mcg daily, losartan 150 mg daily, metoprolol tartrate 100 mg twice a day, Xarelto 20 mg daily 08/01/2024 Patient examined this morning at the bedside. Patient denies chest pain or pressure. Denies SOB. She reports improvement in her diarrhea. Patient states all of her symptoms have been present for about 1 month and denies having any new symptoms after her ablation. General surgery has been consulted due to CT findings revealing subcutaneous collection in the left flank measuring 2.2 x 4.5 cm. General surgery discontinued patient's Xarelto. Patient's blood pressures elevated this morning at 181/77. Echocardiogram completed revealing ejection fraction 55 to 60%, mild pulmonary hypertension, and mild tricuspid regurgitation. 08/02/2024 Patient examined this morning at the bedside. Patient currently denies chest pain or pressure. She denies shortness of breath. She continues to report some abdominal discomfort with diarrhea although overall improved. She is also reporting sinus congestion this morning. Blood pressure remains elevated with a systolic in the 160s. 08/03/2024 Patient examined this morning at the bedside. Patient continues to report an upset stomach and states that she has been throwing up a lot overnight. She denies any chest pain or pressure. She denies any shortness of breath. Telemetry reveals sinus mechanism. Blood pressure slightly elevated this morning at 163/82 which may be secondary to nausea and vomiting. Previous blood pressure readings in the 130s. Kidney function continues to improve. Creatinine today 1.45. 08/04/2024 Patient examined this morning the bedside. Patient currently denies any chest pain or pressure. She denies any shortness of breath. She continues to report nausea. She is scheduled to undergo endoscopy today with GI service. PHYSICAL EXAM: VITAL SIGNS: Reviewed. GENERAL: Well-developed in no acute distress. HEENT: Head is normocephalic. Pupils are equal, round. Sclerae anicteric. Mucous membranes of the mouth are moist. Neck supple. No JVD or thyromegaly LUNGS: Respirations even and unlabored. Lungs essentially clear to auscultation bilaterally. HEART: Regular rate and rhythm. S1 and S2 heard. ABDOMEN: Soft. Nondistended. Nontender. EXTREMITIES: Normal range of motion. No clubbing or cyanosis. Peripheral pulses intact. No lower extremity edema NEUROLOGIC: Awake and alert. Oriented x 3. ASSESSMENT: Nausea, Vomiting, diarrhea, x 2 weeks, etiology unclear Paroxysmal atrial fibrillation Recent A-fib ablation, 07/20/2024 at [facility] Acute kidney injury, improving Hypertension History of bowel obstruction with previous bowel resection Obesity: BMI 41.8 Possible left flank hematoma measuring 2.2 x 4.[address], Xarelto discontinued per general surgery Hypokalemia Hypomagnesemia PLAN: Continue current cardiac medications Typically, Tikosyn is discontinued after cardiac ablation. However patient believes she is still taking this. departmental secretary has tried for the past 3 days to obtain a final medication list after patient's ablation from Francia Brown and also from patient's cardiology office without success. Patient to discuss this medication with her primary justice professor at her follow-up appointment. Patient was started on oral magnesium yesterday. However patient's magnesium remains low today at 1.3. Will provide IV supplementation today. Potassium 3.5 today. Replace with 40 mEq K-Dur. Due to patient on Tikosyn, recommend potassium to be maintained at 4.0 or greater and magnesium to be maintained at 2.0 or greater. Increase hydralazine to 100 mg 3 times daily for optimal blood pressure control Patient is scheduled for endoscopy today with GI service. Resume Xarelto postprocedure. Patient is stable from a cardiac perspective We will sign off. Please reconsult if needed. Nurse practitioner note has been reviewed by physician. Signing provider agrees with the documented findings, assessment, and plan of care documented by LEAD ANDROID DEVELOPER as a scribe. Objective - Vital Signs Vital signs: Vital Signs Temp 98.3 F 08/04/24 07:30 Pulse 74 08/04/24 07:30 Resp 16 08/04/24 07:30 BP 171/84 08/04/24 07:30 Pulse Ox 96 08/04/24 07:30 FiO2 Intake & Output 08/03/24 08/04/24 08/04/24 18:59 06:59 18:59 Intake Total 1514 Output Total 500 500 10 Balance 1014 -500 -10 Weight 124.738 kg Intake: Intake, IV Titration 200 Amount Sodium Chloride 0.9% 1, 200 000 ml @ 40 mls/hr IV . Q24H [facility] Rx#:[id number] Oral 1314 Output: Drainage 10 Right Abdomen 10 Urine 500 500 - Labs CBC & Chem 7: 08/03/24 03:46 08/04/24 04:36 Labs: Abnormal Lab Results - Last 24 Hours (Table) 08/02/24 08/03/24 08/03/24 Range/Units 05:21 12:42 12:42 ESR 68 H (0-30) mm/Hr D-Dimer 1.00 H (<0.60) mg/L FEU Chloride (96-109) mmol/L Carbon Dioxide (21.6-31.8) mmol/L Anion Gap (4.00-12.00) mmol/L Est GFR (CKD-EPI) (>=60) BUN/Creatinine Ratio (12.00-20.00) Ratio Glucose (70-110) mg/dL Calcium (8.7-10.3) mg/dL Magnesium (1.5-2.4) mg/dL Iron 16 L (50-170) UG/DL % Saturation 6.27 L (12.00-45.00) Transferrin 182.0 L (204.0-354.0) mg/dL C-Reactive Protein (<1.0) mg/dL 08/03/24 08/04/24 Range/Units 12:42 04:36 ESR (0-30) mm/Hr D-Dimer (<0.60) mg/L FEU Chloride 110 H (96-109) mmol/L Carbon Dioxide 21.3 L (21.6-31.8) mmol/L Anion Gap 12.70 H (4.00-12.00) mmol/L Est GFR (CKD-EPI) 37 L (>=60) BUN/Creatinine Ratio 8.20 L (12.00-20.00) Ratio Glucose 180 H (70-110) mg/dL Calcium 8.2 L (8.7-10.3) mg/dL Magnesium 1.3 L (1.5-2.4) mg/dL Iron (50-170) UG/DL % Saturation (12.00-45.00) Transferrin (204.0-354.0) mg/dL C-Reactive Protein 4.6 H (<1.0) mg/dL Microbiology - Last 24 Hours (Table) 07/31/24 15:25 Blood Culture - Preliminary Blood 07/30/24 08:30 Stool Culture - Final Stool
[2024-08-04] MEDS: POTASSIUM CHLORIDE ER 20 MEQ TAB.ER PO STA (10:01)
[2024-08-04] MEDS: MAGNESIUM SULFATE-D5W PMX 1 GM in DEXTROSE/WATER 1 100ML.BAG IVPB SCH (10:01)
--- NOTE | 2024-08-04 10:46 | P.PN ---
Subjective Patient is seen in follow-up for acute kidney injury. Renal function stable. Status post IV Lasix yesterday. Edema improved. Denies chest pain or shortness of breath. Vital signs are stable. General: No acute distress. HEENT: Head exam is unremarkable. LUNGS: No audible rhonchi or wheezes. HEART: Rate and Rhythm are regular. ABDOMEN: Nontender, obese. EXTREMITITES: Trace edema. Objective - Vital Signs Vital signs: Vital Signs Temp 98.3 F 08/04/24 07:30 Pulse 74 08/04/24 07:30 Resp 16 08/04/24 07:30 BP 171/84 08/04/24 07:30 Pulse Ox 96 08/04/24 07:30 FiO2 Intake & Output 08/03/24 08/04/24 08/04/24 18:59 06:59 18:59 Intake Total 1514 Output Total 500 500 10 Balance 1014 -500 -10 Weight 124.738 kg Intake: Intake, IV Titration 200 Amount Sodium Chloride 0.9% 1, 200 000 ml @ 40 mls/hr IV . Q24H [facility] Rx#:[id number] Oral 1314 Output: Drainage 10 Right Abdomen 10 Urine 500 500 - Labs CBC & Chem 7: 08/03/24 03:46 08/04/24 04:36 Labs: Abnormal Lab Results - Last 24 Hours (Table) 08/02/24 08/03/24 08/03/24 Range/Units 05:21 12:42 12:42 ESR 68 H (0-30) mm/Hr D-Dimer 1.00 H (<0.60) mg/L FEU Chloride (96-109) mmol/L Carbon Dioxide (21.6-31.8) mmol/L Anion Gap (4.00-12.00) mmol/L Est GFR (CKD-EPI) (>=60) BUN/Creatinine Ratio (12.00-20.00) Ratio Glucose (70-110) mg/dL Calcium (8.7-10.3) mg/dL Magnesium (1.5-2.4) mg/dL Iron 16 L (50-170) UG/DL % Saturation 6.27 L (12.00-45.00) Transferrin 182.0 L (204.0-354.0) mg/dL C-Reactive Protein (<1.0) mg/dL 08/03/24 08/04/24 Range/Units 12:42 04:36 ESR (0-30) mm/Hr D-Dimer (<0.60) mg/L FEU Chloride 110 H (96-109) mmol/L Carbon Dioxide 21.3 L (21.6-31.8) mmol/L Anion Gap 12.70 H (4.00-12.00) mmol/L Est GFR (CKD-EPI) 37 L (>=60) BUN/Creatinine Ratio 8.20 L (12.00-20.00) Ratio Glucose 180 H (70-110) mg/dL Calcium 8.2 L (8.7-10.3) mg/dL Magnesium 1.3 L (1.5-2.4) mg/dL Iron (50-170) UG/DL % Saturation (12.00-45.00) Transferrin (204.0-354.0) mg/dL C-Reactive Protein 4.6 H (<1.0) mg/dL Microbiology - Last 24 Hours (Table) 07/31/24 15:25 Blood Culture - Preliminary Blood 07/30/24 08:30 Stool Culture - Final Stool Assessment and Plan Plan: Assessment: 1. Acute kidney injury secondary to ATN secondary to hypovolemia and further worsen with the use of Lasix. Creatinine 2.63 on admission and is stable at 1.5 today. Unknown baseline renal function. Creatinine noted to be 1.53 dated July 27, 2024. No hydronephrosis noted on kidney ultrasound. UA fairly benign. 2. Metabolic acidosis secondary to acute kidney injury and IV fluids. On oral bicarb. Better. 3. Benign hypertension. 4. History of A-fib status post ablation. 5. Nausea vomiting and diarrhea. Scheduled for EGD today. 6. Lower extremity edema. Status post IV Lasix August 03, 2024. Improved. 7. Hypomagnesemia from diuresis and n.p.o. status. Plan: Continue off IV fluids. Status post IV Lasix given August 03, 2024. Encouraged oral intake. Avoid nephrotoxins. Continue to monitor renal function and urine output. Replace potassium and magnesium.
[2024-08-04] MEDS: LACTATED RINGERS 1,000 ML IV ONE ×2 (14:16→14:50)
[2024-08-04] MEDS ORDERED: LIDOCAINE 1% INJ 10MG/ML (20 ML MDV) ONE (14:19)
[2024-08-04] MEDS ORDERED: PROPOFOL 10 MG/ML 20 ML VIAL IV ONE (14:19)
--- NOTE | 2024-08-04 14:49 | P.PCN ---
Date of Procedure: 08/04/24 Procedure(s) Performed: BRIEF HISTORY: Patient is a 71-year-old, pleasant, white female scheduled for an upper endoscopy as a part of evaluation of chronic persistent epigastric pain for the last several months duration but has been progressively getting worse in the last 1 week. She was admitted to hospital a week ago for nausea vomiting abdominal pain and diarrhea. Symptoms are gradually improving. Last colonoscopy in February of this year by Dr. Gracia was unremarkable PROCEDURE PERFORMED: Esophagogastroduodenoscopy with biopsy. PREOPERATIVE DIAGNOSIS: Chronic persistent epigastric pain. IV sedation per anesthesia. PROCEDURE: After informed consent was obtained, the patient was brought into [facility] endoscopy unit. IV sedation was administered by Anesthesia under continuous monitoring. Initially the Olympus GIF-140 video endoscope was inserted into the mouth. Esophagus intubated without any difficulty. It was gradually advanced into the stomach and duodenum and carefully examined. The bulb and the second part of the duodenum appeared normal. The scope at this time was withdrawn to the stomach, adequately insufflated with air, and upon careful examination, mucosa of the antrum, body, cardia and the fundus appeared normal. Gastric polyps noted in the body of the stomach measuring between 5 to 6 mm in size which were biopsied. The scope was then withdrawn into the esophagus. The GE junction was located at 39 cm from the incisors. The esophagus appeared normal. There were no erosions or ulcerations seen and the patient tolerated the procedure well. IMPRESSION: 1. Multiple gastric polyps in the gastric body status post biopsies. 2. No evidence of esophagitis or peptic ulcer disease. RECOMMENDATIONS: The findings of this examination were discussed with the patient. She will continue with Protonix 40 mg daily. Advance diet as tolerated..
--- NOTE | 2024-08-04 15:35 | P.PN ---
Subjective Progress Note Date: 08/04/24 Principal diagnosis: Reason for follow-up is acute gastroenteritis/infection Patient is a 73-year-old female with a past medical history significant for hypertension atrial fibrillation, presenting to the hospital for evaluation of nausea vomiting left abdominal pain and diarrhea patient did have a CT head did not show any colitis concerning for left flank subcutaneous collection possible hematoma seen by surgery no drainage. On today's evaluation that is 08/04/2024, Patient is afebrile this morning patient denies having any chest pain shortness of breath or cough, the patient is currently on room air, patient denies any abdominal pain no diarrhea still complain of some nausea but no further vomiting. Patient creatinine is 1.5 no CBC was done today Objective - Vital Signs Vital signs: Vital Signs Temp 97.9 F 08/04/24 13:47 Pulse 70 08/04/24 15:08 Resp 20 08/04/24 15:08 BP 156/82 08/04/24 15:08 Pulse Ox 96 08/04/24 15:08 FiO2 Intake & Output 08/03/24 08/04/24 08/04/24 18:59 06:59 18:59 Intake Total 1514 150 Output Total 500 500 10 Balance 1014 -500 140 Weight 124.738 kg Intake: IV 150 Intake, IV Titration 200 Amount Sodium Chloride 0.9% 1, 200 000 ml @ 40 mls/hr IV . Q24H [facility] Rx#:[id number] Oral 1314 Output: Drainage 10 Right Abdomen 10 Urine 500 500 - Exam GENERAL DESCRIPTION: An elderly female lying in bed in no distress RESPIRATORY SYSTEM: Unlabored breathing , decreased breath sounds at bases HEART: S1 S2 regular rate and rhythm , ABDOMEN: Soft , no tenderness EXTREMITIES: No edema feet - Labs CBC & Chem 7: 08/03/24 03:46 08/04/24 04:36 Labs: Abnormal Lab Results - Last 24 Hours (Table) 08/03/24 08/04/24 Range/Units 12:42 04:36 ESR 68 H (0-30) mm/Hr Chloride 110 H (96-109) mmol/L Carbon Dioxide 21.3 L (21.6-31.8) mmol/L Anion Gap 12.70 H (4.00-12.00) mmol/L Est GFR (CKD-EPI) 37 L (>=60) BUN/Creatinine Ratio 8.20 L (12.00-20.00) Ratio Glucose 180 H (70-110) mg/dL Calcium 8.2 L (8.7-10.3) mg/dL Magnesium 1.3 L (1.5-2.4) mg/dL Microbiology - Last 24 Hours (Table) 07/31/24 15:25 Blood Culture - Preliminary Blood Assessment and Plan (1) Leukocytosis Current Visit: Yes Status: Acute Code(s): D72.829 - ELEVATED WHITE BLOOD C ELL COUNT, UNSPECIFIED SNOMED Code(s): 020345815 (2) Allergy to cephalosporin Current Visit: Yes Status: Acute Code(s): Z88.1 - ALLERGY STATUS TO OTHER ANTIBIOTIC AGENTS SNOMED Code(s): 859390037 (3) Gastroenteritis Current Visit: No Status: Acute Code(s): K52.9 - NONINFECTIVE GASTROENTERITIS AND COLITIS, UNSPECIFIED SNOMED Code(s): 65606177 Plan: 1patient presented to hospital with nausea vomiting and diarrhea that has been going on for almost a week and this patient did have elevated white count but no fever with a question of infectious versus noninfectious etiology patient did not have any antibiotic exposure and stool for C. difficile negative however stool lactoferrin came back positive. 2cephalexin allergy that will limit the number of antibiotic safe to use 3patient did have resolution of her diarrhea and white count has normalized still complaining of nausea, the patient is status post EGD completed by GI with evidence of gastric polyps status post biopsy advising Protonix to continue along with a short course of Levaquin and Flagyl Dictation was produced using [employer] dictation software. please excuse any grammatical, word or spelling errors. Time with Patient: Less than 30
[2024-08-04] MEDS: RIVAROXABAN 20 MG TAB PO SCH (17:43)
--- NOTE | 2024-08-04 21:38 | PN ---
PROGRESS NOTE DATE OF SERVICE: 08/04/2024 SUBJECTIVE: This is a 73-year-old woman, who was admitted with significant nausea, vomiting, diarrhea and possibly acute infectious gastroenteritis, is having very slow improvement. The patient is having multiple symptomatology at this time. Dr. Roger is planning EGD today. The patient had a colonoscopy recently. OBJECTIVE: VITAL SIGNS: Pulse 74, blood pressure 171/82, respirations 16. CHEST: A few scattered rhonchi and crackles. ABDOMEN: Soft. NERVOUS SYSTEM: Nonfocal. LABORATORY DATA: Reviewed. ASSESSMENT: 1. Severe nausea, vomiting, diarrhea, possibly acute infectious gastroenteritis. 2. Elevated CRP. 3. Acute on chronic renal failure. 4. Severe hypokalemia, present on admission, improved. 5. Elevated CRP and sedimentation rate. 6. Atrial fibrillation, status post ablation history. 7. Hypertension. 8. Multiple complex medical issues. RECOMMENDATIONS: Recommend to continue current management and continue symptomatic treatment. Recommend EGD per Dr. Roger as planned. Otherwise, continue the rest of medications. Repeat labs. Overall prognosis guarded because of multiple complex medical issues and further recommendations to follow. Continue with symptomatic treatment. Cultures are negative so far. MMODL / IJN: [id number] /
[2024-08-05 09:30] LABS: BUN/Creat Ratio 9.23 Ratio (12.00-20.00); Calcium 8.4 mg/dL (8.7-10.3); Carbon Dioxide 23.2 mmol/L (21.6-31.8); Chloride 109 mmol/L (96-109); Glucose 177 mg/dL (70-110); Magnesium 1.6 mg/dL (1.5-2.4); Potassium 3.6 mmol/L (3.5-5.5); Sodium 144 mmol/L (135-145)
--- NOTE | 2024-08-05 12:53 | P.PN ---
Subjective Progress Note Date: 08/05/24 Patient is seen in follow-up for acute kidney injury. Renal function stable. Edema improved. Denies chest pain or shortness of breath. Diarrhea started over night. Vital signs are stable. General: No acute distress. HEENT: Head exam is unremarkable. LUNGS: No audible rhonchi or wheezes. HEART: Rate and Rhythm are regular. ABDOMEN: Nontender, obese. EXTREMITITES: Trace edema. Objective - Vital Signs Vital signs: Vital Signs Temp 98.7 F 08/05/24 07:44 Pulse 72 08/05/24 07:44 Resp 17 08/05/24 07:44 BP 166/79 08/05/24 07:44 Pulse Ox 96 08/05/24 07:44 FiO2 Intake & Output 08/04/24 08/05/24 08/05/24 18:59 06:59 18:59 Intake Total 1230 600 Output Total 10 Balance 1220 600 Intake: IV 150 Intake, IV Titration 300 Amount Levofloxacin 500Mg-D5w 100 Pmx 500 mg In Dextrose/ Water 1 100ml.bag @ 100 mls/hr IVPB Q48H [facility] Rx#: [id number] Magnesium Sulfate-D5w Pmx 200 1 gm In Dextrose/Water 1 100ml.bag @ 100 mls/hr IVPB Q1H [facility] Rx#: [id number] Oral 780 600 Output: Drainage 10 Right Abdomen 10 Other: Voiding Method Toilet # Voids 2 2 # Bowel Movements 1 - Labs CBC & Chem 7: 08/03/24 03:46 08/05/24 06:56 Labs: Abnormal Lab Results - Last 24 Hours (Table) 08/05/24 Range/Units 06:56 Est GFR (CKD-EPI) 44 L (>=60) BUN/Creatinine Ratio 9.23 L (12.00-20.00) Ratio Glucose 177 H (70-110) mg/dL Calcium 8.4 L (8.7-10.3) mg/dL Assessment and Plan Assessment: 1. Acute kidney injury secondary to ATN secondary to hypovolemia and further worsen with the use of Lasix. Creatinine 2.63 on admission and is stable at 1.5 today. Unknown baseline renal function. No hydronephrosis noted on kidney ultrasound. UA fairly benign. 2. Metabolic acidosis secondary to acute kidney injury and IV fluids. On oral bicarb. Better. 3. Benign hypertension. 4. History of A-fib status post ablation. 5. Nausea vomiting and diarrhea. Scheduled for EGD today. 6. Lower extremity edema. Status post IV Lasix August 03, 2024. Improved. 7. Hypomagnesemia from diuresis and n.p.o. status. Plan: Continue off IV fluids. Status post IV Lasix given August 03, 2024. Encouraged oral intake. Avoid nephrotoxins. Continue to monitor renal function and urine output.
--- NOTE | 2024-08-05 13:33 | P.PN ---
Subjective This is a pleasant 73 years old female with past medical history of multiple medical problems. Presents initially about a week ago for nausea vomiting and suspected to have acute gastroenteritis and she has been followed by GI general surgery services. She had EGD done yesterday on 08/04 showing multiple gastric polyps s/p biopsy with no evidence of gastritis or peptic ulcer disease However this morning patient still complaining from upper abdominal discomfort and pain and describe it about 2-3/10 in intensity. Also she had loose bowel movement about once yesterday and 2 this morning. She was able to eat little bit. Hemodynamically stable Creatinine improving slightly 1.3 Borderline low magnesium and potassium being replaced She remains on Levaquin, Protonix IV twice per day and Xarelto She has CT of the abdomen pelvis on admission showing marked fatty infiltration of the liver with hepatomegaly and there is suspicion of left fluid collection in the left flank suspicious for hematoma Currently she is on Xarelto, IV Protonix Objective - Vital Signs Vital signs: Vital Signs Temp 98.7 F 08/05/24 07:44 Pulse 72 08/05/24 07:44 Resp 17 08/05/24 07:44 BP 166/79 08/05/24 07:44 Pulse Ox 96 08/05/24 07:44 FiO2 Intake & Output 08/04/24 08/05/24 08/05/24 18:59 06:59 18:59 Intake Total 1230 600 Output Total 10 Balance 1220 600 Intake: IV 150 Intake, IV Titration 300 Amount Levofloxacin 500Mg-D5w 100 Pmx 500 mg In Dextrose/ Water 1 100ml.bag @ 100 mls/hr IVPB Q48H [facility] Rx#: [id number] Magnesium Sulfate-D5w Pmx 200 1 gm In Dextrose/Water 1 100ml.bag @ 100 mls/hr IVPB Q1H [facility] Rx#: [id number] Oral 780 600 Output: Drainage 10 Right Abdomen 10 Other: Voiding Method Toilet # Voids 2 2 # Bowel Movements 1 - Exam GENERAL: The patient is alert and oriented x3, not in any acute distress. Well developed, well nourished. HEENT: Pupils are round and equally reacting to light. EOMI. No scleral icterus. No conjunctival pallor. Normocephalic, atraumatic. No pharyngeal erythema. No thyromegaly. CARDIOVASCULAR: S1 and S2 present. No murmurs, rubs, or gallops. PULMONARY: Chest is clear to auscultation, no wheezing , no crackles. ABDOMEN: Soft, nontender, nondistended, normoactive bowel sounds. No palpable organomegaly. MUSCULOSKELETAL: No joint swelling or deformity. EXTREMITIES: No cyanosis, clubbing, or pedal edema. NEUROLOGICAL: Gross neurological examination did not reveal any focal deficits. SKIN: No rashes. no petechiae. - Labs CBC & Chem 7: 08/03/24 03:46 08/05/24 06:56 Labs: Abnormal Lab Results - Last 24 Hours (Table) 08/05/24 Range/Units 06:56 Est GFR (CKD-EPI) 44 L (>=60) BUN/Creatinine Ratio 9.23 L (12.00-20.00) Ratio Glucose 177 H (70-110) mg/dL Calcium 8.4 L (8.7-10.3) mg/dL Assessment and Plan Assessment: Acute gastroenteritis, rule out gallbladder disease. Status post EGD on 08/04 7 multiple gastric polyps s/p biopsy with no peptic ulcer disease or gastritis Acute kidney injury Atrial fibrillation Left flank hematoma Hypertension A-fib and RVR on Xarelto at home. Status post ablation Plan: Continue with IV Protonix We will check gallbladder ultrasound given patient persistent symptoms Continue on Xarelto but check ultrasound of the left flank to assess hematoma On Levaquin with ID team following closely Nephrology team on the case General surgery on the case. GI service signed off the case already Cardiology consult Monitor creatinine [facility] Worker Helper recommend patient follow-up with her primary soubrette regarding her Dofetilide Labs and medication were reviewed.. Continue same treatment. Continue with symptomatic treatment. Resume home medication. Monitor labs and vitals. DVT and GI prophylaxis. Further recommendations as per clinical course of the patient DVT prophylaxis: Xarelto GI Prophylaxis: Ppi Prognosis is guarded
--- NOTE | 2024-08-05 14:54 | P.PN ---
Subjective Progress Note Date: 08/05/24 Principal diagnosis: Reason for follow-up is acute gastroenteritis/infection Patient is a 73-year-old female with a past medical history significant for hypertension atrial fibrillation, presenting to the hospital for evaluation of nausea vomiting left abdominal pain and diarrhea patient did have a CT head did not show any colitis concerning for left flank subcutaneous collection possible hematoma seen by surgery no drainage. On today's evaluation that is 08/05/2024,the patient denies any fever or any chills, patient is breathing comfortably on room air, the patient denies chest pain shortness of breath and no significant cough, patient mention not feeling as good today did have some nausea but no vomiting complaining of diarrhea. Patient did have a creatinine 1.3 no CBC was done today blood culture have been negative so far Objective - Vital Signs Vital signs: Vital Signs Temp 98.7 F 08/05/24 07:44 Pulse 72 08/05/24 08:00 Resp 17 08/05/24 08:00 BP 166/79 08/05/24 07:44 Pulse Ox 96 08/05/24 07:44 FiO2 Intake & Output 08/04/24 08/05/24 08/05/24 18:59 06:59 18:59 Intake Total 1230 600 Output Total 10 Balance 1220 600 Intake: IV 150 Intake, IV Titration 300 Amount Levofloxacin 500Mg-D5w 100 Pmx 500 mg In Dextrose/ Water 1 100ml.bag @ 100 mls/hr IVPB Q48H [facility] Rx#: [id number] Magnesium Sulfate-D5w Pmx 200 1 gm In Dextrose/Water 1 100ml.bag @ 100 mls/hr IVPB Q1H [facility] Rx#: [id number] Oral 780 600 Output: Drainage 10 Right Abdomen 10 Other: Voiding Method Toilet Toilet # Voids 2 2 # Bowel Movements 1 - Exam GENERAL DESCRIPTION: An elderly female lying in bed in no distress RESPIRATORY SYSTEM: Unlabored breathing , decreased breath sounds at bases HEART: S1 S2 regular rate and rhythm , ABDOMEN: Soft , no tenderness EXTREMITIES: No edema feet - Labs CBC & Chem 7: 08/03/24 03:46 08/05/24 06:56 Labs: Abnormal Lab Results - Last 24 Hours (Table) 08/05/24 Range/Units 06:56 Est GFR (CKD-EPI) 44 L (>=60) BUN/Creatinine Ratio 9.23 L (12.00-20.00) Ratio Glucose 177 H (70-110) mg/dL Calcium 8.4 L (8.7-10.3) mg/dL Assessment and Plan (1) Leukocytosis Current Visit: Yes Status: Acute Code(s): D72.829 - ELEVATED WHITE BLOOD CELL COUNT, UNSPECIFIED SNOMED Code(s): 787312146 (2) Allergy to cephalosporin Current Visit: Yes Status: Acute Code(s): Z88.1 - ALLERGY STATUS TO OTHER ANTIBIOTIC AGENTS SNOMED Code(s): 087871856 (3) Gastroenteritis Current Visit: No Status: Acute Code(s): K52.9 - NONINFECTIVE GASTROENTERITIS AND COLITIS, UNSPECIFIED SNOMED Code(s): 87771679 Plan: 1patient presented to hospital with nausea vomiting and diarrhea that has been going on for almost a week and this patient did have elevated white count but no fever with a question of infectious versus noninfectious etiology patient did not have any antibiotic exposure and stool for C. difficile negative however stool lactoferrin came back positive. 2cephalexin allergy that will limit the number of antibiotic safe to use 3patient did have initial resolution of her diarrhea and white count has normalized, patient did have a negative stool culture white count is normal we will go to discontinue Levaquin and Flagyl may be causing some of her symptoms a nd monitor the patient closely off antibiotic Dictation was produced using [employer] dictation software. please excuse any grammatical, word or spelling errors. Time with Patient: Less than 30
[2024-08-05] MEDS: POTASSIUM CHLORIDE ER 20 MEQ TAB.ER PO STA (15:12)
[2024-08-05] MEDS: MAGNESIUM SULFATE-D5W PMX 1 GM in DEXTROSE/WATER 1 100ML.BAG IVPB ONE (15:19)
[2024-08-05] MEDS ORDERED: RIVAROXABAN 20 MG TAB PO SCH (17:30)
[2024-08-05] MEDS: LOPERAMIDE 2 MG CAP PO STA (20:07)
[2024-08-06] MEDS: LOPERAMIDE 2 MG CAP PO PRN (08:22)
[2024-08-06 09:56] LABS: Basophils # (A) 0.04 X 10*3/uL (0.00-0.10); Basophils % (A) 0.4 %; Eosinophils # (A) 0.24 X 10*3/uL (0.04-0.35); Eosinophils % (A) 2.6 %; HGB 8.2 g/dL (12.0-15.0); Lymphocytes # (A) 2.33 X 10*3/uL (0.90-5.00); Lymphocytes % (A) 25.4 %; MCH 24.9 pg (27.0-32.0); MCHC 30.4 g/dL (32.0-37.0); MCV 82.1 FL (80.0-97.0); Mean Platelet Volume 9.8 FL (9.5-12.2); Monocytes # (A) 0.62 X 10*3/uL (0.20-1.00); Monocytes % (A) 6.8 %; NRBC Per 100 WBC 0 X 10*3/uL (0.00-0.01); Neutrophils # (A) 5.89 X 10*3/uL (1.80-7.70); Neutrophils % (A) 64.3 %; Platelet Count 335 X 10*3/uL (140-440); RBC 3.29 X 10*6/uL (4.10-5.20); RDW 16.2 % (11.5-14.5); WBC 9.17 X 10*3/uL (4.50-10.00)
[2024-08-06 10:08] LABS: BUN/Creat Ratio 7.25 Ratio (12.00-20.00); Blood Urea Nitrogen 8.7 mg/dL (9.0-27.0); Calcium 8.2 mg/dL (8.7-10.3); Carbon Dioxide 24.1 mmol/L (21.6-31.8); Chloride 109 mmol/L (96-109); Glucose 170 mg/dL (70-110); Potassium 2.9 mmol/L (3.5-5.5); Sodium 144 mmol/L (135-145)
[2024-08-06] MEDS: POTASSIUM CHLORIDE ER 20 MEQ TAB.ER PO SCH (11:35)
--- NOTE | 2024-08-06 11:35 | P.PN ---
Subjective Progress Note Date: 08/06/24 Patient is seen in follow-up for acute kidney injury. Renal function stable. Edema improved. Denies chest pain or shortness of breath. Diarrhea still present. Vital signs are stable. General: No acute distress. HEENT: Head exam is unremarkable. LUNGS: No audible rhonchi or wheezes. HEART: Rate and Rhythm are regular. ABDOMEN: Nontender, obese. EXTREMITITES: Trace edema. Objective - Vital Signs Vital signs: Vital Signs Temp 98.6 F 08/06/24 07:49 Pulse 71 08/06/24 07:49 Resp 17 08/06/24 07:49 BP 158/81 08/06/24 07:49 Pulse Ox 95 08/06/24 07:49 FiO2 Intake & Output 08/05/24 08/06/24 08/06/24 18:59 06:59 18:59 Intake Total 1080 240 Balance 1080 240 Intake: Oral 1080 240 Other: Voiding Method Toilet Toilet # Voids 3 2 - Labs CBC & Chem 7: 08/06/24 06:45 08/06/24 06:45 Labs: Abnormal Lab Results - Last 24 Hours (Table) 08/06/24 08/06/24 Range/Units 06:45 06:45 RBC 3.29 L (4.10-5.20) X 10*6/uL Hgb 8.2 L (12.0-15.0) g/dL Hct 27.0 L (37.2-46.3) % MCH 24.9 L (27.0-32.0) pg MCHC 30.4 L (32.0-37.0) g/dL RDW 16.2 H (11.5-14.5) % Immature Gran # 0.05 H (0.00-0.04) X 10*3/uL Potassium 2.9 L (3.5-5.5) mmol/L BUN 8.7 L (9.0-27.0) mg/dL Est GFR (CKD-EPI) 48 L (>=60) BUN/Creatinine Ratio 7.25 L (12.00-20.00) Ratio Glucose 170 H (70-110) mg/dL Calcium 8.2 L (8.7-10.3) mg/dL Microbiology - Last 24 Hours (Table) 07/31/24 15:25 Blood Culture - Final Blood Assessment and Plan Assessment: 1. Acute kidney injury secondary to ATN secondary to hypovolemia and further worsen with the use of Lasix. Creatinine 2.63 on admission and is stable at 1.2 today. Unknown baseline renal function. No hydronephrosis noted on kidney ultrasound. UA fairly benign. 2. Metabolic acidosis secondary to acute kidney injury and IV fluids. On oral bicarb. Better. 3. Benign hypertension. 4. History of A-fib status post ablation. 5. Nausea vomiting and diarrhea. Scheduled for EGD today. 6. Lower extremity edema. Status post IV Lasix August 03, 2024. Improved. 7. Hypomagnesemia from diuresis and n.p.o. status. Plan: Continue off IV fluids. Status post IV Lasix given August 03, 2024. Encouraged oral intake. Avoid nephrotoxins. Replace potassium.
--- NOTE | 2024-08-06 16:18 | P.PN ---
Subjective Progress Note Date: 08/06/24 Principal diagnosis: Reason for follow-up is acute gastroenteritis/infection Patient is a 73-year-old female with a past medical history significant for hypertension atrial fibrillation, presenting to the hospital for evaluation of nausea vomiting left abdominal pain and diarrhea patient did have a CT head did not show any colitis concerning for left flank subcutaneous collection possible hematoma seen by surgery no drainage. On today's evaluation that is 08/06/2024,the patient remains to be afebrile, patient is on room air not requiring supplemental oxygen and denies any shortness of breath no chest pain or cough.Patient has been complaining of nausea but no further vomiting, lower abdominal discomfort diarrhea has slowed down but not completely gone. Patient white count is 9.17, creatinine 1.2. Blood and stool culture have been negative Objective - Vital Signs Vital signs: Vital Signs Temp 98.1 F 08/06/24 13:31 Pulse 71 08/06/24 13:31 Resp 17 08/06/24 13:31 BP 133/63 08/06/24 13:31 Pulse Ox 96 08/06/24 13:31 FiO2 Intake & Output 08/05/24 08/06/24 08/06/24 18:59 06:59 18:59 Intake Total 1080 360 Balance 1080 360 Intake: Oral 1080 360 Other: Voiding Method Toilet Toilet # Voids 3 2 - Exam GENERAL DESCRIPTION: An elderly female lying in bed in no distress RESPIRATORY SYSTEM: Unlabored breathing , decreased breath sounds at bases HEART: S1 S2 regular rate and rhythm , ABDOMEN: Soft , no tenderness EXTREMITIES: No edema feet - Labs CBC & Chem 7: 08/06/24 06:45 08/06/24 06:45 Labs: Abnormal Lab Results - Last 24 Hours (Table) 08/06/24 08/06/24 Range/Units 06:45 06:45 RBC 3.29 L (4.10-5.20) X 10*6/uL Hgb 8.2 L (12.0-15.0) g/dL Hct 27.0 L (37.2-46.3) % MCH 24.9 L (27.0-32.0) pg MCHC 30.4 L (32.0-37.0) g/dL RDW 16.2 H (11.5-14.5) % Immature Gran # 0.05 H (0.00-0.04) X 10*3/uL Potassium 2.9 L (3.5-5.5) mmol/L BUN 8.7 L (9.0-27.0) mg/dL Est GFR (CKD-EPI) 48 L (>=60) BUN/Creatinine Ratio 7.25 L (12.00-20.00) Ratio Glucose 170 H (70-110) mg/dL Calcium 8.2 L (8.7-10.3) mg/dL Microbiology - Last 24 Hours (Table) 07/31/24 15:25 Blood Culture - Final Blood Assessment and Plan (1) Leukocytosis Current Visit: Yes Status: Acute Code(s): D72.829 - ELEVATED WHITE BLOOD C ELL COUNT, UNSPECIFIED SNOMED Code(s): 835333310 (2) Allergy to cephalosporin Current Visit: Yes Status: Acute Code(s): Z88.1 - ALLERGY STATUS TO OTHER ANTIBIOTIC AGENTS SNOMED Code(s): 986007939 (3) Gastroenteritis Current Visit: No Status: Acute Code(s): K52.9 - NONINFECTIVE GASTROENTERITIS AND COLITIS, UNSPECIFIED SNOMED Code(s): 94682436 Plan: 1patient presented to hospital with nausea vomiting and diarrhea that has been going on for almost a week and this patient did have elevated white count but no fever with a question of infectious versus noninfectious etiology patient did not have any antibiotic exposure and stool for C. difficile negative however stool lactoferrin came back positive. 2cephalexin allergy that will limit the number of antibiotic safe to use 3patient remains to be afebrile white count is normal culture have been negative will monitor patient closely off antibiotics Dictation was produced using [employer] dictation software. please excuse any grammatical, word or spelling errors. Time with Patient: Less than 30
--- NOTE | 2024-08-06 16:59 | P.PN ---
Subjective This is a pleasant 73 years old female with past medical history of multiple medical problems. Presents initially about a week ago for nausea vomiting and suspected to have acute gastroenteritis and she has been followed by GI general surgery services. She had EGD done yesterday on 08/04 showing multiple gastric polyps s/p biopsy with no evidence of gastritis or peptic ulcer disease However this morning patient still complaining from upper abdominal discomfort and pain and describe it about 2-3/10 in intensity. Also she had loose bowel movement about once yesterday and 2 this morning. She was able to eat little bit. Hemodynamically stable Creatinine improving slightly 1.3 Borderline low magnesium and potassium being replaced She remains on Levaquin, Protonix IV twice per day and Xarelto She has CT of the abdomen pelvis on admission showing marked fatty infiltration of the liver with hepatomegaly and there is suspicion of left fluid collection in the left flank suspicious for hematoma Currently she is on Xarelto, IV Protonix 08/06 Patient did not sleep well because she did not like hospital bed She had abdominal pain after eating and drinking milk normal, no vomiting but has nausea No flank pain after started on Xarelto. Patient instructed to follow-up with Dr. Jimenez PCP in 1 week after discharge and she agrees, she was instructed to follow-up biopsy results for her EGD and she agrees Objective - Vital Signs Vital signs: Vital Signs Temp 98.6 F 08/06/24 07:49 Pulse 71 08/06/24 07:49 Resp 17 08/06/24 07:49 BP 158/81 08/06/24 07:49 Pulse Ox 95 08/06/24 07:49 FiO2 Intake & Output 08/05/24 08/06/24 08/06/24 18:59 06:59 18:59 Intake Total 1080 Balance 1080 Intake: Oral 1080 Other: Voiding Method Toilet Toilet # Voids 3 2 - Exam GENERAL: The patient is alert and oriented x3, not in any acute distress. Well developed, well nourished. HEENT: Pupils are round and equally reacting to light. EOMI. No scleral icterus. No conjunctival pallor. Normocephalic, atraumatic. No pharyngeal erythema. No thyromegaly. CARDIOVASCULAR: S1 and S2 present. No murmurs, rubs, or gallops. PULMONARY: Chest is clear to auscultation, no wheezing , no crackles. ABDOMEN: Soft, nontender, nondistended, normoactive bowel sounds. No palpable organomegaly. MUSCULOSKELETAL: No joint swelling or deformity. EXTREMITIES: No cyanosis, clubbing, or pedal edema. NEUROLOGICAL: Gross neurological examination did not reveal any focal deficits. SKIN: No rashes. no petechiae. - Labs CBC & Chem 7: 08/06/24 06:45 08/06/24 06:45 Labs: Microbiology - Last 24 Hours (Table) 07/31/24 15:25 Blood Culture - Final Blood Assessment and Plan Assessment: Acute gastroenteritis, rule out gallbladder disease. Status post EGD on 08/04 multiple gastric polyps s/p biopsy with no peptic ulcer disease or gastritis Acute kidney injury Atrial fibrillation Left flank hematoma Hypertension A-fib and RVR on Xarelto at home. Status post ablation Plan: Continue with IV Protonix We will check gallbladder ultrasound given patient persistent symptoms Continue on Xarelto but check ultrasound of the left flank to assess hematoma On Levaquin with ID team following closely Nephrology team on the case General surgery on the case. GI service signed off the case already Cardiology consult Monitor creatinine Chemical Dependency Counselor recommend patient follow-up with her primary lunchroom monitor regarding her Dofetilide Labs and medication were reviewed.. Continue same treatment. Continue with symptomatic treatment. Resume home medication. Monitor labs and vitals. DVT and GI prophylaxis. Further recommendations as per clinical course of the patient DVT prophylaxis: Xarelto GI Prophylaxis: Ppi Prognosis is guarded
[2024-08-07 10:50] LABS: African American GFR (CKD) 52 (>60 ml/min/1.73 sqM); Anion Gap 6 mmol/L; Blood Urea Nitrogen 9 mg/dL (7-17); Calcium 8.5 mg/dL (8.4-10.2); Carbon Dioxide 28 mmol/L (22-30); Chloride 110 mmol/L (98-107); Glucose 216 mg/dL (74-99); Magnesium 1.4 mg/dL (1.6-2.3); Non-African American GFR(CKD) 45 (>60 ml/min/1.73 sqM); Potassium 3.4 mmol/L (3.5-5.1); Sodium 144 mmol/L (137-145)
[2024-08-07] MEDS: MAGNESIUM SULFATE-D5W PMX 1 GM in DEXTROSE/WATER 1 100ML.BAG IVPB ONE (11:51)
[2024-08-07] MEDS: POTASSIUM CHLORIDE ER 10 MEQ TAB.ER.PRT PO STA (11:51)
--- NOTE | 2024-08-07 12:45 | P.PN ---
Subjective Progress Note Date: 08/07/24 Principal diagnosis: Reason for follow-up is acute gastroenteritis/infection Patient is a 73-year-old female with a past medical history significant for hypertension atrial fibrillation, presenting to the hospital for evaluation of nausea vomiting left abdominal pain and diarrhea patient did have a CT head did not show any colitis concerning for left flank subcutaneous collection possible hematoma seen by surgery no drainage. On today's evaluation that is 08/07/2024, the patient continues to be afebrile, the patient is on room air and breathing comfortably, the Pt denies having any chest pain or cough, the patient denies having any abdominal pain did have resolution of her nausea vomiting and diarrhea patient mention feeling better wants to go home. Patient did have a creatinine of 1.21 white count was 9.17 of yesterday blood and stool culture have been negative Objective - Vital Signs Vital signs: Vital Signs Temp 98.4 F 08/07/24 07:28 Pulse 77 08/07/24 07:28 Resp 18 08/07/24 07:28 BP 166/81 08/07/24 07:28 Pulse Ox 94 L 08/07/24 07:28 FiO2 Intake & Output 08/06/24 08/07/24 08/07/24 18:59 06:59 18:59 Intake Total 1020 120 Balance 1020 120 Intake: Oral 1020 120 Other: Voiding Method Toilet # Voids 3 3 - Exam GENERAL DESCRIPTION: An elderly female lying in bed in no distress RESPIRATORY SYSTEM: Unlabored breathing , decreased breath sounds at bases HEART: S1 S2 regular rate and rhythm , ABDOMEN: Soft , no tenderness EXTREMITIES: No edema feet - Labs CBC & Chem 7: 08/06/24 06:45 08/07/24 10:26 Labs: Abnormal Lab Results - Last 24 Hours (Table) 08/07/24 Range/Units 10:26 Potassium 3.4 L (3.5-5.1) mmol/L Chloride 110 H (98-107) mmol/L Creatinine 1.21 H (0.52-1.04) mg/dL Glucose 216 H (74-99) mg/dL Magnesium 1.4 L (1.6-2.3) mg/dL Assessment and Plan (1) Leukocytosis Current Visit: Yes Status: Acute Code(s): D72.829 - ELEVATED WHITE BLOOD CELL COUNT, UNSPECIFIED SNOMED Code(s): 284880120 (2) Allergy to cephalosporin Current Visit: Yes Status: Acute Code(s): Z88.1 - ALLERGY STATUS TO OTHER ANTIBIOTIC AGENTS SNOMED Code(s): 341578641 (3) Gastroenteritis Current Visit: No Status: Acute Code(s): K52.9 - NONINFECTIVE GASTROENTERITIS AND COLITIS, UNSPECIFIED SNOMED Code(s): 92522832 Plan: 1patient presented to hospital with nausea vomiting and diarrhea that has been going on for almost a week and this patient did have elevated white count but no fever with a question of infectious versus noninfectious etiology patient did not have any antibiotic exposure and stool for C. difficile negative however stool lactoferrin came back positive. 2cephalexin allergy that will limit the number of antibiotic safe to use 3patient remains to be afebrile white count is normal, patient mention improvement in her GI symptoms currently with no nausea vomiting or diarrhea no need for antibiotic therapy on discharge Dictation was produced using [employer] dictation software. please excuse any grammatical, word or spelling errors. Time with Patient: Less than 30
[2024-08-07 12:59] VITALS: BP 156/81; PULSE 78; RESP 16; TEMP 98.7
[2024-08-07] MEDS: FUROSEMIDE 10 MG/ML 4 ML VIAL IV STA (18:22)
--- NOTE | 2024-08-07 19:08 | P.PN ---
Subjective Patient is seen for follow-up for acute kidney injury. Renal function has improved with serum creatinine down to 1.2 mg/dL. No significant complaints today. Objective - Vital Signs Vital signs: Vital Signs Temp 98.7 F 08/07/24 12:58 Pulse 78 08/07/24 12:58 Resp 16 08/07/24 12:58 BP 156/81 08/07/24 12:58 Pulse Ox 95 08/07/24 12:58 FiO2 Intake & Output 08/07/24 08/07/24 08/08/24 06:59 18:59 06:59 Intake Total 120 840 Balance 120 840 Intake: Oral 120 840 Other: Voiding Method Toilet Toilet # Voids 3 3 - Exam Patient is awake, comfortable, no acute distress. Examination of the heart S1 and S2 Examination of the lungs bilateral breath sounds are heard Abdomen is soft nontender Examination of lower extremities shows no significant edema SPECIAL EDUCATION PARAEDUCATOR exam grossly intact - Labs CBC & Chem 7: 08/06/24 06:45 08/07/24 10:26 Labs: Abnormal Lab Results - Last 24 Hours (Table) 08/07/24 Range/Units 10:26 Potassium 3.4 L (3.5-5.1) mmol/L Chloride 110 H (98-107) mmol/L Creatinine 1.21 H (0.52-1.04) mg/dL Glucose 216 H (74-99) mg/dL Magnesium 1.4 L (1.6-2.3) mg/dL Assessment and Plan Assessment: 1. Acute kidney injury secondary to ATN secondary to hypovolemia and further worsen with the use of Lasix. Creatinine 2.63 on admission and is stable at 1.2 today. Unknown baseline renal function. No hydronephrosis noted on kidney ultrasound. UA fairly benign. 2. Metabolic acidosis secondary to acute kidney injury and IV fluids. On oral bicarb. Better. 3. Benign hypertension. 4. History of A-fib status post ablation. 5. Nausea vomiting and diarrhea. Scheduled for EGD today. 6. Lower extremity edema. Status post IV Lasix August 03, 2024. Improved. 7. Hypomagnesemia from diuresis Plan: Patient can be discharged from nephrology standpoint. Repeat IV Lasix x 1 prior to discharge. Continue with potassium supplementation. Repeat labs as outpatient in 3 to 4 days.
--- NOTE | 2024-08-07 22:51 | P.DS ---
Providers Date of admission: 07/30/24 08:21 Attending physician: Zackery Weeks MD Consults: 07/30/24 14:55 Consult Physician Routine Consulting Provider: Jory Mason Consult Reason/Comments: arf Do you want consulting provider notified?: Yes 07/31/24 14:09 Consult Physician Routine Consulting Provider: Qasim Wong Consult Reason/Comments: ac GE Do you want consulting provider notified?: Yes 08/02/24 11:52 Consult Physician Urgent Consulting Provider: Barb Roger Consult Reason/Comments: abd pain, diarrhea Do you want consulting provider notified?: Yes Primary care physician: Reilly Langston Hospital Course: Diagnoses: Acute gastroenteritis, could be viral infection. Status post EGD on 08/04 7 multiple gastric polyps s/p biopsy with no peptic ulcer disease or gastritis. GI symptoms improved upon discharge Acute kidney injury, improved and cleared by pit worker power shovel Atrial fibrillation Left flank hematoma Hypertension A-fib and RVR on Xarelto at home. Status post ablation Hospital course: This is a pleasant 73 years old female with past medical history of multiple medical problems. Presents initially about a week ago for nausea vomiting and suspected to have acute gastroenteritis and she has been followed by GI general surgery services. She had EGD done on 08/04 showing multiple gastric polyps s/p biopsy with no evidence of gastritis or peptic ulcer disease On the day of discharge patient showed interval improvement, she feels well. She denies abdominal pain. No nausea vomiting, she tolerates diet well. She denies chest pain or dyspnea. She denies any other complaint. Patient gait is normal as she confirms. No other new complaint. Patient eager to go home today. She told the staff since morning that she is going home today no matter what. Patient does not like the hospital bed and she wants to sleep at home comfortably. Patient was cleared for discharge by ID team, pit worker power shovel. Cardiology and GI service already signed off the case. Patient no need for antibiotics upon discharge. I called her pharmacy and confirmed that the prescription in the pharmacy. Patient is on Carafate at home, also discharged on Protonix. protonix prescription is added after pt is been discharge, after prescription sent electonicallyto the pharmacy on file, i talked to pharmacist Rom who currently confirmed the prescription went through and it will be ready, as patient has not picked up her prescription yet. Problems and management plan were discussed with the patient and he verbalized understanding and acceptance Patient was found stable and can be discharged home in guarded prognosis however he needs follow-up as an outpatient. Patient was instructed to follow up with PCP within one week and patient agrees. Patient mentioned she wants to switch her PCP. Nevertheless she agrees with this recommendation to follow-up in 1 week Patient was instructed to follow-up with her own technology services manager to review her cardiac medication as per recommended by our technology services manager, she agrees that she told me she has the contact information Patient also instructed to follow-up with the GI service Dr. Lewis in 2 to 3 weeks, and to follow-up with the polyps biopsy, risk including but not limited to cancer explained and she agrees Patient was instructed to follow-up with pit worker power shovel Dr. Rose in 1 week and she agrees as well. Physical exam Gen: patient is a AAOx3, no distress CVS: S1-S2, RRR, no murmur Lungs: B/L CTA, no wheezing Abdomen: soft, no distention, no tenderness, positive bowel sounds Extremity: no leg edema or induration Time spent more than 35 minutes Patient Condition at Discharge: Stable Plan - Discharge Summary Discharge Rx Participant: No New Discharge Prescriptions: New Potassium Chloride ER [K-Dur 20] 20 meq PO BID 7 Days #14 tab hydrALAZINE HCL [Apresoline] 100 mg PO TID #180 tab Sodium Bicarbonate Tab 650 mg PO BID #60 tab Pantoprazole Sodium [Protonix] 40 mg PO BID #60 tab Magnesium Oxide [Mag-Ox] 400 mg PO BID 7 Days #14 tablet carvediloL [Coreg] 25 mg PO BID #60 tablet Hydrocortisone Pr Cream [Proctosol-Hc 2.5%] 1 applic RECTAL BID 3 Days #1 each Cholestyramine (with Sugar) [Questran Packet] 4 gm PO BID@1000,1800 3 Days #6 packet Losartan [Cozaar] 100 mg PO DAILY #60 tab Continue dilTIAZem HCL [Tiazac] 360 mg PO DAILY Sucralfate [Carafate] 1 gm PO QID Cetirizine HCl [Zyrtec] 10 mg PO DAILY Rivaroxaban [Xarelto] 20 mg PO DAILY Potassium Chloride ER [K-Dur 20] 20 meq PO BID metFORMIN HCL [Glucophage] 500 mg PO BID Dofetilide [Tikosyn] 500 mcg PO BID Atorvastatin [Lipitor] 20 mg PO DAILY Multivitamins, Thera [Multivitamin (formulary)] 1 tab PO DAILY Calcium Carbonate/Vitamin D3 [Calcium 600 mg-Vit D3 5 mcg (200 unit)] 1 tab PO DAILY Discontinued Furosemide [Lasix] 40 mg PO DAILY Esomeprazole Magnesium [NexIUM] 40 mg PO BID carvediloL [Coreg] 12.5 mg PO BID Digoxin [Digitek] 125 mcg PO DAILY hydrALAZINE HCL [Apresoline] 50 mg PO BID Metoprolol Tartrate [Lopressor] 100 mg PO BID Losartan Potassium [Cozaar] 150 mg PO DAILY Discharge Medication List Atorvastatin [Lipitor] 20 mg PO DAILY 07/30/24 [History] Calcium Carbonate/Vitamin D3 [Calcium 600 mg-Vit D3 5 mcg (200 unit)] 1 tab PO DAILY 07/30/24 [History] Cetirizine HCl [Zyrtec] 10 mg PO DAILY 07/30/24 [History] Dofetilide [Tikosyn] 500 mcg PO BID 07/30/24 [History] Multivitamins, Thera [Multivitamin (formulary)] 1 tab PO DAILY 07/30/24 [History] Potassium Chloride ER [K-Dur 20] 20 meq PO BID 07/30/24 [History] Rivaroxaban [Xarelto] 20 mg PO DAILY 07/30/24 [History] Sucralfate [Carafate] 1 gm PO QID 07/30/24 [History] dilTIAZem HCL [Tiazac] 360 mg PO DAILY 07/30/24 [History] metFORMIN HCL [Glucophage] 500 mg PO BID 07/30/24 [History] Cholestyramine (with Sugar) [Questran Packet] 4 gm PO BID@1000,1800 3 Days #6 packet 08/07/24 [Rx] Hydrocortisone Pr Cream [Proctosol-Hc 2.5%] 1 applic RECTAL BID 3 Days #1 each 08/07/24 [Rx] Losartan [Cozaar] 100 mg PO DAILY #60 tab 08/07/24 [Rx] Magnesium Oxide [Mag-Ox] 400 mg PO BID 7 Days #14 tablet 08/07/24 [Rx] Pantoprazole Sodium [Protonix] 40 mg PO BID #60 tab 08/07/24 [Rx] Potassium Chloride ER [K-Dur 20] 20 meq PO BID 7 Days #14 tab 08/07/24 [Rx] Sodium Bicarbonate Tab 650 mg PO BID #60 tab 08/07/24 [Rx] carvediloL [Coreg] 25 mg PO BID #60 tablet 08/07/24 [Rx] hydrALAZINE HCL [Apresoline] 100 mg PO TID #180 tab 08/07/24 [Rx] Follow up Appointment(s)/Referral(s): Jory Mason MD [STAFF PHYSICIAN] - 1 Week (For your kidney disease) Reilly Langston DO [Primary Care Provider] - 1-2 days Barb Roger MD [STAFF PHYSICIAN] - 2 Weeks (We recommend to follow-up results of the stomach biopsy with your doctor) Qasim Wong MD [STAFF PHYSICIAN] - 3 Weeks Ambulatory/Diagnostic Orders: Basic Metabolic Panel [LAB.AMB] Time Frame: 3 Days, Location: None Selected Magnesium [LAB.AMB] Location: None Selected Patient Instructions/Handouts: Acute Nausea and Vomiting (DC), Leukocytosis (DC) Activity/Diet/Wound Care/Special Instructions: we recommend you to discuss (Tikosyn) medication with your primary technology services manager at your follow-up appointment in 1-2 weeks, you have the contact information as you informed the medical team We recommend to follow-up results of the stomach biopsy with your doctor Dr. Mirza in 2 to 3 weeks after discharge we recommend to check your blood test with your doctor in two to three day heart healthy diet activity is restricted till you see your doctor Discharge Disposition: HOME SELF-CARE
== END 2024-08-07 19:05 | disposition home or self-care (01) | DRG 391 ==
LOC: EC 02:50 → 5NMEDONC 08:21
PROVIDERS: ADMIT Internal Medicine; ATTEND Internal Medicine
PROC: 0DB68ZX Excision of Stomach, Via Natural or Artificial Opening Endoscopic, Diagnostic (ICD-10-PCS; principal; 2024-08-04 14:00)
DX: A08.4 Viral intestinal infection, unspecified (principal); N17.0 Acute kidney failure with tubular necrosis; Z68.41 Body mass index [BMI] 40.0-44.9, adult; E87.20 Acidosis, unspecified; I27.20 Pulmonary hypertension, unspecified; E66.9 Obesity, unspecified; I12.9 Hypertensive chronic kidney disease with stage 1 through stage 4 chronic kidney disease, or unspecified chronic kidney disease; N18.9 Chronic kidney disease, unspecified; K76.0 Fatty (change of) liver, not elsewhere classified; I07.1 Rheumatic tricuspid insufficiency; E86.0 Dehydration; E87.6 Hypokalemia; I48.0 Paroxysmal atrial fibrillation; E86.1 Hypovolemia; E83.42 Hypomagnesemia; K31.7 Polyp of stomach and duodenum; K64.9 Unspecified hemorrhoids; R73.03 Prediabetes; S30.1XXA Contusion of abdominal wall, initial encounter; Z96.60 Presence of unspecified orthopedic joint implant; Z79.01 Long term (current) use of anticoagulants; Z79.84 Long term (current) use of oral hypoglycemic drugs; Z79.899 Other long term (current) drug therapy; Z88.1 Allergy status to other antibiotic agents; Z90.49 Acquired absence of other specified parts of digestive tract; Z90.710 Acquired absence of both cervix and uterus
CPT/HCPCS: 36415; 43239; 71045; 74176; 80048; 80053; 80162; 81001; 82728; 83540; 83550; 83605; 83630; 83690; 83735; 84132; 85025; 85379; 85652; 86038; 86140; 86431; 87040; 87045; 87046; 87324; 87328; 87329; 87635; 88305; 93005; 93306; 96361; 96365; 96366; 96367; 96375; 96376; 99285

== ENCOUNTER 2024-09-01 10:37 | Emergency (ER) | payer MEDICARE ==
[2024-09-01 10:40] VITALS: BP 120/89; PULSE 146; RESP 18; TEMP 97.6
--- NOTE | 2024-09-01 11:38 | ED ---
SOB HPI - General Source: patient, RN notes reviewed Mode of arrival: wheelchair Limitations: no limitations <Eliz Cutler - Last Filed: 09/01/24 11:37> - General Source: patient, RN notes reviewed, old records reviewed Mode of arrival: ambulatory Limitations: no limitations <Emmett Lockhart - Last Filed: 09/01/24 13:57> - General Chief Complaint: Shortness of Breath Stated Complaint: GLENN Time Seen by Provider: 09/01/24 10:50 - History of Present Illness Initial Comments: Quick [id number] female history of of A-fib on Xarelto presented to the emergency department chief complaint of shortness of breath, chest pressure and heart palpitations. Patient notes that this morning her heart rate was elevated in the 150s. Patient denies history of OK or CVA. (Eliz Cutler) 73 year old female presents to the ED with chief complaint of shortness of breath and atrial fibrillation. She states that when she got up this morning she felt that her heart was racing and became short of breath. She has a significant history of A-fib for which she had an ablation done in June. She states that since then, she has not had any more instances of A-fib until today. She st ates that she is taking cardizem, Xarelto, and metoprolol, all of which she took this morning. She denies recent URI, chest pain, leg swelling/tenderness, or other complaints. She states that while she was in the waiting room, she felt her heart rate slow down which relieved her shortness of breath. (Emmett Lockhart) - Related Data Home Medications Medication Instructions Recorded Confirmed Atorvastatin [Lipitor] 20 mg PO DAILY 07/30/24 07/30/24 Calcium Carbonate/Vitamin D3 1 tab PO DAILY 07/30/24 07/30/24 [Calcium 600 mg-Vit D3 5 mcg (200 unit)] Cetirizine HCl [Zyrtec] 10 mg PO DAILY 07/30/24 07/30/24 Dofetilide [Tikosyn] 500 mcg PO BID 07/30/24 07/30/24 Multivitamins, Thera [Multivitamin 1 tab PO DAILY 07/30/24 07/30/24 (formulary)] Potassium Chloride ER [K-Dur 20] 20 meq PO BID 07/30/24 07/30/24 Rivaroxaban [Xarelto] 20 mg PO DAILY 07/30/24 07/30/24 Sucralfate [Carafate] 1 gm PO QID 07/30/24 07/30/24 dilTIAZem HCL [Tiazac] 360 mg PO DAILY 07/30/24 07/30/24 metFORMIN HCL [Glucophage] 500 mg PO BID 07/30/24 07/30/24 Previous Rx's Medication Instructions Recorded Cholestyramine (with Sugar) 4 gm PO BID@1000,1800 3 Days #6 08/07/24 [Questran Packet] packet Hydrocortisone Pr Cream 1 applic RECTAL BID 3 Days #1 each 08/07/24 [Proctosol-Hc 2.5%] Losartan [Cozaar] 100 mg PO DAILY #60 tab 08/07/24 Pantoprazole Sodium [Protonix] 40 mg PO BID #60 tab 08/07/24 Sodium Bicarbonate Tab 650 mg PO BID #60 tab 08/07/24 carvediloL [Coreg] 25 mg PO BID #60 tablet 08/07/24 hydrALAZINE HCL [Apresoline] 100 mg PO TID #180 tab 08/07/24 Magnesium Oxide [Mag-Ox] 400 mg PO BID 7 Days #14 tablet 09/01/24 Potassium Chloride ER [K-Dur 20] 20 meq PO BID 7 Days #14 tab 09/01/24 Allergies Allergy/AdvReac Type Severity Reaction Status Date / Time cephalexin [From Keflex] Allergy Itching Verified 09/01/24 10:40 Review of Systems ROS Other: All systems not noted in ROS Statement are negative. <Eliz Cutler - Last Filed: 09/01/24 11:37> ROS Other: All systems not noted in ROS Statement are negative. <Emmett Lockhart - Last Filed: 09/01/24 13:57> ROS Statement: Those systems with pertinent positive or pertinent negative responses have been documented in the HPI. Past Medical History Past Medical History: Atrial Fibrillation, Hypertension History of Any Multi-Drug Resistant Organisms: None Reported Past Surgical History: Ablation, Back Surgery, Cholecystectomy, Hysterectomy, Joint Replacement, Orthopedic Surgery Past Psychological History: No Psychological Hx Reported Smoking Status: Never smoker Past Alcohol Use History: Occasional Past Drug Use History: None Reported <Eliz Cutler - Last Filed: 09/01/24 11:37> General Exam Limitations: no limitations <ZainabrichmondEliz - Last Filed: 09/01/24 11:37> Limitations: no limitations General appearance: alert, in no apparent distress Head exam: Present: atraumatic, normocephalic, normal inspection Eye exam: Present: normal appearance, PERRL, EOMI. Absent: scleral icterus, conjunctival injection, periorbital swelling ENT exam: Present: normal exam, normal oropharynx, mucous membranes moist Neck exam: Present: normal inspection. Absent: tenderness, meningismus, lymphadenopathy Respiratory exam: Present: normal lung sounds bilaterally. Absent: respiratory distress, wheezes, rales, rhonchi, stridor Cardiovascular Exam: Present: regular rate, normal rhythm, normal heart sounds. Absent: systolic murmur, diastolic murmur, rubs, gallop, clicks GI/Abdominal exam: Present: soft, normal bowel sounds. Absent: distended, tenderness, guarding, rebound, rigid Extremities exam: Present: normal inspection, full ROM, normal capillary refill. Absent: tenderness, pedal edema, joint swelling, calf tenderness Back exam: Present: normal inspection Neurological exam: Present: alert, oriented X3, CN II-XII intact Psychiatric exam: Present: normal affect, normal mood Skin exam: Present: warm, dry, intact, normal color. Absent: rash <Emmett Lockhart - Last Filed: 09/01/24 13:57> - General Exam Comments Initial Comments: Visual Physical Exam Vital signs reviewed General: Well-appearing, nontoxic, no acute distress. Head: Normocephalic, atraumatic Eyes: PERRLA, EOMI ENT: Airway patent Chest: Nonlabored breathing Skin: No visual rash, normal skin tone Neuro: Alert and oriented 3 Musculoskeletal: No gross abnormalities (Eliz Cutler) Course Vital Signs 09/01/24 10:38 Temperature 97.6 F Pulse Rate 146 H Respiratory 18 Rate Blood Pressure 120/89 O2 Sat by Pulse 97 Oximetry Medical Decision Making <Eliz Cutler - Last Filed: 09/01/24 11:37> - Lab Data Result diagrams: 09/01/24 11:43 09/01/24 11:43 - EKG Data -: EKG Interpreted by Dc <Emmett Lockhart - Last Filed: 09/01/24 13:57> - Medical Decision Making I completed the quick note portion of this chart signed Eliz Cutler PA-C (Eliz Cutler) Was pt. sent in by a medical professional or institution ([facility], [employer], urgent care, hospital, or shelter...) When possible be specific @ -No Did you speak to anyone other than the patient for history (EMS, parent, family, police, friend...)? What history was obtained from this source @ -No Did you review nursing and triage notes (agree or disagree)? Why? @ -I reviewed and agree with nursing and triage notes Were old charts reviewed (outside hosp., previous admission, EMS record, old EKG, old radiological studies, urgent care reports/EKG's, shelter records)? Report findings @ -Reviewed recent inpatient records Differential Diagnosis (chest pain, altered mental status, abdominal pain women, abdominal pain men, vaginal bleeding, weakness, fever, dyspnea, syncope, headache, dizziness, GI bleed, back pain, seizure, CVA, palpatations, mental health, musculoskeletal)? @ -Differential Palpitations Ventricular arrhythmias, atrial arrhythmias, myocardial infarction, anemia, thyrotoxicosis, electrolyte imbalance, hypokalemia, pulmonary embolism, pulmonary disease, drugs, alcohol, anxiety, stress.... This is not meant to be an all-inclusive list. EKG interpreted by me (3pts min.). @ -As above X-rays interpreted by me (1pt min.). @ -[Chest x-ray shows no acute cardiopulmonary process CT interpreted by me (1pt min.). @ -None done U/S interpreted by me (1pt. min.). @ -None done What testing was considered but not performed or refused? (CT, X-rays, U/S, labs)? Why? @ -None What meds were considered but not given or refused? Why? @ -None Did you discuss the management of the patient with other professionals (professionals i.e. [facility], [employer] PROCESSING WORKER, lab, RT, psych nurse, bilingual social worker, county library director, teacher, administrative hearing officer, comp field case manager)? Give summary @ -No Was smoking cessation discussed for >3mins.? @ -No Was critical care preformed (if so, how long)? @ -No Were there social determinants of health that impacted care today? How? (Homel essness, low income, unemployed, alcoholism, drug addiction, transportation, low edu. Level, literacy, decrease access to med. care, residential, rehab)? @ -No Was there de-escalation of care discussed even if they declined (Discuss DNR or withdrawal of care, Hospice)? DNR status @ -No What co-morbidities impacted this encounter? (DM, HTN, Smoking, COPD, CAD, Cancer, CVA, ARF, Chemo, Hep., AIDS, mental health diagnosis, sleep apnea, morbid obesity)? @A-fib Was patient admitted / discharged? Hospital course, mention meds given and route, prescriptions, significant lab abnormalities, going to OR and other pertinent info. @ -Disc patient's feels great improved at this time she converted to normal sinu s rhythm she does have mild hypomagnesemia and hypokalemia which is an ongoing issue she ran out of her medication. Patient is discharged in stable condition after replacement. Undiagnosed new problem with uncertain prognosis? @ -No Drug Therapy requiring intensive monitoring for toxicity (Heparin, Nitro, Insulin, Cardizem)? @ -No Were any procedures done? @ -No Diagnosis/symptom? @ -A-fib RVR, resolved, hypomagnesia and hypokalemia Acute, or Chronic, or Acute on Chronic? @ -Acute Uncomplicated (without systemic symptoms) or Complicated (systemic symptoms)? @ -Complicated Side effects of treatment? @ -No Exacerbation, Progression, or Severe Exacerbation? @ -No Poses a threat to life or bodily function? How? (Chest pain, USA, OK, pneumonia, PE, COPD, DKA, ARF, appy, cholecystitis, CVA, Diverticulitis, Homicidal, Suicidal, threat to staff... and all critical care pts) @ -No (Emmett Lockhart) - Lab Data Lab Results 09/01/24 09/01/24 09/01/24 Range/Units 11:43 11:43 11:43 WBC 11.1 H (3.8-10.6) k/uL RBC 4.00 (3.80-5.40) m/uL Hgb 10.1 L (11.4-16.0) gm/dL Hct 32.2 L (34.0-46.0) % MCV 80.6 (80.0-100.0) fL MCH 25.1 (25.0-35.0) pg MCHC 31.2 (31.0-37.0) g/dL RDW 16.1 H (11.5-15.5) % Plt Count 414 (150-450) k/uL MPV 7.8 Neutrophils % 66 % Lymphocytes % 27 % Monocytes % 4 % Eosinophils % 1 % Basophils % 0 % Neutrophils # 7.3 (1.3-7.7) k/uL Lymphocytes # 3.0 (1.0-4.8) k/uL Monocytes # 0.4 (0-1.0) k/uL Eosinophils # 0.1 (0-0.7) k/uL Basophils # 0.0 (0-0.2) k/uL Hypochromasia Slight Anisocytosis Slight PT 12.6 H (10.0-12.5) sec INR 1.2 H (<1.2) APTT 26.3 (22.0-30.0) sec Sodium 140 (137-145) mmol/L Potassium 3.3 L (3.5-5.1) mmol/L Chloride 104 (98-107) mmol/L Carbon Dioxide 27 (22-30) mmol/L Anion Gap 9 mmol/L BUN 8 (7-17) mg/dL Creatinine 0.89 (0.52-1.04) mg/dL Est GFR (CKD-EPI)AfAm 75 (>60 ml/min/1.73 sqM) Est GFR (CKD-EPI)NonAf 65 (>60 ml/min/1.73 sqM) Glucose 236 H (74-99) mg/dL Calcium 9.3 (8.4-10.2) mg/dL Magnesium 1.3 L (1.6-2.3) mg/dL Total Bilirubin 0.3 (0.2-1.3) mg/dL AST 25 (14-36) U/L ALT 24 (4-34) U/L Alkaline Phosphatase 90 (38-126) U/L Troponin I (0.000-0.034) ng/mL NT-Pro-B Natriuret Pep 836 pg/mL Total Protein 6.9 (6.3-8.2) g/dL Albumin 3.6 (3.5-5.0) g/dL 09/01/24 Range/Units 11:43 WBC (3.8-10.6) k/uL RBC (3.80-5.40) m/uL Hgb (11.4-16.0) gm/dL Hct (34.0-46.0) % MCV (80.0-100.0) fL MCH (25.0-35.0) pg MCHC (31.0-37.0) g/dL RDW (11.5-15.5) % Plt Count (150-450) k/uL MPV Neutrophils % % Lymphocytes % % Monocytes % % Eosinophils % % Basophils % % Neutrophils # (1.3-7.7) k/uL Lymphocytes # (1.0-4.8) k/uL Monocytes # (0-1.0) k/uL Eosinophils # (0-0.7) k/uL Basophils # (0-0.2) k/uL Hypochromasia Anisocytosis PT (10.0-12.5) sec INR (<1.2) APTT (22.0-30.0) sec Sodium (137-145) mmol/L Potassium (3.5-5.1) mmol/L Chloride (98-107) mmol/L Carbon Dioxide (22-30) mmol/L Anion Gap mmol/L BUN (7-17) mg/dL Creatinine (0.52-1.04) mg/dL Est GFR (CKD-EPI)AfAm (>60 ml/min/1.73 sqM) Est GFR (CKD-EPI)NonAf (>60 ml/min/1.73 sqM) Glucose (74-99) mg/dL Calcium (8.4-10.2) mg/dL Magnesium (1.6-2.3) mg/dL Total Bilirubin (0.2-1.3) mg/dL AST (14-36) U/L ALT (4-34) U/L Alkaline Phosphatase (38-126) U/L Troponin I <0.012 (0.000-0.034) ng/mL NT-Pro-B Natriuret Pep pg/mL Total Protein (6.3-8.2) g/dL Albumin (3.5-5.0) g/dL - EKG Data EKG Comments: EKG performed at 10: 40 A-fib with RVR rate of 138 QRS 88 QT/QTc 283/364 Repeat EKG performed at 13: 41 sinus rhythm rate of 74 PA 25 QRS 81 QT/QTc 372/399 (Emmett Lockhart) Disposition <Eliz Cutler - Last Filed: 09/01/24 11:37> Is patient prescribed a controlled substance at d/c from ED?: No When asked, does pt state using other controlled substances?: No If prescribed controlled substance>3 days was MAPS reviewed?: No If opioid is for acute pain is fill amount 7 days or less?: No If Rx opioid, was Start Talking consent form obtained?: No Time of Disposition: 13:48 <Emmett Lockhart - Last Filed: 09/01/24 13:57> Clinical Impression: A-fib, Hypokalemia, Hypomagnesemia Disposition: HOME SELF-CARE Condition: Good Additional Instructions: Please return to the Emergency Department if symptoms worsen or any other concerns. Prescriptions: Potassium Chloride ER [K-Dur 20] 20 meq PO BID 7 Days #14 tab Magnesium Oxide [Mag-Ox] 400 mg PO BID 7 Days #14 tablet Referrals: Reilly Langston DO [Primary Care Provider] - 1-2 days
--- NOTE | 2024-09-01 12:02 | XR ---
EXAMINATION TYPE: XR chest 2V DATE OF EXAM: 09/01/2024 11:56 AM COMPARISON: 08/02/2024 CLINICAL INDICATION: Female, 73 years old with history of difficulty breathing, TECHNIQUE: XR chest 2V view(s) obtained. FINDINGS: The heart size is normal. The pulmonary vasculature is normal. The lungs are clear. IMPRESSION: 1. No acute pulmonary process. [facility], , 09/01/2024 12:00 PM
[2024-09-01 12:07] LABS: Anisocytosis Slight; Basophils % (A) 0 %; Eosinophils # (A) 0.1 k/uL (0-0.7); Eosinophils % (A) 1 %; HCT 32.2 % (34.0-46.0); HGB 10.1 gm/dL (11.4-16.0); Hypochromasia Slight; Lymphocytes % (A) 27 %; MCH 25.1 pg (25.0-35.0); MCHC 31.2 g/dL (31.0-37.0); MCV 80.6 fL (80.0-100.0); Mean Platelet Volume 7.8; Monocytes # (A) 0.4 k/uL (0-1.0); Monocytes % (A) 4 %; Neutrophils # (A) 7.3 k/uL (1.3-7.7); Neutrophils % (A) 66 %; Platelet Count 414 k/uL (150-450); RDW 16.1 % (11.5-15.5); WBC 11.1 k/uL (3.8-10.6)
[2024-09-01 12:14] LABS: ALT 24 U/L (4-34); AST 25 U/L (14-36); African American GFR (CKD) 75 (>60 ml/min/1.73 sqM); Albumin 3.6 g/dL (3.5-5.0); Alkaline Phosphatase 90 U/L (38-126); Anion Gap 9 mmol/L; Blood Urea Nitrogen 8 mg/dL (7-17); Calcium 9.3 mg/dL (8.4-10.2); Carbon Dioxide 27 mmol/L (22-30); Chloride 104 mmol/L (98-107); Glucose 236 mg/dL (74-99); INR 1.2 (<1.2); Magnesium 1.3 mg/dL (1.6-2.3); Non-African American GFR(CKD) 65 (>60 ml/min/1.73 sqM); Partial Thromboplastin Time 26.3 sec (22.0-30.0); Potassium 3.3 mmol/L (3.5-5.1); Prothrombin Time 12.6 sec (10.0-12.5); Sodium 140 mmol/L (137-145); Total Bilirubin 0.3 mg/dL (0.2-1.3); Total Protein 6.9 g/dL (6.3-8.2)
[2024-09-01 12:22] LABS: NT-Pro-B-Type Natriuretic Pept 836 pg/mL
[2024-09-01] MEDS: MAGNESIUM OXIDE 400 MG TAB PO STA (13:58)
[2024-09-01] MEDS: POTASSIUM CHLORIDE ER 20 MEQ TAB.ER PO STA (13:59)
== END 2024-09-01 14:07 | disposition home or self-care (01) ==
LOC: EC 10:37
DX: E83.42 Hypomagnesemia (principal); E87.6 Hypokalemia; I48.91 Unspecified atrial fibrillation; Z88.1 Allergy status to other antibiotic agents; Z90.49 Acquired absence of other specified parts of digestive tract; Z79.01 Long term (current) use of anticoagulants; Z79.84 Long term (current) use of oral hypoglycemic drugs; Z79.899 Other long term (current) drug therapy
CPT/HCPCS: 36415; 71046; 80053; 83735; 83880; 84484; 85025; 85610; 85730; 93005; 99285

== ENCOUNTER 2024-09-24 14:34 | Emergency (ER) | payer MEDICARE ==
--- NOTE | 2024-09-24 14:52 | ED ---
General Adult HPI - General Chief complaint: Shortness of Breath Stated complaint: SOB Time Seen by Provider: 09/24/24 14:51 Source: patient Mode of arrival: wheelchair Limitations: no limitations - History of Present Illness Initial comments: -year-old female presents to the emergency department today for evaluation of 4 days of worsening epigastric abdominal pain with associated nausea no vomiting no change in bowel or bladder habits. Patient was hospitalized last month with similar symptoms she had a EGD with findings of polyps and no evidence of ulcer. Patient was discharged home on Protonix and Carafate, she has been taking the Protonix twice daily and Carafate before most meals she says it was working well until about Wednesday when she started having burning epigastric pain again. She still able to eat and drink no vomiting. Pain is no better or worse after eating. She had no associated fevers or chills. No chest pain or palpitations. Patient has had persistent shortness of breath for about a year, this was evaluated by echo during her previous hospitalization she was found to have mild pulmonary hypertension. She was also found to have acute kidney injury and has been referred to appropriate specialist. - Related Data Home Medications Medication Instructions Recorded Confirmed Atorvastatin [Lipitor] 20 mg PO DAILY 07/30/24 07/30/24 Calcium Carbonate/Vitamin D3 1 tab PO DAILY 07/30/24 07/30/24 [Calcium 600 mg-Vit D3 5 mcg (200 unit)] Cetirizine HCl [Zyrtec] 10 mg PO DAILY 07/30/24 07/30/24 Dofetilide [Tikosyn] 500 mcg PO BID 07/30/24 07/30/24 Multivitamins, Thera [Multivitamin 1 tab PO DAILY 07/30/24 07/30/24 (formulary)] Potassium Chloride ER [K-Dur 20] 20 meq PO BID 07/30/24 07/30/24 Rivaroxaban [Xarelto] 20 mg PO DAILY 07/30/24 07/30/24 Sucralfate [Carafate] 1 gm PO QID 07/30/24 07/30/24 dilTIAZem HCL [Tiazac] 360 mg PO DAILY 07/30/24 07/30/24 metFORMIN HCL [Glucophage] 500 mg PO BID 07/30/24 07/30/24 Previous Rx's Medication Instructions Recorded Cholestyramine (with Sugar) 4 gm PO BID@1000,1800 3 Days #6 08/07/24 [Questran Packet] packet Hydrocortisone Pr Cream 1 applic RECTAL BID 3 Days #1 each 08/07/24 [Proctosol-Hc 2.5%] Losartan [Cozaar] 100 mg PO DAILY #60 tab 08/07/24 Pantoprazole Sodium [Protonix] 40 mg PO BID #60 tab 08/07/24 Sodium Bicarbonate Tab 650 mg PO BID #60 tab 08/07/24 carvediloL [Coreg] 25 mg PO BID #60 tablet 08/07/24 hydrALAZINE HCL [Apresoline] 100 mg PO TID #180 tab 08/07/24 Magnesium Oxide [Mag-Ox] 400 mg PO BID 7 Days #14 tablet 09/01/24 Potassium Chloride ER [K-Dur 20] 20 meq PO BID 7 Days #14 tab 09/01/24 Allergies Allergy/AdvReac Type Severity Reaction Status Date / Time cephalexin [From Keflex] Allergy Itching Verified 09/01/24 10:40 Review of Systems ROS Statement: Those systems with pertinent positive or pertinent negative responses have been documented in the HPI. ROS Other: All systems not noted in ROS Statement are negative. Past Medical History Past Medical History: Atrial Fibrillation, Hypertension History of Any Multi-Drug Resistant Organisms: None Reported Past Surgical History: Ablation, Back Surgery, Cholecystectomy, Hysterectomy, Joint Replacement, Orthopedic Surgery Past Psychological History: No Psychological Hx Reported Smoking Status: Never smoker Past Alcohol Use History: Occasional Past Drug Use History: None Reported General Exam - General Exam Comments Initial Comments: Physical Exam GENERAL: Patient is well-developed and well-nourished. Patient is nontoxic and well- hydrated and is in no distress. Patient appears mildly uncomfortable, nontoxic HENT: Normocephalic, Atraumatic. EYES: PERRL, EOMI PULMONARY: Unlabored respirations. No audible rales rhonchi or wheezing was noted. CARDIOVASCULAR: There is a regular rate and rhythm without any murmurs gallops or rubs. ABDOMEN: Soft with normal bowel sounds. Mass in the bilateral upper quadrants and epigastrium SKIN: Skin is clear with no lesions or rashes and otherwise unremarkable. : Deferred NEUROLOGIC: Patient is alert and oriented x3. Moving all extremities spontaneously MUSCULOSKELETAL: Normal extremities with adequate strength and full range of motion. No lower extremity swelling or edema. No calf tenderness. PSYCHIATRIC: Normal psychiatric evaluation. Limitations: no limitations Course Vital Signs 09/24/24 09/24/24 14:46 17:45 Temperature 97.6 F Pulse Rate 100 90 Respiratory 20 18 Rate Blood Pressure 140/79 144/83 O2 Sat by Pulse 99 97 Oximetry Medical Decision Making - Medical Decision Making Was pt. sent in by a medical professional or institution (, PA, MANAGING PRINCIPAL, urgent care, hospital, or [place] health care facility...) When possible be specific @ -No Did you speak to anyone other than the patient for history (EMS, parent, family, police, friend...)? What history was obtained from this source @ -No Did you review nursing and triage notes (agree or disagree)? Why? @ -I reviewed and agree with nursing and triage notes Were old charts reviewed (outside hosp., previous admission, EMS record, old EKG, old radiological studies, urgent care reports/EKG's, [place] health care facility records)? Report findings @ -Previous admission reviewed Differential Diagnosis (chest pain, altered mental status, abdominal pain women, abdominal pain men, vaginal bleeding, weakness, fever, dyspnea, syncope, headache, dizziness, GI bleed, back pain, seizure, CVA, palpatations, mental health)? @Differential Abdominal Pain Women: Appendicitis, Cholecystitis, diverticulosis, ischemic bowel, pancreatitis, hepatitis, UTI, gastroenteritis, AAA, incarcerated hernia, bowel obstruction, constipation, inflammatory bowel, hepatitis, peptic ulcer disease, splenic infarction, perforated viscus, vulvitis, ovarian torsion, PID, kidney stone, placenta abruption, this is not meant to be an all-inclusive list , MDM differential chest pain EKG interpreted by me (3pts min.). @ -As above X-rays interpreted by me (1pt min.). @ -None done CT interpreted by me (1pt min.). @ -CT abdomen with no evidence of perforation or mass U/S interpreted by me (1pt. min.). @ -None done What testing was considered but not performed or refused? (CT, X-rays, U/S, labs)? Why? @ -None What meds were considered but not given or refused? Why? @ -None Did you discuss the management of the patient with other professionals (professionals i.e. Dr., PA, MANAGING PRINCIPAL, lab, RT, psych nurse, social work supervisor, pediatric oncology nurse, teacher, county records management officer, case management associate)? Give summary @ -No Was smoking cessation discussed for >3mins.? @ -No Was critical care preformed (if so, how long)? @ -No Were there social determinants of health that impacted care today? How? (Homelessness, low income, unemployed, alcoholism, drug addiction, transportation, low edu. Level, literacy, decrease access to med. care, residential, rehab)? @ -No Was there de-escalation of care discussed even if they declined (Discuss DNR or withdrawal of care, Hospice)? DNR status @ -No What co-morbidities impacted this encounter? (DM, HTN, Smoking, COPD, CAD, Cancer, CVA, ARF, Chemo, Hep., AIDS, mental health diagnosis, sleep apnea, morbid obesity)? @ -None Was patient admitted / discharged? Hospital course, mention meds given and route, prescriptions, significant lab abnormalities, going to OR and other pertinent info. @ -Discharged Patient was seen and evaluated, patient had upper GI scope last month, started on PPI and carafate, worsening pain since wednesday. Still able to tolerate oral intake, no change in bowel or bladder habits. Lactic mildly elevated, magnesium chronically low - unchanged. Patient treated with Mag and IV fluids, patient received GI cocktail and protonix IV. Reported temporary improvement. Discussed with patient that she had a negative CT 2 mo ago, and a scope with gastritis, pain seems pruritus however patient states this is different from pain from her previous admission and would like another CT performed. CT was performed again there is no acute findings. Patient received a single dose of pain medications and antiemetics and was stable for discharge home with continued outpatient follow-up with GI. In addition patient was advised that her echo showed pulmonary hypertension and she was given contact information for outpatient follow-up with pulmonology. Undiagnosed new problem with uncertain prognosis? @ -No Drug Therapy requiring intensive monitoring for toxicity (Heparin, Nitro, Insulin, Cardizem)? @ -No Were any procedures done? @ -No Diagnosis/symptom? @ -Epigastric pain Acute, or Chronic, or Acute on Chronic? @ -Acute on Chronic Uncomplicated (without systemic symptoms) or Complicated (systemic symptoms)? @ -Default Side effects of treatment? @ -No Exacerbation, Progression, or Severe Exacerbation? @ -No Poses a threat to life or bodily function? How? (Chest pain, [place], [place], pneumonia, PE, COPD, DKA, ARF, appy, cholecystitis, CVA, Diverticulitis, Homicidal, Suicidal, threat to staff... and all critical care pts) @ -No - Lab Data Result diagrams: 09/24/24 15:27 09/24/24 15:27 Lab Results 09/24/24 09/24/24 09/24/24 Range/Units 15:27 15:27 15:27 WBC 12.2 H (3.8-10.6) k/uL RBC 3.88 (3.80-5.40) m/uL Hgb 10.1 L (11.4-16.0) gm/dL Hct 31.4 L (34.0-46.0) % MCV 81.0 (80.0-100.0) fL MCH 26.1 (25.0-35.0) pg MCHC 32.3 (31.0-37.0) g/dL RDW 16.1 H (11.5-15.5) % Plt Count 477 H (150-450) k/uL MPV 7.1 Neutrophils % 68 % Lymphocytes % 25 % Monocytes % 4 % Eosinophils % 2 % Basophils % 0 % Neutrophils # 8.2 H (1.3-7.7) k/uL Lymphocytes # 3.0 (1.0-4.8) k/uL Monocytes # 0.5 (0-1.0) k/uL Eosinophils # 0.2 (0-0.7) k/uL Basophils # 0.0 (0-0.2) k/uL Hypochromasia Slight Anisocytosis Slight Sodium 139 (137-145) mmol/L Potassium 3.4 L (3.5-5.1) mmol/L Chloride 106 (98-107) mmol/L Carbon Dioxide 26 (22-30) mmol/L Anion Gap 7 mmol/L BUN 11 (7-17) mg/dL Creatinine 0.95 (0.52-1.04) mg/dL Est GFR (CKD-EPI)AfAm 69 (>60 ml/min/1.73 sqM) Est GFR (CKD-EPI)NonAf 60 (>60 ml/min/1.73 sqM) Glucose 210 H (74-99) mg/dL Lactic Ac Sepsis Rflx Plasma Lactic Acid Emiliano 2.9 H* (0.7-2.0) mmol/L Calcium 9.2 (8.4-10.2) mg/dL Magnesium 1.4 L (1.6-2.3) mg/dL Total Bilirubin 0.2 (0.2-1.3) mg/dL AST 19 (14-36) U/L ALT 24 (4-34) U/L Alkaline Phosphatase 109 (38-126) U/L Total Protein 6.5 (6.3-8.2) g/dL Albumin 3.5 (3.5-5.0) g/dL Lipase 99 (23-300) U/L 09/24/24 Range/Units 16:11 WBC (3.8-10.6) k/uL RBC (3.80-5.40) m/uL Hgb (11.4-16.0) gm/dL Hct (34.0-46.0) % MCV (80.0-100.0) fL MCH (25.0-35.0) pg MCHC (31.0-37.0) g/dL RDW (11.5-15.5) % Plt Count (150-450) k/uL MPV Neutrophils % % Lymphocytes % % Monocytes % % Eosinophils % % Basophils % % Neutrophils # (1.3-7.7) k/uL Lymphocytes # (1.0-4.8) k/uL Monocytes # (0-1.0) k/uL Eosinophils # (0-0.7) k/uL Basophils # (0-0.2) k/uL Hypochromasia Anisocytosis Sodium (137-145) mmol/L Potassium (3.5-5.1) mmol/L Chloride (98-107) mmol/L Carbon Dioxide (22-30) mmol/L Anion Gap mmol/L BUN (7-17) mg/dL Creatinine (0.52-1.04) mg/dL Est GFR (CKD-EPI)AfAm (>60 ml/min/1.73 sqM) Est GFR (CKD-EPI)NonAf (>60 ml/min/1.73 sqM) Glucose (74-99) mg/dL Lactic Ac Sepsis Rflx Y Plasma Lactic Acid Emiliano (0.7-2.0) mmol/L Calcium (8.4-10.2) mg/dL Magnesium (1.6-2.3) mg/dL Total Bilirubin (0.2-1.3) mg/dL AST (14-36) U/L ALT (4-34) U/L Alkaline Phosphatase (38-126) U/L Total Protein (6.3-8.2) g/dL Albumin (3.5-5.0) g/dL Lipase (23-300) U/L Disposition Clinical Impression: Epigastric pain Disposition: HOME SELF-CARE Condition: Stable Is patient prescribed a controlled substance at d/c from ED?: No Referrals: Reilly Langston DO [Primary Care Provider] - 1-2 days Desi Skinner MD [STAFF PHYSICIAN] - 1-2 days
[2024-09-24] MEDS: MAG HYDROX/AL HYDROX/SIMETH 30 ML, HYOSCYAMINE ELIXIR 10 ML, LIDOCAINE VISCOUS 2% 10 ML PO STA (15:38)
[2024-09-24] MEDS: PANTOPRAZOLE 40 MG/10 ML VIAL IVP STA (15:41)
[2024-09-24 15:52] LABS: Anisocytosis Slight; Basophils % (A) 0 %; Eosinophils # (A) 0.2 k/uL (0-0.7); Eosinophils % (A) 2 %; HCT 31.4 % (34.0-46.0); HGB 10.1 gm/dL (11.4-16.0); Hypochromasia Slight; Lymphocytes % (A) 25 %; MCH 26.1 pg (25.0-35.0); MCHC 32.3 g/dL (31.0-37.0); Mean Platelet Volume 7.1; Monocytes # (A) 0.5 k/uL (0-1.0); Monocytes % (A) 4 %; Neutrophils # (A) 8.2 k/uL (1.3-7.7); Neutrophils % (A) 68 %; Platelet Count 477 k/uL (150-450); RBC 3.88 m/uL (3.80-5.40); RDW 16.1 % (11.5-15.5); WBC 12.2 k/uL (3.8-10.6)
[2024-09-24 16:01] LABS: ALT 24 U/L (4-34); AST 19 U/L (14-36); African American GFR (CKD) 69 (>60 ml/min/1.73 sqM); Albumin 3.5 g/dL (3.5-5.0); Alkaline Phosphatase 109 U/L (38-126); Anion Gap 7 mmol/L; Blood Urea Nitrogen 11 mg/dL (7-17); Calcium 9.2 mg/dL (8.4-10.2); Carbon Dioxide 26 mmol/L (22-30); Chloride 106 mmol/L (98-107); Glucose 210 mg/dL (74-99); Lipase 99 U/L (23-300); Magnesium 1.4 mg/dL (1.6-2.3); Non-African American GFR(CKD) 60 (>60 ml/min/1.73 sqM); Potassium 3.4 mmol/L (3.5-5.1); Sodium 139 mmol/L (137-145); Total Bilirubin 0.2 mg/dL (0.2-1.3); Total Protein 6.5 g/dL (6.3-8.2)
--- NOTE | 2024-09-24 16:01 | XR ---
EXAMINATION TYPE: XR KUB DATE OF EXAM: 09/24/2024 3:57 PM COMPARISON: None available. CLINICAL INDICATION: Female, 74 years old with history of abdominal pain; [facility] TECHNIQUE: One radiographic view of the abdomen was obtained. FINDINGS: The bowel gas pattern is nonspecific without dilated loops of small or large bowel. . Fecal material and gas are demonstrated throughout the colon and rectum. There is no evidence for organomegaly or pneumoperitoneum. Posterior lumbosacral spinal fusion hardwa re. No abnormal calcifications are present. IMPRESSION: Nonspecific bowel gas pattern without radiographic evidence for acute process. [facility], , 09/24/2024 3:59 PM
[2024-09-24] MEDS: SODIUM CHLORIDE 0.9% 1,000 ML IV ONE (16:47)
[2024-09-24] MEDS: MAGNESIUM SULFATE-D5W PMX 1 GM in DEXTROSE/WATER 1 100ML.BAG IVPB ONE (16:47)
--- NOTE | 2024-09-24 18:33 | CT ---
EXAMINATION TYPE: CT abdomen pelvis w con DATE OF EXAM: 09/24/2024 6:23 PM COMPARISON: Previous CT abdomen/pelvis 07/30/2024 CLINICAL INDICATION: Female, 74 years old with history of epigastric pain; Generalized abdominal pain x4 days, getting worse. TECHNIQUE: Axial CT abdomen pelvis w con;Sagittal and coronal reformats were created on a separate w orkstation. Contrast used:100ml mL of Isovue 300 with IV Contrast, (none if empty) Oral contrast used: without Oral Contrast (none if empty) CT DLP: 2080.9 mGycm, Automated exposure control for dose reduction was used. FINDINGS: LOWER CHEST: Unremarkable ABDOMEN LIVER: Diffusely hypoattenuating parenchyma. GALLBLADDER AND BILE DUCTS: The gallbladder is surgically absent. PANCREAS: Unremarkable. SPLEEN: Unremarkable. ADRENAL GLANDS: Unremarkable. KIDNEYS AND URETERS: No evidence of hydronephrosis or renal calculus. The ureters are unremarkable. PELVIS BLADDER: No evidence for wall thickening or mass given limitations of exam. REPRODUCTIVE: Unremarkable. ABDOMEN & PELVIS STOMACH AND BOWEL: Stomach and duodenum are unremarkable. Scattered diverticula are noted throughout the colon. No evidence of bowel obstruction. PERITONEUM/RETROPERITONEUM: No evidence of pneumoperitoneum or free fluid. VASCULATURE: No evidence of aortic aneurysm. MUSCULOSKELETAL: No acute osseous abnormalities. Posterior lumbosacral spinal fusion hardware and mul tilevel intervertebral disc spacer device is again noted. Lumbosacral spine degenerative changes. LYMPH NODES: No gross evidence for lymphadenopathy. SOFT TISSUE/ABDOMINAL WALL: Unremarkable IMPRESSION: No acute abnormality in the abdomen/pelvis or CT findings to explain reported symptoms. [facility], , 09/24/2024 6:31 PM
[2024-09-24] MEDS: ONDANSETRON 4 MG/2 ML VIAL IVP STA (19:45)
[2024-09-24] MEDS: MORPHINE SULFATE 4 MG/ML SYRINGE IVP STA (19:45)
[2024-09-24 19:55] VITALS: BP 153/90; PULSE 95; RESP 17; TEMP 98
== END 2024-09-24 20:08 | disposition home or self-care (01) ==
LOC: EC 14:34
DX: R10.13 Epigastric pain (principal); Z88.1 Allergy status to other antibiotic agents; Z90.49 Acquired absence of other specified parts of digestive tract
CPT/HCPCS: 36415; 80053; 83605; 83690; 83735; 85025; 74018; 74177; 99285; 96365; 96375 ×3; J2270; J2405; J3475; Q9967; J2470

== ENCOUNTER → 2024-09-29 | Outpatient (CLI) | payer MEDICARE ==
[2024-09-29 11:42] LABS: African American GFR (CKD) 59 (>60 ml/min/1.73 sqM); Blood Urea Nitrogen 12 mg/dL (7-17); Non-African American GFR(CKD) 51 (>60 ml/min/1.73 sqM)
--- NOTE | 2024-09-29 12:18 | CT ---
EXAMINATION TYPE: CT angio chest DATE OF EXAM: 09/29/2024 COMPARISON: None CLINICAL INDICATION: Female, 74 years old with history of R06.02 SHORTNESS OF BREATH; PHH, SOB TECHNIQUE: CTA scan of the thorax is performed with IV Contrast, patient injected with 80cc mL of Isovue 370, pu lmonary embolism protocol. MIP images are created and reviewed. CT DLP: 430.[address] CTDI: mGy Automated exposure control for dose reduction was used. FINDINGS: LUNGS: The lungs are grossly clear, there is no concerning parenchymal mass or nodule identified. T here is no pleural effusion or pneumothorax seen. The tracheobronchial tree is patent. MEDIASTINUM: There is satisfactory enhancement of the pulmonary artery and its branches, there is no CT evidence for pulmonary embolism. There are no greater than 1 cm hilar or mediastinal lymph nodes. No pericardial effusion is seen. There is moderate cardiomegaly. OTHER: No additional significant abnormality is seen. IMPRESSION: 1. No pulmonary embolism. 2. Moderate cardiomegaly. 3. No definite acute cardiopulmonary disease. [facility], , 09/29/2024 12:16 PM
== END | disposition home or self-care (01) ==
LOC: RADCTMAIN 11:03
PROVIDERS: ATTEND Internal Medicine Critical Care Medicine
DX: R06.02 Shortness of breath (principal); I51.7 Cardiomegaly
CPT/HCPCS: 82565; 84520; 71275; 36415; Q9967

== ENCOUNTER → 2024-10-19 | Outpatient (CLI) | payer MEDICARE ==
--- NOTE | 2024-10-19 10:21 | FL ---
EXAMINATION TYPE: FL UGI air w small bowel DATE OF EXAM: 10/19/2024 COMPARISON: None CLINICAL INDICATION: Female, 74 years old with history of R19.4 CHANGE IN BOWEL HABIT; PH, TECHNIQUE: A angle contrast UGI study is performed with small bowel follow through. A total of 1 mi nute and 54 seconds of fluoroscopic time was utilized during procedure and images obtained. Total dose area product (DAP) in uGy*m?, mGy*cm? (or similar): The provided. FINDINGS: [employer] Financial [employer]st image of the abdomen shows postsurgical change involving the vertebral column with m ultilevel degenerative disc disease. Surgical changes involving the pelvis noted. Bilateral hypertrop hic hip arthropathy. Calcification the right upper quadrant could relate to a gallstone or hepatic gr anuloma.. Tertiary contractions of the esophagus. No filling defect or obstruction. Stomach was normal in position. There is no filling defect. No significant esophageal reflux was seen during real time performance of this study. The duodenal bulb and sweep are unremarkable. The small bowel study shows normal transit to the colon in less than extent minutes. There is normal mucosal fold pattern throughout the small bowel. There is no evidence of any stricture or filling d efect noted. The terminal ileum is unremarkable. IMPRESSION: 1. Tertiary contractions of the esophagus. No hiatal hernia or gastroesophageal reflux. [facility], , 10/19/2024 10:19 AM
== END | disposition home or self-care (01) ==
LOC: RADFLMAIN 07:52
PROVIDERS: ATTEND Internal Medicine Gastroenterology
DX: R19.4 Change in bowel habit (principal)
CPT/HCPCS: 74240; 74248